=== PATIENT | male | born 1965 | race Caucasian/White ===

== ENCOUNTER 2018-09-05 15:32 | Emergency (ER) | payer MEDICARE, OTHER ==
[~2018-09-05] VITALS: Ht 177.8 cm; Wt 93.0 kg
--- OUTSIDE RECORDS SUMMARY | 2018-09-05 15:38 | XMS REPORT ---
Author Author JOSSUE TRUJILLO Organization [facility] Address [address] [place] [address] Care Team Providers Care Lead Business Systems Analyst Name Role Phone CASSANDRA JOSSUE Unavailable PROBLEMS Type Condition ICD9-CM Code [id number] Code Onset Dates Condition Status SNOMED Code Problem Chronic obstructive pulmonary disease, unspecified COPD type J44.9 Active 97649811 Problem Erectile dysfunction, unspecified erectile dysfunction type N52.9 Active 711638221 Problem Hypercholesteremia E78.00 Active 73615336 Problem Mixed hyperlipidemia E78.2 Active 691856885 Problem History of schizoaffective disorder Z86.59 Active 820700928 Problem Benign prostatic hyperplasia with lower urinary tract symptoms, unspecified morphology N40.1 Active 804261491 Problem Cigarette nicotine dependence without complication F17.210 Active 95758588 Problem History of gout Z87.39 Active 433618312 ALLERGIES No Known Allergies ENCOUNTERS Encounter Location Date Diagnosis [place] [address] [address] May, Chronic obstructive pulmonary disease, unspecified COPD type J44.9 [facility] [address] [place] [id number] [place] [address] May, Medicare annual wellness visit, initial Z00.00 ; Encounter for immunization Z23 ; Chronic obstructive pulmonary disease, unspecified COPD type J44.9 ; Mixed hyperlipidemia E78.2 ; Benign prostatic hyperplasia with lower urinary tract symptoms, unspecified morphology N40.1 ; Erectile dysfunction, unspecified erectile dysfunction type N52.9 ; Cigarette nicotine dependence without complication F17.210 and Hypercholesteremia E78.00 [facility] [address] [place] [id number] [place] [address] Dec, [facility] [address] [place] [id number] [place] [address] Aug, Hypercholesteremia E78.00 [place] [address] [place] [id number] [place] [address] Aug, Chronic obstructive pulmonary disease, unspecified COPD type J44.9 ; Mixed hyperlipidemia E78.2 ; Plantar fasciitis M72.2 and Cigarette nicotine dependence without complication F17.210 [place] [address] [place] [id number] [place] [address]65- [address] Aug, Chronic obstructive pulmonary disease, unspecified COPD type J44.9 ; Plantar fasciitis M72.2 ; Cigarette nicotine dependence without complication F17.210 and Mixed hyperlipidemia E78.[address] [address] May, Chronic obstructive pulmonary disease, unspecified COPD type J44.9 [place] [address] [address] Mar, [place] [address] [address] Mar, Chronic obstructive pulmonary disease, unspecified COPD type J44.9 ; Cigarette nicotine dependence without complication F17.210 and Encounter for immunization Z23 [place] [address] [place] [id number] [place] [address]- [address] 11 Mar, 2017 Chronic obstructive pulmonary disease, unspecified COPD type J44.9 ; Pseudogout of foot, right M11.271 ; Erectile dysfunction, unspecified erectile dysfunction type N52.9 and Benign prostatic hyperplasia with lower urinary tract symptoms, unspecified morphology N40.1 [place] [address] [place] [id number] [place] [address]- [address]153 Sep, [address] [address] Sep, Chronic obstructive pulmonary disease, unspecified COPD type J44.9 ; Benign prostatic hyperplasia with lower urinary tract symptoms, unspecified morphology N40.1 and Screening cholesterol level Z13.220 [place] [address] [address] 14 Sep, 2016 Chronic obstructive pulmonary disease, unspecified COPD type J44.9 ; Pseudogout of foot, right M11.271 ; Erectile dysfunction, unspecified erectile dysfunction type N52.9 ; Benign prostatic hyperplasia with lower urinary tract symptoms, unspecified morphology N40.1 ; Pulmonary emphysema , unspecified emphysema type J43.9 and Screening cholesterol level Z13.220 [facility] [address] [facility] [id number] [address] Sep, [facility] [address] [facility] [id number] [place] [address] Aug, Right foot pain M79.671 IMMUNIZATIONS No Known Immunizations SOCIAL HISTORY Never Assessed REASON FOR VISIT New provider visit - Ant BATES, PT reports he has a lump in his chest for the last 7 years. -Ant BATES PLAN OF CARE VITAL SIGNS Height 70 in 2018-06-12 Weight 205.6 lbs 2018-06-12 Temperature 98.9 degrees Fahrenheit 2018-06-12 Heart Rate 86 bpm 2018-06-12 Respiratory Rate 20 2018-06-12 Oximetry 96 % 2018-06-12 BMI 29.5 kg/m2 2018-06-12 Blood pressure systolic 132 mmHg 2018-06-12 Blood pressure diastolic 80 mmHg 2018-06-12 MEDICATIONS Medication Instructions Dosage Frequency Start Date End Date Duration Status Indomethacin 50 mg TAKE ONE (1) CAPSULE BY MOUTH TWICE DAILY WITH FOOD OR MILK 60 Active Tamsulosin HCl 0.4 MG 1 capsule 24h 30 Active Atorvastatin Calcium 20 mg Orally Once a day 1 tablet 24h Aug, 30 day(s) Active ProAir HFA 108 (90 Base) MCG/ACT INHALE 2 PUFFS BY MOUTH EVERY 4 HOURS NEEDED Active Allopurinol 100 mg 1 tablet 24h 30 Active PredniSONE 20 mg Orally Once a day 2 tablets 24h May, 5 days Active Symbicort 160-4.5 MCG/ACT Inhalation 2 times a day 2 puffs 12h Mar, 30 days Active Viagra 100 MG TAKE ONE-HALF TABLET BY MOUTH ONCE DAILY NEEDED 30 MINUTES BEFORE SEX (MUST HAVE APPOINTMENT FOR REFILL) 18 Active Flomax 0.4 MG TAKE ONE CAPSULE BY MOUTH ONCE DAILY 30 Active RESULTS No Results PROCEDURES Procedure Date Ordered Result Body Site [facility] VISIT ESTABLISHED PATIENT Jun 12, 2018 INSTRUCTIONS MEDICATIONS ADMINISTERED No Known Medications MEDICAL (GENERAL) HISTORY Type Description Date Medical History bloody stools Medical History shizoaffective Medical History PTSD Medical History OCD Medical History bipolar Medical History Jaw Fx Medical History clavicle Fx Medical History emphysema Surgical History colonoscopy (also 2007) 2000 Surgical History jaw reconstruction 1985
--- OUTSIDE RECORDS SUMMARY | 2018-09-05 15:38 | XMS REPORT ---
Author Author PIPER VAUGHN Organization [facility] Address [address] [place] [address] Care Team Providers Care Hotel Front Desk Clerk Name Role Phone PIPER VAUGHN Unavailable PROBLEMS Type Condition ICD9-CM Code NVL63-BY Code Onset Dates Condition Status SNOMED Code Problem Chronic obstructive pulmonary disease, unspecified COPD type J44.9 Active 31948730 Problem Erectile dysfunction, unspecified erectile dysfunction type N52.9 Active 224559955 Problem Hypercholesteremia E78.00 Active 01366286 Problem Mixed hyperlipidemia E78.2 Active 378701279 Problem History of schizoaffective disorder Z86.59 Active 051462600 Problem Benign prostatic hyperplasia with lower urinary tract symptoms, unspecified morphology N40.1 Active 430683522 Problem Cigarette nicotine dependence without complication F17.210 Active 62773309 Problem History of gout Z87.39 Active 027289118 ALLERGIES No Information ENCOUNTERS Encounter Location Date Diagnosis [place] [address] [address] Dec, [place] [address] [place] [id number] [place] [address] Aug, Hypercholesteremia E78.00 [place] [address] [address] Aug, Chronic obstructive pulmonary disease, unspecified COPD type J44.9 ; Mixed hyperlipidemia E78.2 ; Plantar fasciitis M72.2 and Cigarette nicotine dependence without complication F17.210 [place] [address] [place] [id number] [place] [address] Aug, Chronic obstructive pulmonary disease, unspecified COPD type J44.9 ; Plantar fasciitis M72.2 ; Cigarette nicotine dependence without complication F17.210 and Mixed hyperlipidemia E78.2 [place] [address] [place] [id number] [address] 16 May, 2017 Chronic obstructive pulmonary disease, unspecified COPD type J44.9 [place] [address] [place] [id number] [place] [address]- [address] 12 Mar, 2017 [place] [address] [address] 28 Mar, 2017 Chronic obstructive pulmonary disease, unspecified COPD type J44.9 ; Cigarette nicotine dependence without complication F17.210 and Encounter for immunization Z23 [place] [address] [place] [id number] [place] [address]- [address] 11 Mar, 2017 Chronic obstructive pulmonary disease, unspecified COPD type J44.9 ; Pseudogout of foot, right M11.271 ; Erectile dysfunction, unspecified erectile dysfunction type N52.9 and Benign prostatic hyperplasia with lower urinary tract symptoms, unspecified morphology N40.1 [place] [id number] [place] [address]- [address] 18 Sep, 2016 [place] [address] [place] [id number] [place] [address]- [address] 17 Sep, 2016 Chronic obstructive pulmonary disease, unspecified COPD type J44.9 ; Benign prostatic hyperplasia with lower urinary tract symptoms, unspecified morphology N40.1 and Screening cholesterol level Z13.220 [place] [address] [address] 14 Sep, 2016 Chronic obstructive pulmonary disease, unspecified COPD type J44.9 ; Pseudogout of foot, right M11.271 ; Erectile dysfunction, unspecified erectile dysfunction type N52.9 ; Benign prostatic hyperplasia with lower urinary tract symptoms, unspecified morphology N40.1 ; Pulmonary emphysema , unspecified emphysema type J43.9 and Screening cholesterol level Z13.220 [place] [address] [place] [address]- [address] 11 Sep, 2016 [facility] WALK IN [facility] [address] [address] Aug, Right foot pain M79.671 IMMUNIZATIONS No Known Immunizations SOCIAL HISTORY Never Assessed REASON FOR VISIT Lab (walk-in) PLAN OF CARE VITAL SIGNS MEDICATIONS Unknown Medications RESULTS No Results PROCEDURES Procedure Date Ordered Result Body Site COMPREHEN METABOLIC PANEL September 12, 2017 LIPID PANEL September 12, 2017 INSTRUCTIONS MEDICATIONS ADMINISTERED No Known Medications MEDICAL (GENERAL) HISTORY Type Description Date Medical History bloody stools Medical History shizoaffective Medical History PTSD Medical History OCD Medical History bipolar Medical History Jaw Fx Medical History clavicle Fx Medical History emphysema Surgical History colonoscopy (also 2007) 2000 Surgical History jaw reconstruction 1985
--- OUTSIDE RECORDS SUMMARY | 2018-09-05 15:38 | XMS REPORT ---
Author Author PIPER VAUGHN Organization [facility] Address [address] [place] [address] Care Team Providers Care Flame Annealing Machine Operator Name Role Phone PIPER VAUGHN Unavailable PROBLEMS Type Condition ICD9-CM Code [id number]-[id number] Code Onset Dates Condition Status SNOMED Code Problem Chronic obstructive pulmonary disease, unspecified COPD type J44.9 Active 25235401 Problem Erectile dysfunction, unspecified erectile dysfunction type N52.9 Active 689286472 Problem Hypercholesteremia E78.00 Active 82895410 Problem Mixed hyperlipidemia E78.2 Active 088252661 Problem History of schizoaffective disorder Z86.59 Active 148877427 Problem Benign prostatic hyperplasia with lower urinary tract symptoms, unspecified morphology N40.1 Active 043282925 Problem Cigarette nicotine dependence without complication F17.210 Active 03996455 Problem History of gout Z87.39 Active 696582057 ALLERGIES No Information ENCOUNTERS Encounter Location Date Diagnosis [place] [address] [address] Dec, [place] [address] [place] [id number] [place] [address]- [address] Aug, Hypercholesteremia E78.00 [place] [address] [place] [id number] [place] [address]- [address] Aug, Chronic obstructive pulmonary disease, unspecified COPD type J44.9 ; Mixed hyperlipidemia E78.2 ; Plantar fasciitis M72.2 and Cigarette nicotine dependence without complication F17.210 [place] [address] [place] [id number] [place] [address]- [address] Aug, Chronic obstructive pulmonary disease, unspecified COPD type J44.9 ; Plantar fasciitis M72.2 ; Cigarette nicotine dependence without complication F17.210 and Mixed hyperlipidemia E78.2 [place] [address] [place] [id number] [address] 16 May, 2017 Chronic obstructive pulmonary disease, unspecified COPD type J44.9 [place] [address] [place] [id number] [place] [address]- [address] 12 Mar, 2017 [place] [address] [address] 28 Mar, 2017 Chronic obstructive pulmonary disease, unspecified COPD type J44.9 ; Cigarette nicotine dependence without complication F17.210 and Encounter for immunization Z23 [place] [address] [place] [id number] [place] [address]65- 3[address] 11 Mar, 2017 Chronic obstructive pulmonary disease, unspecified COPD type J44.9 ; Pseudogout of foot, right M11.271 ; Erectile dysfunction, unspecified erectile dysfunction type N52.9 and Benign prostatic hyperplasia with lower urinary tract symptoms, unspecified morphology N40.1 [place] [id number] [place] [address]- [address] 18 Sep, 2016 [place] [address] [place] [id number] [place] [address] 89283- 24[address] 17 Sep, 2016 Chronic obstructive pulmonary disease, unspecified COPD type J44.9 ; Benign prostatic hyperplasia with lower urinary tract symptoms, unspecified morphology N40.1 and Screening cholesterol level Z13.220 [place] [address] [address] 14 Sep, 2016 Chronic obstructive pulmonary disease, unspecified COPD type J44.9 ; Pseudogout of foot, right M11.271 ; Erectile dysfunction, unspecified erectile dysfunction type N52.9 ; Benign prostatic hyperplasia with lower urinary tract symptoms, unspecified morphology N40.1 ; Pulmonary emphysema , unspecified emphysema type J43.9 and Screening cholesterol level Z13.220 [place] [address] [place] [address]32- 2135 11 Sep, 2016 [facility] WALK IN [facility] [address] [address] Aug, Right foot pain M79.671 IMMUNIZATIONS No Known Immunizations SOCIAL HISTORY Never Assessed REASON FOR VISIT med refill PLAN OF CARE VITAL SIGNS MEDICATIONS Medication Instructions Dosage Frequency Start Date End Date Duration Status ProAir HFA 108 (90 Base) MCG/ACT INHALE 2 PUFFS BY MOUTH EVERY 4 HOURS NEEDED Active RESULTS No Results PROCEDURES No Known procedures INSTRUCTIONS MEDICATIONS ADMINISTERED No Known Medications MEDICAL (GENERAL) HISTORY Type Description Date Medical History bloody stools Medical History shizoaffective Medical History PTSD Medical History OCD Medical History bipolar Medical History Jaw Fx Medical History clavicle Fx Medical History emphysema Surgical History colonoscopy (also 2007) 2000 Surgical History jaw reconstruction 1985
--- OUTSIDE RECORDS SUMMARY | 2018-09-05 15:38 | XMS REPORT ---
Author Author PIPER VAUGHN Organization [facility] Address [address] [place] [address] Care Team Providers Care Data Management Associate Name Role Phone PIPER VAUGHN Unavailable PROBLEMS Type Condition ICD9-CM Code WAQ48-RW Code Onset Dates Condition Status SNOMED Code Problem Chronic obstructive pulmonary disease, unspecified COPD type J44.9 Active 93685604 Problem Erectile dysfunction, unspecified erectile dysfunction type N52.9 Active 488571929 Problem Hypercholesteremia E78.00 Active 93234834 Problem Mixed hyperlipidemia E78.2 Active 828432090 Problem History of schizoaffective disorder Z86.59 Active 032197306 Problem Benign prostatic hyperplasia with lower urinary tract symptoms, unspecified morphology N40.1 Active 280028106 Problem Cigarette nicotine dependence without complication F17.210 Active 91009549 Problem History of gout Z87.39 Active 717525500 ALLERGIES No Information ENCOUNTERS Encounter Location Date Diagnosis [place] [address] [address] Dec, [place] [address] [place] [id number] [place] [address]- [address] Aug, Hypercholesteremia E78.00 [place] [address] [address] Aug, Chronic obstructive pulmonary disease, unspecified COPD type J44.9 ; Mixed hyperlipidemia E78.2 ; Plantar fasciitis M72.2 and Cigarette nicotine dependence without complication F17.210 [place] [address] [place] [id number] [place] [address]- [address] Aug, Chronic obstructive pulmonary disease, unspecified COPD type J44.9 ; Plantar fasciitis M72.2 ; Cigarette nicotine dependence without complication F17.210 and Mixed hyperlipidemia E78.2 [place] [address] [place] [id number] [address] 16 May, 2017 Chronic obstructive pulmonary disease, unspecified COPD type J44.9 [place] [address] [place] [id number] [place] [address]- [address] 12 Mar, 2017 [place] [address] [address] 28 Mar, 2017 Chronic obstructive pulmonary disease, unspecified COPD type J44.9 ; Cigarette nicotine dependence without complication F17.210 and Encounter for immunization Z23 [place] [address] [place] [id number] [place] [address] 6[address]- [address] 11 Mar, 2017 Chronic obstructive pulmonary disease, unspecified COPD type J44.9 ; Pseudogout of foot, right M11.271 ; Erectile dysfunction, unspecified erectile dysfunction type N52.9 and Benign prostatic hyperplasia with lower urinary tract symptoms, unspecified morphology N40.1 [place] [id number] [place] [address]- [address] 18 Sep, 2016 [place] [address] [place] [id number] [place] [address] 19714- 69[address] 17 Sep, 2016 Chronic obstructive pulmonary disease, unspecified COPD type J44.9 ; Benign prostatic hyperplasia with lower urinary tract symptoms, unspecified morphology N40.1 and Screening cholesterol level Z13.220 [place] [address] [address]- [address] 14 Sep, 2016 Chronic obstructive pulmonary disease, unspecified COPD type J44.9 ; Pseudogout of foot, right M11.271 ; Erectile dysfunction, unspecified erectile dysfunction type N52.9 ; Benign prostatic hyperplasia with lower urinary tract symptoms, unspecified morphology N40.1 ; Pulmonary emphysema , unspecified emphysema type J43.9 and Screening cholesterol level Z13.220 [place] [address] [place] [address] 52676- 7679 11 Sep, 2016 [facility] WALK IN [facility] [address] [address] Aug, Right foot pain M79.671 IMMUNIZATIONS No Known Immunizations SOCIAL HISTORY Never Assessed REASON FOR VISIT PLAN OF CARE VITAL SIGNS MEDICATIONS Medication Instructions Dosage Frequency Start Date End Date Duration Status Atorvastatin Calcium 20 mg Orally Once a day 1 tablet 24h Aug, 30 day(s) Active RESULTS No Results PROCEDURES No Known [...]
--- OUTSIDE RECORDS SUMMARY | 2018-09-05 15:38 | XMS REPORT ---
Author Author PIPER VAUGHN Organization [facility] Address [address] [place] [address] Care Team Providers Care Insurance Verify Rep Name Role Phone PIPER VAUGHN Unavailable PROBLEMS Type Condition ICD9-CM Code MQP64-EC Code Onset Dates Condition Status SNOMED Code Problem Chronic obstructive pulmonary disease, unspecified COPD type J44.9 Active 98820669 Problem Erectile dysfunction, unspecified erectile dysfunction type N52.9 Active 500886563 Problem Hypercholesteremia E78.00 Active 71871438 Problem Mixed hyperlipidemia E78.2 Active 885486698 Problem History of schizoaffective disorder Z86.59 Active 702811849 Problem Benign prostatic hyperplasia with lower urinary tract symptoms, unspecified morphology N40.1 Active 950178909 Problem Cigarette nicotine dependence without complication F17.210 Active 65844800 Problem History of gout Z87.39 Active 368584827 ALLERGIES No Known Allergies ENCOUNTERS Encounter Location Date Diagnosis [place] [address] [place] [address] May, Medicare annual wellness visit, initial Z00.00 ; Encounter for immunization Z23 ; Chronic obstructive pulmonary disease, unspecified COPD type J44.9 ; Mixed hyperlipidemia E78.2 ; Benign prostatic hyperplasia with lower urinary tract symptoms, unspecified morphology N40.1 ; Erectile dysfunction, unspecified erectile dysfunction type N52.9 ; Cigarette nicotine dependence without complication F17.210 and Hypercholesteremia E78.00 [facility] [id number] [address] Dec, [facility] [address] [place] [address]51[address] Aug, Hypercholesteremia E78.00 [facility] [address] [place] [address] Aug, Chronic obstructive pulmonary disease, unspecified COPD type J44.9 ; Mixed hyperlipidemia E78.2 ; Plantar fasciitis M72.2 and Cigarette nicotine dependence without complication F17.210 [place] [address] [place] [id number] [place] [address] 16[address]- [address] 13 Aug, 2017 Chronic obstructive pulmonary disease, unspecified COPD type J44.9 ; Plantar fasciitis M72.2 ; Cigarette nicotine dependence without complication F17.210 and Mixed hyperlipidemia E78.2 [place] [address] [address] 16 May, 2017 Chronic obstructive pulmonary disease, unspecified COPD type J44.9 [place] [address] [address]- [address] 12 Mar, 2017 [place] [address] [address] 28 Mar, 2017 Chronic obstructive pulmonary disease, unspecified COPD type J44.9 ; Cigarette nicotine dependence without complication F17.210 and Encounter for immunization Z23 [place] [address] [place] [id number] [place] [address]3979- 4[address] 11 Mar, 2017 Chronic obstructive pulmonary disease, unspecified COPD type J44.9 ; Pseudogout of foot, right M11.271 ; Erectile dysfunction, unspecified erectile dysfunction type N52.9 and Benign prostatic hyperplasia with lower urinary tract symptoms, unspecified morphology N40.1 [place] [id number] [place] [address] 09929- 7698 18 Sep, 2016 [place] [address] [place] [id number] [place] [address] 92600- 2776 17 Sep, 2016 Chronic obstructive pulmonary disease, unspecified COPD type J44.9 ; Benign prostatic hyperplasia with lower urinary tract symptoms, unspecified morphology N40.1 and Screening cholesterol level Z13.220 [place] [address] [place] [id number] [place] [address] 96864- 9065 14 Sep, 2016 Chronic obstructive pulmonary disease, unspecified COPD type J44.9 ; Pseudogout of foot, right M11.271 ; Erectile dysfunction, unspecified erectile dysfunction type N52.9 ; Benign prostatic hyperplasia with lower urinary tract symptoms, unspecified morphology N40.1 ; Pulmonary emphysema , unspecified emphysema type J43.9 and Screening cholesterol level Z13.220 [facility] [address] [facility] [id number] [place] [address] Sep, [facility] [address] [facility] [id number] [place] [address] Aug, Right foot pain M79.671 IMMUNIZATIONS Vaccine Route Administration Date Status FLULAVAL QUAD 0.5ML (6 MO & UP) 2017 IM Intramuscular May 01, 2018 Administered SOCIAL HISTORY Never Assessed REASON FOR VISIT Medicare AWV - Initial Visit Carolann BATES PLAN OF CARE Activity Details Follow Up 1 Year Reason:AWV VITAL SIGNS Height 70 in 2018-05-01 Weight 201 lbs 2018-05-01 Temperature 98.2 degrees Fahrenheit 2018-05-01 Heart Rate 101 bpm 2018-05-01 Respiratory Rate 20 2018-05-01 BMI 28.84 kg/m2 2018-05-01 Blood pressure systolic 116 mmHg 2018-05-01 Blood pressure diastolic 76 mmHg 2018-05-01 MEDICATIONS Medication Instructions Dosage Frequency Start Date End Date Duration Status Flomax 0.4 MG TAKE ONE CAPSULE BY MOUTH ONCE DAILY 30 Active Atorvastatin Calcium 20 mg Orally Once a day 1 tablet 24h Aug, 30 day(s) Active Symbicort 160-4.5 MCG/ACT Inhalation 2 times a day 2 puffs 12h 28 Mar, 2017 30 days Active Allopurinol 100 MG TAKE ONE (1) TABLET BY MOUTH ONCE DAILY 30 Active Viagra 100 MG TAKE ONE-HALF TABLET BY MOUTH ONCE DAILY NEEDED 30 MINUTES BEFORE SEX (MUST HAVE APPOINTMENT FOR REFILL) 18 Active Indomethacin 50 MG TAKE ONE (1) CAPSULE BY MOUTH TWICE DAILY WITH FOOD OR MILK 60 Active ProAir HFA 108 (90 Base) MCG/ACT INHALE 2 PUFFS BY MOUTH EVERY 4 HOURS NEEDED Active Atorvastatin Calcium 10 MG TAKE ONE (1) TABLET BY MOUTH ONCE DAILY 30 Active Tamsulosin HCl 0.4 MG TAKE ONE (1) CAPSULE BY MOUTH ONCE DAILY 30 Active RESULTS No Results PROCEDURES Procedure Date Ordered Result Body Site ADVNCD CARE PLAN 30 MIN May 01, 2018 FLULAVAL QUAD 0.5ML (6 MO AND UP) 2017May 01, 2018 [facility] VISIT IPPE/AWV May 01, 2018 SINGLE IMMUNIZATION ADMIN May 01, 2018 ANNUAL OLIVA VST; PERSNL PPS INIT May 01, 2018 INSTRUCTIONS MEDICATIONS ADMINISTERED No Known Medications MEDICAL (GENERAL) HISTORY Type Description Date Medical History bloody stools Medical History shizoaffective Medical History PTSD Medical History OCD Medical History bipolar Medical History Jaw Fx Medical History clavicle Fx Medical History emphysema Surgical History colonoscopy (also 2007) 2000 Surgical History jaw reconstruction 1985
--- OUTSIDE RECORDS SUMMARY | 2018-09-05 15:39 | XMS REPORT ---
Author Author PIPER VAUGHN Organization [facility] Address [address] [place] [address] Care Team Providers Care Elevator Operator Name Role Phone PIPER VAUGHN Unavailable PROBLEMS Type Condition ICD9-CM Code SMU03-MF Code Onset Dates Condition Status SNOMED Code Problem Chronic obstructive pulmonary disease, unspecified COPD type J44.9 Active 57455785 Problem Erectile dysfunction, unspecified erectile dysfunction type N52.9 Active 200388379 Problem Hypercholesteremia E78.00 Active 66363567 Problem Mixed hyperlipidemia E78.2 Active 869936492 Problem History of schizoaffective disorder Z86.59 Active 869456631 Problem Benign prostatic hyperplasia with lower urinary tract symptoms, unspecified morphology N40.1 Active 613632184 Problem Cigarette nicotine dependence without complication F17.210 Active 96125136 Problem History of gout Z87.39 Active 498145498 ALLERGIES No Known Allergies ENCOUNTERS Encounter Location Date Diagnosis [place] [address] [address] Dec, [place] [address] [address] Aug, Hypercholesteremia E78.00 [place] [address] [address] Aug, Chronic obstructive pulmonary disease, unspecified COPD type J44.9 ; Mixed hyperlipidemia E78.2 ; Plantar fasciitis M72.2 and Cigarette nicotine dependence without complication F17.210 [place] [address] [address] Aug, Chronic obstructive pulmonary disease, unspecified COPD type J44.9 ; Plantar fasciitis M72.2 ; Cigarette nicotine dependence without complication F17.210 and Mixed hyperlipidemia E78.2 [place] [address], [place] [address] 16 May, 2017 Chronic obstructive pulmonary disease, unspecified COPD type J44.9 [place] [address] [place] [id number] [place] [address]- [address] 12 Mar, 2017 [place] [address] [place] [address] 62931- 79[address] 28 Mar, 2017 Chronic obstructive pulmonary disease, unspecified COPD type J44.9 ; Cigarette nicotine dependence without complication F17.210 and Encounter for immunization Z23 [place] [address] [place] [id number] [place] [address] 11 Mar, 2017 Chronic obstructive pulmonary disease, unspecified COPD type J44.9 ; Pseudogout of foot, right M11.271 ; Erectile dysfunction, unspecified erectile dysfunction type N52.9 and Benign prostatic hyperplasia with lower urinary tract symptoms, unspecified morphology N40.1 [place] [address] [place] [id number] [place] [address] 48681- 79[address] 18 Sep, 2016 [place] [address] [place] [id number] [place] [address] 71061- 0098 17 Sep, 2016 Chronic obstructive pulmonary disease, unspecified COPD type J44.9 ; Benign prostatic hyperplasia with lower urinary tract symptoms, unspecified morphology N40.1 and Screening cholesterol level Z13.220 [place] [address] [place] [address] 75643- 6[address] 14 Sep, 2016 Chronic obstructive pulmonary disease, unspecified COPD type J44.9 ; Pseudogout of foot, right M11.271 ; Erectile dysfunction, unspecified erectile dysfunction type N52.9 ; Benign prostatic hyperplasia with lower urinary tract symptoms, unspecified morphology N40.1 ; Pulmonary emphysema , unspecified emphysema type J43.9 and Screening cholesterol level Z13.220 [place] [address], [place] [address] 11 Sep, 2016 [facility] [address], [place] [address] Aug, Right foot pain M79.671 IMMUNIZATIONS No Known Immunizations SOCIAL HISTORY Never Assessed REASON FOR VISIT Transition of Care, PT has bad lower back pain and sees a chiropractorMarylou BATES PLAN OF CARE Activity Details Follow Up Will call after lab Reason: VITAL SIGNS Height 70 in 2017-09-10 Weight 211.7 lbs 2017-09-10 Temperature 98.9 degrees Fahrenheit 2017-09-10 Heart Rate 84 bpm 2017-09-10 Respiratory Rate 20 2017-09-10 BMI 30.37 kg/m2 2017-09-10 Blood pressure systolic 108 mmHg 2017-09-10 Blood pressure diastolic 76 mmHg 2017-09-10 MEDICATIONS Medication Instructions Dosage Frequency Start Date End Date Duration Status Indomethacin 50 MG TAKE ONE CAPSULE BY MOUTH TWICE DAILY WITH FOOD OR MILK 60 Active Flomax 0.4 MG TAKE ONE CAPSULE BY MOUTH ONCE DAILY 30 Active ProAir HFA 108 (90 Base) MCG/ACT INHALE 2 PUFFS BY MOUTH EVERY 4 HOURS NEEDED 17 Active Allopurinol 100 MG TAKE ONE TABLET BY MOUTH ONCE DAILY 30 Active Symbicort 160-4.5 MCG/ACT Inhalation 2 times a day 2 puffs 12h 28 Mar, 2017 30 days Active Atorvastatin Calcium 10 MG TAKE ONE TABLET BY MOUTH ONCE DAILY 30 Active Viagra 100 MG TAKE ONE-HALF TABLET BY MOUTH ONCE DAILY NEEDED 30 MINUTES BEFORE SEX (MUST HAVE APPOINTMENT FOR REFILL) 18 Active RESULTS No Results PROCEDURES No Known [...]
--- OUTSIDE RECORDS SUMMARY | 2018-09-05 15:39 | XMS REPORT ---
Author Author PIPER VAUGHN Organization [facility] Address [address] [place] [address] Care Team Providers Care Resident Caregiver Name Role Phone PIPER VAUGHN Unavailable PROBLEMS Type Condition ICD9-CM Code IRV53-AU Code Onset Dates Condition Status SNOMED Code Problem Chronic obstructive pulmonary disease, unspecified COPD type J44.9 Active 92827591 Problem Erectile dysfunction, unspecified erectile dysfunction type N52.9 Active 638503853 Problem Hypercholesteremia E78.00 Active 44246230 Problem Mixed hyperlipidemia E78.2 Active 463545534 Problem History of schizoaffective disorder Z86.59 Active 898639332 Problem Benign prostatic hyperplasia with lower urinary tract symptoms, unspecified morphology N40.1 Active 357863941 Problem Cigarette nicotine dependence without complication F17.210 Active 83070279 Problem History of gout Z87.39 Active 038376371 ALLERGIES No Known Allergies ENCOUNTERS Encounter Location Date Diagnosis [facility] [address] [place] [id number] [place] [address]- [address] 19 Aug, 2017 Hypercholesteremia E78.00 [facility] [address] [place] [address] 13240- 2322 15 Aug, 2017 Chronic obstructive pulmonary disease, unspecified COPD type J44.9 ; Mixed hyperlipidemia E78.2 ; Plantar fasciitis M72.2 and Cigarette nicotine dependence without complication F17.210 [facility] [address] [place] [address] 71959- 73[address] 13 Aug, 2017 Chronic obstructive pulmonary disease, unspecified COPD type J44.9 ; Plantar fasciitis M72.2 ; Cigarette nicotine dependence without complication F17.210 and Mixed hyperlipidemia E78.2 [facility] [address] [place] [address] 61264- 2181 16 May, 2017 Chronic obstructive pulmonary disease, unspecified COPD type J44.9 [place] [address] [place] [address]- [address]68 Mar, [place] [address] [place] [id number] [place] [address] 22185- 58[address] 28 Mar, 2017 Chronic obstructive pulmonary disease, unspecified COPD type J44.9 ; Cigarette nicotine dependence without complication F17.210 and Encounter for immunization Z23 [place] [id number] [place] [address]65- [address] 11 Mar, 2017 Chronic obstructive pulmonary disease, unspecified COPD type J44.9 ; Pseudogout of foot, right M11.271 ; Erectile dysfunction, unspecified erectile dysfunction type N52.9 and Benign prostatic hyperplasia with lower urinary tract symptoms, unspecified morphology N40.1 [place] [id number] [place] [address]13- [address] 18 Sep, 2016 [place] [id number] [place] [address] 03216- 389[address] 17 Sep, 2016 Chronic obstructive pulmonary disease, unspecified COPD type J44.9 ; Benign prostatic hyperplasia with lower urinary tract symptoms, unspecified morphology N40.1 and Screening cholesterol level Z13.220 [place] [address] [place] [id number] [place] [address] 07190- 0140 14 Sep, 2016 Chronic obstructive pulmonary disease, unspecified COPD type J44.9 ; Pseudogout of foot, right M11.271 ; Erectile dysfunction, unspecified erectile dysfunction type N52.9 ; Benign prostatic hyperplasia with lower urinary tract symptoms, unspecified morphology N40.1 ; Pulmonary emphysema , unspecified emphysema type J43.9 and Screening cholesterol level Z13.[address] [address] 11 Sep, 2016 [facility] [address] [place] [address] Aug, Right foot pain M79.671 IMMUNIZATIONS Vaccine Route Administration Date Status FLU Vaccine (History) IM Intramuscular Mar 28, 2017 Administered PPSV23 (PNEUMOVAX) IM Intramuscular Mar 28, 2017 Administered SOCIAL HISTORY Never Assessed REASON FOR VISIT f/u breathing problems, PT is still wheezing and coughing- Vickey BATES, PT was seen in [facility] for the breathing problems about a month ago PLAN OF CARE Activity Details Follow Up 6 Months Reason: VITAL SIGNS Height 70 in 2017-03-28 Weight 211.5 lbs 2017-03-28 Temperature 98.5 degrees Fahrenheit 2017-03-28 Heart Rate 95 bpm 2017-03-28 Respiratory Rate 22 2017-03-28 Oximetry 95 % 2017-03-28 BMI 30.34 kg/m2 2017-03-28 Blood pressure systolic 110 mmHg 2017-03-28 Blood pressure diastolic 78 mmHg 2017-03-28 MEDICATIONS Medication Instructions Dosage Frequency Start Date End Date Duration Status Allopurinol 100 MG Orally Once a day 1 tablet 24h Sep, 30 day(s ) Active ProAir HFA 108 (90 Base) mcg/act Inhalation every 4 hrs 2 puffs as needed 4h Sep, 30 days Active Flomax 0.4 mg Orally Once a day 1 capsule 24h Sep, 30 day(s) Active Atorvastatin Calcium 10 mg Orally Once a day 1 tablet 24h 18 Sep, 2016 30 day(s) Active Symbicort 160-4.5 MCG/ACT Inhalation 2 times a day 2 puffs 12h Mar, Sep, 30 days Active Viagra 100 mg Orally 30 minutes before sex 1/2 tablet as needed Sep, Mar, 30 day(s) Active Indomethacin 50 MG Orally Twice a day 1 capsule with food or milk 12h Sep, 30 day(s) Active RESULTS No Results PROCEDURES Procedure Date Ordered Result Body Site MEASURE BLOOD OXYGEN LEVEL Mar 28, 2017 PPSV23 (PNEUMOVAX) Mar 28, 2017 FLU Vaccine (History) Mar 28, 2017 IMMUNIZATION ADMIN, EACH ADD (please include units) Mar 28, 2017 SINGLE IMMUNIZATION ADMIN Mar 28, 2017 INSTRUCTIONS MEDICATIONS ADMINISTERED No Known Medications MEDICAL (GENERAL) HISTORY Type Description Date Medical History bloody stools Medical History shizoaffective Medical History PTSD Medical History OCD Medical History bipolar Medical History Jaw Fx Medical History clavicle Fx Medical History emphysema Surgical History colonoscopy (also 2008) 2000 Surgical History jaw reconstruction 1985
--- OUTSIDE RECORDS SUMMARY | 2018-09-05 15:39 | XMS REPORT ---
Author Author CHUNG Chatterjee Organization [facility] Address [address] [place] [address] Care Team Providers Care Certified [employer] Administrator Name Role Phone Sen CHUNG Unavailable PROBLEMS Type Condition ICD9-CM Code [id number] Code Onset Dates Condition Status SNOMED Code Problem Chronic obstructive pulmonary disease, unspecified COPD type J44.9 Active 97342363 Problem Erectile dysfunction, unspecified erectile dysfunction type N52.9 Active 191908211 Problem Hypercholesteremia E78.00 Active 43531613 Problem Mixed hyperlipidemia E78.2 Active 060042646 Problem History of schizoaffective disorder Z86.59 Active 878358660 Problem Benign prostatic hyperplasia with lower urinary tract symptoms, unspecified morphology N40.1 Active 176285658 Problem Cigarette nicotine dependence without complication F17.210 Active 09847992 Problem History of gout Z87.39 Active 031200302 ALLERGIES No Information ENCOUNTERS Encounter Location Date Diagnosis [facility] [id number] [place] [address] 19 Aug, 2017 Hypercholesteremia E78.00 [facility] [address] [place] [address] 06402- 5093 15 Aug, 2017 Chronic obstructive pulmonary disease, unspecified COPD type J44.9 ; Mixed hyperlipidemia E78.2 ; Plantar fasciitis M72.2 and Cigarette nicotine dependence without complication F17.210 [facility] [id number] [place] [address] 05671- 7[address] 13 Aug, 2017 Chronic obstructive pulmonary disease, unspecified COPD type J44.9 ; Plantar fasciitis M72.2 ; Cigarette nicotine dependence without complication F17.210 and Mixed hyperlipidemia E78.2 [facility] [id number] [place] [address] 92396- [address] May, Chronic obstructive pulmonary disease, unspecified COPD type J44.9 [facility] [address], [place] [address] Mar, [place] [id number] [place] [address] 26951- [address] Mar, Chronic obstructive pulmonary disease, unspecified COPD type J44.9 ; Cigarette nicotine dependence without complication F17.210 and Encounter for immunization Z23 [place] [id number] [place] [address] 58[address]- 0[address] 11 Mar, 2017 Chronic obstructive pulmonary disease, unspecified COPD type J44.9 ; Pseudogout of foot, right M11.271 ; Erectile dysfunction, unspecified erectile dysfunction type N52.9 and Benign prostatic hyperplasia with lower urinary tract symptoms, unspecified morphology N40.1 [place] [id number] [place] [address] 38077- 4969 18 Sep, 2016 [place] [id number] [place] [address] 24749- 6880 17 Sep, 2016 Chronic obstructive pulmonary disease, unspecified COPD type J44.9 ; Benign prostatic hyperplasia with lower urinary tract symptoms, unspecified morphology N40.1 and Screening cholesterol level Z13.220 [place] [address] [id number] [place] [address] 36072- 4358 14 Sep, 2016 Chronic obstructive pulmonary disease, unspecified COPD type J44.9 ; Pseudogout of foot, right M11.271 ; Erectile dysfunction, unspecified erectile dysfunction type N52.9 ; Benign prostatic hyperplasia with lower urinary tract symptoms, unspecified morphology N40.1 ; Pulmonary emphysema , unspecified emphysema type J43.9 and Screening cholesterol level Z13.220 [place] [id number] [place] [address] 05355- [address] Sep, [facility] [address] [place] [address] 26088 -[address] Aug, Right foot pain M79.671 IMMUNIZATIONS No Known Immunizations SOCIAL HISTORY Never Assessed REASON FOR VISIT Refill request PLAN OF CARE VITAL SIGNS MEDICATIONS Unknown Medications RESULTS No Results PROCEDURES No Known procedures [...]
--- OUTSIDE RECORDS SUMMARY | 2018-09-05 15:39 | XMS REPORT ---
Author Author CHUNG Chatterjee Organization [facility] Address [address] [place] [address] Care Team Providers Care Soa Engineer Name Role Phone Sen CHUNG Unavailable PROBLEMS Type Condition ICD9-CM Code LJA76-XT Code Onset Dates Condition Status SNOMED Code Problem Chronic obstructive pulmonary disease, unspecified COPD type J44.9 Active 30841918 Problem Erectile dysfunction, unspecified erectile dysfunction type N52.9 Active 693500478 Problem Hypercholesteremia E78.00 Active 86477221 Problem Mixed hyperlipidemia E78.2 Active 791488335 Problem History of schizoaffective disorder Z86.59 Active 111693307 Problem Benign prostatic hyperplasia with lower urinary tract symptoms, unspecified morphology N40.1 Active 486270468 Problem Cigarette nicotine dependence without complication F17.210 Active 77971013 Problem History of gout Z87.39 Active 413401716 ALLERGIES No Information ENCOUNTERS Encounter Location Date Diagnosis [facility] [id number] [place] [phone] 19 Aug, 2017 Hypercholesteremia E78.00 [facility] [id number] [place] [phone] 15 Aug, 2017 Chronic obstructive pulmonary disease, unspecified COPD type J44.9 ; Mixed hyperlipidemia E78.2 ; Plantar fasciitis M72.2 and Cigarette nicotine dependence without complication F17.210 [facility] [id number] [place] [phone] 13 Aug, 2017 Chronic obstructive pulmonary disease, unspecified COPD type J44.9 ; Plantar fasciitis M72.2 ; Cigarette nicotine dependence without complication F17.210 and Mixed hyperlipidemia E78.2 [facility] [id number] [place] [phone] May, Chronic obstructive pulmonary disease, unspecified COPD type J44.9 [facility] [address] [phone] Mar, [place] [id number] [place] [phone] Mar, Chronic obstructive pulmonary disease, unspecified COPD type J44.9 ; Cigarette nicotine dependence without complication F17.210 and Encounter for immunization Z23 [id number] [place] [phone] 11 Mar, 2017 Chronic obstructive pulmonary disease, unspecified COPD type J44.9 ; Pseudogout of foot, right M11.271 ; Erectile dysfunction, unspecified erectile dysfunction type N52.9 and Benign prostatic hyperplasia with lower urinary tract symptoms, unspecified morphology N40.1 [id number] [place] [address] [phone] 18 Sep, [id number] [place] [phone] 17 Sep, 2016 Chronic obstructive pulmonary disease, unspecified COPD type J44.9 ; Benign prostatic hyperplasia with lower urinary tract symptoms, unspecified morphology N40.1 and Screening cholesterol level Z13.220 [id number] [place] [address] [phone] 14 Sep, 2016 Chronic obstructive pulmonary disease, unspecified COPD type J44.9 ; Pseudogout of foot, right M11.271 ; Erectile dysfunction, unspecified erectile dysfunction type N52.9 ; Benign prostatic hyperplasia with lower urinary tract symptoms, unspecified morphology N40.1 ; Pulmonary emphysema , unspecified emphysema type J43.9 and Screening cholesterol level Z13.220 [id number] [place] [address] [phone] 11 Sep, 2016 [facility] [id number] [place] [phone] Aug, Right foot pain M79.671 IMMUNIZATIONS No Known Immunizations SOCIAL HISTORY Never Assessed REASON FOR VISIT medication refills PLAN OF CARE VITAL SIGNS MEDICATIONS Medication Instructions Dosage Frequency Start Date End Date Duration Status ProAir HFA 108 (90 Base) mcg/act Inhalation every 4 hrs 2 puffs as needed 4h 14 Sep, 2016 30 days Active Flomax 0.4 mg Orally Once a day 1 capsule 24h Sep, 30 day(s) Active Atorvastatin Calcium 10 mg Orally Once a day 1 tablet 24h 18 Sep, 2016 30 day(s) Active Allopurinol 100 MG Orally Once a day 1 tablet 24h Sep, 30 day(s ) Active Indomethacin 50 MG Orally Twice a day 1 capsule with food or milk 12h Sep, 30 day(s) Active Viagra 100 mg Orally 30 minutes before sex 1/2 tablet as needed Sep, Mar, 30 day(s) Active RESULTS No Results PROCEDURES No Known procedures INSTRUCTIONS MEDICATIONS ADMINISTERED No Known Medications MEDICAL (GENERAL) HISTORY Type Description Date Medical History bloody stools Medical History shizoaffective Medical History PTSD Medical History OCD Medical History bipolar Medical History Jaw Fx Medical History clavicle Fx Medical History emphysema Surgical History colonoscopy (also 2007) 2000 Surgical History jaw reconstruction 1984
[2018-09-05 16:26] LABS: HEMATOCRIT 45 % (40-54); HEMOGLOBIN 15.4 G/DL (13.3-17.7); MEAN CORPUSCULAR HEMOGLOBIN 32 PG (25-34); MEAN CORPUSCULAR HGB CONC 34 G/DL (32-36); MEAN CORPUSCULAR VOLUME 94 FL (80-99); RED CELL DISTRIBUTION WIDTH 13.3 % (10.0-14.5); WHITE BLOOD COUNT 8.6 10^3/uL (4.3-11.0)
--- NOTE | 2018-09-05 16:26 | ED General ---
General Chief Complaint: Abdominal/GI Problems Stated Complaint: RIB PAIN History of Present Illness Date Seen by Provider: Sep 05, 2018 Time Seen by Provider: 15:50 Initial Comments Patient is a 52-year-old male who presents to the ER complaining of left upper abdominal and rib cage pain. He states the pain started earlier today but became more severe this afternoon. He did not have any trauma. He has had prior episodes of the pain but did not seek medical attention and the pain resolved on its own. Today however it lasted longer and was more intense. He states the pain is worse when he takes a deep breath. He denies chest pain or palpitations. No lightheadedness. No recent fever, chills, cough. Patient does have a known history significant for hyperlipidemia, tobacco use. No known coronary artery disease history. (VANDANA MINOR DO) Allergies and Home Medications Allergies Coded Allergies: No Known Drug Allergies (Unverified , 09/05/18) Patient Home Medication List Home Medication List Reviewed: Yes (VANDANA MINOR DO) Review of Systems Review of Systems Constitutional: no symptoms reported EENTM: no symptoms reported Respiratory: no symptoms reported Cardiovascular: no symptoms reported Gastrointestinal: see HPI Musculoskeletal: no symptoms reported Skin: no symptoms reported (VANDANA MINOR DO) Past Ljlwiqe-Naclwy-Novxwj Hx Patient Social History Recent Foreign Travel: No Contact w/Someone Who Travel: No (VANDANA MINOR DO) Physical Exam Vital Signs Vital Signs - First Documented 09/05/18 16:21 Temp 98.1 Pulse 97 Resp 18 B/P (MAP) 119/74 (89) Pulse Ox 96 O2 Delivery Room Air (MIKE WELSH MD) Vital Signs Capillary Refill : (VANDANA MINOR DO) Height, Weight, BMI Height: '" Weight: lbs. oz. kg; BMI Method: General Appearance: No Apparent Distress, WD/WN HEENT: PERRL/EOMI, TMs Normal, Normal ENT Inspection Neck: Full Range of Motion, Normal Inspection Respiratory: Chest Non Tender, Lungs Clear, Normal Breath Sounds, No Accessory Muscle Use Cardiovascular: Regular Rate, Rhythm, No Edema Gastrointestinal: Normal Bowel Sounds, Non Tender, Soft Back: Normal Inspection Extremity: Normal Capillary Refill, Normal Inspection Neurologic/Psychiatric: Alert, Oriented x3 (VANDANA MINOR DO) Progress/Results/Core Measures Suspected Sepsis SIRS Temperature: Pulse: Respiratory Rate: Laboratory Tests 09/05/18 16:10: White Blood Count 8.6 Blood Pressure / Mean: Laboratory Tests 09/05/18 16:10: Platelet Count 279 (VANDANA MINOR DO) Results/Orders Lab Results Laboratory Tests Test 09/05/18 16:10 09/05/18 16:45 Range/Units White Blood Count 8.6 4.3-11.0 10^3/uL Red Blood Count 4.82 4.35-5.85 10^6/uL Hemoglobin 15.4 13.3-17.7 G/DL Hematocrit 45 40-54 % Mean Corpuscular Volume 94 80-99 FL Mean Corpuscular Hemoglobin 32 25-34 PG Mean Corpuscular Hemoglobin Concent 34 32-36 G/DL Red Cell Distribution Width 13.3 10.0-14.5 % Platelet Count 279 130-400 10^3/uL Mean Platelet Volume 9.2 7.4-10.4 FL Neutrophils (%) (Auto) 57 42-75 % Lymphocytes (%) (Auto) 29 12-44 % Monocytes (%) (Auto) 12 0-12 % Eosinophils (%) (Auto) 1 0-10 % Basophils (%) (Auto) 1 0-10 % Neutrophils # (Auto) 4.9 1.8-7.8 X 10^3 Lymphocytes # (Auto) 2.5 1.0-4.0 X 10^3 Monocytes # (Auto) 1.0 0.0-1.0 X 10^3 Eosinophils # (Auto) 0.1 0.0-0.3 10^3/uL Basophils # (Auto) 0.1 0.0-0.1 10^3/uL Sodium Level 138 135-145 MMOL/L Potassium Level 3.9 3.6-5.0 MMOL/L Chloride Level 100 98-107 MMOL/L Carbon Dioxide Level 30 21-32 MMOL/L Anion Gap 8 5-14 MMOL/L Blood Urea Nitrogen 16 7-18 MG/DL Creatinine 0.90 0.60-1.30 MG/DL Estimat Glomerular Filtration Rate > 60 BUN/Creatinine Ratio 18 Glucose Level 111 H 70-105 MG/DL Calcium Level 8.9 8.5-10.1 MG/DL Total Bilirubin 0.4 0.1-1.0 MG/DL Direct Bilirubin 0.2 0.0-0.3 MG/DL Indirect Bilirubin 0.2 MG/DL Aspartate Amino Transf (AST/SGOT) 26 5-34 U/L Alanine Aminotransferase (ALT/SGPT) 29 0-55 U/L Alkaline Phosphatase 74 40-136 U/L Troponin T 7 <=15 NG/L Total Protein 7.4 6.4-8.2 GM/DL Albumin 4.4 3.2-4.5 GM/DL Urine Color DARK YELLOW Urine Clarity CLOUDY H Urine pH 6.0 5-9 Urine Specific [place] 1.010 L 1.016-1.022 Urine Protein NEGATIVE NEGATIVE Urine Glucose (UA) NEGATIVE NEGATIVE Urine Ketones NEGATIVE NEGATIVE Urine Nitrite NEGATIVE NEGATIVE Urine Bilirubin NEGATIVE NEGATIVE Urine Urobilinogen NORMAL NORMAL MG/DL Urine Leukocyte Esterase NEGATIVE NEGATIVE Urine RBC (Auto) NEGATIVE NEGATIVE Urine RBC RARE /HPF Urine WBC RARE /HPF Urine Squamous Epithelial Cells RARE /HPF Urine Crystals NONE /LPF Urine Bacteria NEGATIVE /HPF Urine Casts PRESENT /LPF Urine Hyaline Casts RARE /LPF Urine Mucus MODERATE H /LPF Urine Culture Indicated NO (MIKE WELSH MD) Vital Signs/I&O 09/05/18 16:21 Temp 98.1 Pulse 97 Resp 18 B/P (MAP) 119/74 (89) Pulse Ox 96 O2 Delivery Room Air (MIKE WELSH MD) Vital Signs/I&O Capillary Refill : (VANDANA MINOR DO) Progress Note : Progress Note Patient is evaluated and examined immediately on arrival to his room. He has no acute distress. I could not reproduce his pain symptoms with palpation over the left rib cage or the chest but he was mildly tender over the left upper quadrant with no guarding or rebound signs. The pain is worse when he takes a deep breath. He has no respiratory complaints otherwise. Chest x-ray is ordered along with CT of abdomen and pelvis. Labs and urine. Patient is offered pain medications but he declines the need at this time. 17:50: ED Summary: Patient presented to the ER with point tenderness and pain along the left lower rib cage as well as the left upper quadrant. Chest x-ray was completed and revealing for COPD changes but no acute findings. Labs were also ordered and currently pending. CT scan of the abdomen and pelvis was also ordered and currently pending. Will transfer care to Dr. Welsh. Please follow up on CT scan and labs. Urinalysis was completed and negative. (VANDANA MINOR DO) Progress Note : Time: 18:57 Progress Note Symptoms largely resolved. Test results discussed with patient. Stable for discharge. Advised follow-up with primary care physician. Return here if worse or continuous pain. (MIKE WELSH MD) ECG Initial ECG Impression Date: Sep 05, 2018 Initial ECG Impression Time: 16:05 Initial ECG Rate: 99 Initial ECG Rhythm: Normal Sinus Initial ECG Intervals: Normal Initial ECG Impression: Normal (VANDANA MINOR DO) Diagnostic Imaging Diagonstic Imaging: Xray Plain Films/CT/US/NM/MRI: chest Comments Mild COPD changes. No acute findings (VANDANA MINOR DO) Departure Impression Primary Impression: Abdominal wall pain Disposition: 01 HOME, SELF-CARE Condition: Stable Departure-Patient Inst. Decision time for Depature: 18:59 (MIKE WELSH MD) Referrals: NO,LOCAL PHYSICIAN (PCP) Primary Care Physician Patient Instructions: Acute Abdomen (Belly Pain), Adult (DC) Add. Discharge Instructions: See her doctor next week for follow-up. Return if pain recurs or worsens or doesn't go away. All discharge instructions reviewed with patient and/or family. Voiced understanding. VANDANA MINOR DO Sep 05, 2018 16:26 MIKE WELSH MD Sep 05, 2018 19:00
[2018-09-05 16:31] LABS: BASOPHILS % (AUTO) 1 % (0-10); EOSINOPHILS % (AUTO) 1 % (0-10); LYMPHOCYTES % (AUTO) 29 % (12-44); MEAN PLATELET VOLUME 9.2 FL (7.4-10.4); MONOCYTES % (AUTO) 12 % (0-12); NEUTROPHILS # (AUTO) 4.9 X 10^3 (1.8-7.8); NEUTROPHILS % (AUTO) 57 % (42-75); PLATELET COUNT 279 10^3/uL (130-400)
[2018-09-05 16:32] LABS: BASOPHILS # (AUTO) 0.1 10^3/uL (0.0-0.1); EOSINOPHILS # (AUTO) 0.1 10^3/uL (0.0-0.3); LYMPHOCYTES # (AUTO) 2.5 X 10^3 (1.0-4.0)
--- NOTE | 2018-09-05 17:10 | Diagnostic Imaging Report ---
INDICATION: Chest pain and rib pain. EXAMINATION: PA and lateral views of the chest were obtained at 4:42 p.m. FINDINGS: Heart and mediastinal silhouette are normal in appearance. There is hyperinflation compatible with COPD. There is no focal infiltrate, pneumothorax or pleural fluid. IMPRESSION: Mild COPD changes with no acute process in the chest. Dictated by: Dictated on workstation # [id number]
[2018-09-05 17:12] LABS: CLARITY,URINE CLOUDY; COLOR,URINE DARK YELLOW
[2018-09-05 17:13] LABS: BILIRUBIN,URINE NEGATIVE (NEGATIVE); GLUCOSE, URINE (UA) NEGATIVE (NEGATIVE); KETONES,URINE NEGATIVE (NEGATIVE); NITRITE,URINE NEGATIVE (NEGATIVE); PROTEIN,URINE NEGATIVE (NEGATIVE)
[2018-09-05 17:14] LABS: LEUKOCYTE ESTERASE ,URINE NEGATIVE (NEGATIVE); UROBILINOGEN,URINE NORMAL (NORMAL)
[2018-09-05 17:25] LABS: RBC,URINE RARE /HPF
[2018-09-05 17:26] LABS: BACTERIA,URINE NEGATIVE /HPF; HYALINE CASTS, URINE RARE /LPF; SQUAMOUS EPITHELIAL CELL,UR RARE /HPF; WBC,URINE RARE /HPF
--- NOTE | 2018-09-05 17:45 | Diagnostic Imaging Report ---
PROCEDURE: CT abdomen without contrast. TECHNIQUE: Multiple contiguous axial images were obtained through the abdomen without the use of intravenous contrast. INDICATION: Left-sided anterior rib pain. COMPARISON: None available. FINDINGS: Lung bases are clear. No pericardial or pleural effusion. No free intraperitoneal air or fluid in the upper abdomen. Assessment of the abdominal viscera is mildly limited without IV contrast. Allowing for this, the liver, spleen, gallbladder, pancreas and adrenals are normal. No renal or proximal ureteral stones. Visualized bowel loops are normal in caliber. Normal appendix. No pericolonic inflammatory changes. No abdominal lymphadenopathy. Normal caliber abdominal aorta. No acute or healing fracture involving the visualized aspects of the bilateral lower ribs. IMPRESSION: 1. No acute or healing fracture involving the visualized aspects of the bilateral lower ribs. 2. No acute process in the abdomen by noncontrast CT. Dictated by: Dictated on workstation # [id number]
[2018-09-05 18:45] LABS: BUN/CREATININE RATIO 18; CARBON DIOXIDE 30 MMOL/L (21-32); CHLORIDE 100 MMOL/L (98-107); GFR ESTIMATED > 60; GLUCOSE 111 MG/DL (70-105); POTASSIUM 3.9 MMOL/L (3.6-5.0); SODIUM 138 MMOL/L (135-145)
[2018-09-05 18:46] LABS: ALANINE AMINOTRANSFERASE 29 U/L (0-55); ALKALINE PHOSPHATASE 74 U/L (40-136); BILIRUBIN,DIRECT 0.2 MG/DL (0.0-0.3); BILIRUBIN,INDIRECT 0.2 MG/DL; BILIRUBIN,TOTAL 0.4 MG/DL (0.1-1.0); CALCIUM 8.9 MG/DL (8.5-10.1)
[2018-09-05 18:47] LABS: ALBUMIN 4.4 GM/DL (3.2-4.5); TOTAL PROTEIN 7.4 GM/DL (6.4-8.2)
[2018-09-05 19:02] VITALS: BP 123/75
== END 2018-09-05 19:19 | disposition home or self-care (01) ==
LOC: ER FS 15:34
DX: R10.12 Left upper quadrant pain (principal); R07.81 Pleurodynia; E78.5 Hyperlipidemia, unspecified; F17.200 Nicotine dependence, unspecified, uncomplicated
CPT/HCPCS: 36415; 71046; 74150; 80048; 80076; 81000; 84484; 85025

== ENCOUNTER 2019-07-02 08:03 | Inpatient (IN) | payer MEDICARE ==
[~2019-07-02] VITALS: Ht 177.8 cm; Wt 90.5 kg
[2019-07-02] MEDS ORDERED: fentaNYL INJECTION 100 MCG/2 ML AMP IVP ONE (08:30)
--- NOTE | 2019-07-02 08:41 | ED Abdominal Pain ---
General Chief Complaint: Abdominal/GI Problems Stated Complaint: ABD PAIN Nursing Triage Note: Patient reports sudden onset of generalized abdominal cramping after having a loose stool at 0745 this morning. He denies any nausea or vomiting, states he has been having regular bowel movements. He also reports some heaviness in his chest since yesterday, states it is somewhat better this morning. He states he has a chronic cough that is slightly worse than usual. He states he ate out last night, had a few sips of an energy drink this morning. Sepsis Screen: No Definite Risk History of Present Illness Date Seen by Provider: Jul 02, 2019 Time Seen by Provider: 08:36 Initial Comments 53 yo male presents as described above describes diffuse intermittent crampy abdominal pain starting ~ 1 hour ago but also says he had crushing or pressure like pain over his chest yesterday, resolved now little loose stool no V no fever no cough, no known exposure to illness appears in some distress with abd cramping Allergies and Home Medications Allergies Coded Allergies: No Known Drug Allergies (Unverified , 09/05/18) Patient Home Medication List Home Medication List Reviewed: Yes Review of Systems Review of Systems Constitutional: No fever EENTM: No Symptoms Reported Respiratory: Cough Cardiovascular: Chest Pain; Denies Irregular Heart Rate, Denies Palpitations, Denies Syncope Gastrointestinal: Abdominal Pain, Diarrhea (mild); Denies Vomiting Genitourinary: No Symptoms Reported Musculoskeletal: no symptoms reported Skin: no symptoms reported Past Npkcnmc-Atlsyw-Zwgacz Hx Patient Social History Alcohol Use: Denies Use Recreational Drug Use: No Smoking Status: Current Everyday Smoker Type Used: Cigarettes 2nd Hand Smoke Exposure: No Recent Foreign Travel: No Contact w/Someone Who Travel: No Recent Infectious Disease Expo: No Recent Hopitalizations: No Physical Abuse: No Sexual Abuse: No Mistreated: No Fear: No Seasonal Allergies Seasonal Allergies: No Past Medical History Surgeries: Yes (Jaw surgery) Respiratory: Yes COPD Cardiac: Yes High Cholesterol Neurological: No Genitourinary: Yes (on flomax) Benign Prostatic Hyperpl Musculoskeletal: Yes (pseudo gout) Gout Endocrine: No HEENT: No Cancer: No Psychosocial: No Integumentary: No Blood Disorders: No Physical Exam Vital Signs Vital Signs - First Documented 07/02/19 08:05 Temp 37.0 Pulse 125 Resp 22 B/P (MAP) 127/79 (95) Pulse Ox 97 O2 Delivery Room Air Capillary Refill : Less Than 3 Seconds Height/Weight/BMI Height: 5'10.00" Weight: 205lbs. oz. 92.192517sp; 28.00 BMI Method:Stated General Appearance: mild distress HEENT: PERRL/EOMI, pharynx normal Neck: supple Respiratory: wheezing (mild diffuse exp wheezing) Cardiovascular: normal peripheral pulses, regular rate, rhythm, no edema Gastrointestinal: other (mild diffuse tenderness peristalitic rushes audible) Focused Exam Lactate Level 07/02/19 09:05: Lactic Acid Level 1.10 Lactic Acid Level Laboratory Tests Test 07/02/19 09:05 Lactic Acid Level 1.10 MMOL/L (0.50-2.00) Progress/Results/Core Measures Results/Orders Lab Results Laboratory Tests Test 07/02/19 08:25 07/02/19 09:05 07/02/19 10:45 Range/Units White Blood Count 18.1 H 4.3-11.0 10^3/uL Red Blood Count 4.71 4.35-5.85 10^6/uL Hemoglobin 14.5 13.3-17.7 G/DL Hematocrit 43 40-54 % Mean Corpuscular Volume 92 80-99 FL Mean Corpuscular Hemoglobin 31 25-34 PG Mean Corpuscular Hemoglobin Concent 34 32-36 G/DL Red Cell Distribution Width 14.6 H 10.0-14.5 % Platelet Count 348 130-400 10^3/uL Mean Platelet Volume 9.4 7.4-10.4 FL Neutrophils (%) (Auto) 66 42-75 % Lymphocytes (%) (Auto) 23 12-44 % Monocytes (%) (Auto) 10 0-12 % Eosinophils (%) (Auto) 1 0-10 % Basophils (%) (Auto) 0 0-10 % Neutrophils # (Auto) 11.8 H 1.8-7.8 X 10^3 Lymphocytes # (Auto) 4.2 H 1.0-4.0 X 10^3 Monocytes # (Auto) 1.8 H 0.0-1.0 X 10^3 Eosinophils # (Auto) 0.1 0.0-0.3 10^3/uL Basophils # (Auto) 0.1 0.0-0.1 10^3/uL Neutrophils % (Manual) 66 % Lymphocytes % (Manual) 24 % Monocytes % (Manual) 10 % Eosinophils % (Manual) 0 % Basophils % (Manual) 0 % Band Neutrophils 0 % Blood Morphology Comment NORMAL D-Dimer 0.37 0.00-0.49 UG/ML Sodium Level 137 135-145 MMOL/L Potassium Level 4.3 3.6-5.0 MMOL/L Chloride Level 99 98-107 MMOL/L Carbon Dioxide Level 21 21-32 MMOL/L Anion Gap 17 H 5-14 MMOL/L Blood Urea Nitrogen 16 7-18 MG/DL Creatinine 0.91 0.60-1.30 MG/DL Estimat Glomerular Filtration Rate > 60 BUN/Creatinine Ratio 18 Glucose Level 138 H 70-105 MG/DL Calcium Level 9.0 8.5-10.1 MG/DL Corrected Calcium 8.8 8.5-10.1 MG/DL Total Bilirubin 0.5 0.1-1.0 MG/DL Aspartate Amino Transf (AST/SGOT) 19 5-34 U/L Alanine Aminotransferase (ALT/SGPT) 18 0-55 U/L Alkaline Phosphatase 88 40-136 U/L Troponin I < 0.30 <0.30 NG/ML Total Protein 7.3 6.4-8.2 GM/DL Albumin 4.2 3.2-4.5 GM/DL Lipase 26 8-78 U/L Lactic Acid Level 1.10 0.50-2.00 MMOL/L Urine Color YELLOW Urine Clarity SL CLOUDY Urine pH 7.5 5-9 Urine Specific [place] <1.005 1.016-1.022 Urine Protein NEGATIVE NEGATIVE Urine Glucose (UA) NEGATIVE NEGATIVE Urine Ketones NEGATIVE NEGATIVE Urine Nitrite NEGATIVE NEGATIVE Urine Bilirubin NEGATIVE NEGATIVE Urine Urobilinogen 0.2 < = 1.0 MG/DL Urine Leukocyte Esterase NEGATIVE NEGATIVE Urine RBC (Auto) NEGATIVE NEGATIVE Urine RBC NONE /HPF Urine WBC NONE /HPF Urine Squamous Epithelial Cells 0-2 /HPF Urine Crystals NONE /LPF Urine Bacteria NONE /HPF Urine Casts NONE /LPF Urine Mucus NEGATIVE /LPF Urine Culture Indicated NO My Orders Orders - MAGALI ALEJANDRE MD Iv Heplock-Insert (Order) (07/02/19 08:29) Fentanyl Injection (Sublimaze Injection (07/02/19 08:30) Ekg Tracing (07/02/19 08:29) Cbc With Automated Diff (07/02/19 08:29) Comprehensive Metabolic Panel (07/02/19 08:29) Troponin I Fs (07/02/19 08:29) Lactic Acid Analyzer (07/02/19 08:45) Lipase (07/02/19 08:45) Urinalysis (07/02/19 08:45) Chest Pa/Lat (2 View) (07/02/19 08:45) Fibrin Degradation Products (07/02/19 08:47) Manual Differential (07/02/19 08:25) Ct Abd W Wo/Pelvis W (07/02/19 09:42) Iohexol Injection (Omnipaque 350 Mg/Ml 1 (07/02/19 10:15) Received Contrast (Hold Metformin- Contr (07/02/19 10:15) Sodium Chloride Flush (Catheter Flush Sy (07/02/19 10:15) Ns (Ivpb) (Sodium Chloride 0.9% Ivpb Bag (07/02/19 10:15) Troponin I Fs (07/02/19 11:30) Hs C Reactive Protein (07/02/19 11:30) Erythrocyte Sedimentation Rate (07/02/19 11:30) Protime With Inr (07/02/19 11:30) Partial Thromboplastin Time (07/02/19 11:30) Probnp Fs (07/02/19 11:30) Medications Given in ED Current Medications Medications Dose Ordered Sig/Cami Route Start Time Stop Time Status Last Admin Dose Admin Iohexol 100 ml ONCE ONCE IV 07/02/19 10:15 07/02/19 10:16 DC 07/02/19 10:27 100 ML Sodium Chloride 10 ml NEEDED PRN IV 07/02/19 10:15 07/02/19 10:27 10 ML Sodium Chloride 100 ml ONCE ONCE IV 07/02/19 10:15 07/02/19 10:16 DC 07/02/19 10:27 100 ML Vital Signs/I&O 07/02/19 08:05 Temp 37.0 Pulse 125 Resp 22 B/P (MAP) 127/79 (95) Pulse Ox 97 O2 Delivery Room Air Blood Pressure Mean: 95 Progress Progress Note : Progress Note CXR findings consistent with COPD nothing acute EKG sinus tach 106 no STEMI labs WBC 18,[address] abd reveals pericardial fluid nothing pathologic in abd discussed with hospitalist and cardio Dr. Villar adding sed rate CRP BNP repeat trop and pt to have echo on arrival at [facility] cardiac stepdown unit Comment EKG sinus tach @ [address] changes Departure Communication (Admissions) Time/Spoke to Admitting Phy: 11:40 see progress note Time/Spoke to Consulting Phy: 11:40 Impression Primary Impression: Leukocytosis Qualified Codes: D72.829 - Elevated white blood cell count, unspecified Additional Impression: Pericardial effusion Disposition: ADMITTED INPATIENT Condition: Improved Admissions Decision to Admit Reason: Admit from ER (General) Decision to Admit/Date: Jul 02, 2019 Time/Decision to Admit Time: 11:42 Departure-Patient Inst. Referrals: ARACELI JOHNSON MD (PCP/Family) Primary Care Physician MAGALI ALEJANDRE MD Jul 02, 2019 08:41
[2019-07-02 08:57] LABS: HEMOGLOBIN 14.5 G/DL (13.3-17.7); MEAN CORPUSCULAR HEMOGLOBIN 31 PG (25-34); WHITE BLOOD COUNT 18.1 10^3/uL (4.3-11.0)
[2019-07-02 08:58] LABS: BASOPHILS # (AUTO) 0.1 10^3/uL (0.0-0.1); BASOPHILS % (AUTO) 0 % (0-10); EOSINOPHILS # (AUTO) 0.1 10^3/uL (0.0-0.3); EOSINOPHILS % (AUTO) 1 % (0-10); HEMATOCRIT 43 % (40-54); LYMPHOCYTES # (AUTO) 4.2 X 10^3 (1.0-4.0); LYMPHOCYTES % (AUTO) 23 % (12-44); MEAN CORPUSCULAR HGB CONC 34 G/DL (32-36); MEAN CORPUSCULAR VOLUME 92 FL (80-99); MEAN PLATELET VOLUME 9.4 FL (7.4-10.4); MONOCYTES # (AUTO) 1.8 X 10^3 (0.0-1.0); MONOCYTES % (AUTO) 10 % (0-12); NEUTROPHILS # (AUTO) 11.8 X 10^3 (1.8-7.8); NEUTROPHILS % (AUTO) 66 % (42-75); PLATELET COUNT 348 10^3/uL (130-400); RED CELL DISTRIBUTION WIDTH 14.6 % (10.0-14.5)
[2019-07-02 09:16] LABS: POTASSIUM 4.3 MMOL/L (3.6-5.0); SODIUM 137 MMOL/L (135-145)
[2019-07-02 09:17] LABS: ALANINE AMINOTRANSFERASE 18 U/L (0-55); ALBUMIN 4.2 GM/DL (3.2-4.5); ALKALINE PHOSPHATASE 88 U/L (40-136); BILIRUBIN,TOTAL 0.5 MG/DL (0.1-1.0); BUN/CREATININE RATIO 18; CARBON DIOXIDE 21 MMOL/L (21-32); CHLORIDE 99 MMOL/L (98-107); CREATININE SERUM 0.91 MG/DL (0.60-1.30); GFR ESTIMATED > 60; GLUCOSE 138 MG/DL (70-105); LIPASE 26 U/L (8-78); TOTAL PROTEIN 7.3 GM/DL (6.4-8.2)
--- NOTE | 2019-07-02 09:18 | Diagnostic Imaging Report ---
INDICATION: Abdominal pain and cough and congestion. PA and lateral chest obtained at 0834 a.m. and compared to 09/05/2018. Heart and mediastinal silhouette are normal in appearance. The lungs are clear. There is no pneumothorax or pleural fluid. There is hyperinflation compatible with COPD. IMPRESSION: COPD changes with no acute process in the chest. Dictated by: Dictated on workstation # [id number]
[2019-07-02] MEDS ORDERED: NS 100 ML (IVPB) BAG IV ONE (10:15)
[2019-07-02] MEDS ORDERED: HOLD METFORMIN - RECEIVED CONTRAST 20 ML VIAL IV SCH (10:15)
[2019-07-02] MEDS ORDERED: CATHETER FLUSH 10 ML SYR IV PRN ×2 (10:15→14:15)
[2019-07-02] MEDS ORDERED: IOHEXOL 350 MG/ML 100 ML (OMNIPAQUE 350) VIAL IV ONE (10:15)
--- NOTE | 2019-07-02 10:55 | Diagnostic Imaging Report ---
PROCEDURE: CT of the abdomen with and without contrast and CT of the pelvis with contrast. TECHNIQUE: Precontrast acquisitions were acquired through the abdomen. Multiple contiguous axial images were obtained through the abdomen and pelvis after administration of intravenous contrast. Auto Exposure Controls were utilized during the CT exam to meet ALARA standards for radiation dose reduction. INDICATION: Left upper quadrant abdominal pain as well as elevated white blood cell count. Correlation is made with prior CT from 09/05/2018. Imaging through the lung bases does show some pericardial fluid, not present on prior CT. The lung bases are clear. The liver and gallbladder are unremarkable. No biliary ductal dilatation is seen. The pancreas and spleen are unremarkable. No adrenal mass is detected. The kidneys are without evidence of calculi or hydronephrosis. The aorta is non-aneurysmal. The small and large bowel loops appear to be normal caliber. There is diverticulosis of the sigmoid but no evidence of acute diverticulitis. The appendix is visualized in the right lower quadrant and unremarkable. No free fluid or fluid collection is identified. The bladder is unremarkable. Prostate is normal in size. No abdominal or pelvic lymphadenopathy is seen. IMPRESSION: 1. Small pericardial effusion, new since CT from August 2018. 2. No acute feature in the abdomen or pelvis is identified. Dictated by: Dictated on workstation # [id number]
[2019-07-02 11:04] LABS: COLOR,URINE YELLOW
[2019-07-02 11:05] LABS: BILIRUBIN,URINE NEGATIVE (NEGATIVE); CLARITY,URINE SL CLOUDY; GLUCOSE, URINE (UA) NEGATIVE (NEGATIVE); KETONES,URINE NEGATIVE (NEGATIVE); LEUKOCYTE ESTERASE ,URINE NEGATIVE (NEGATIVE); NITRITE,URINE NEGATIVE (NEGATIVE); PH,URINE 7.5 (5-9); PROTEIN,URINE NEGATIVE (NEGATIVE); SQUAMOUS EPITHELIAL CELL,UR 0-2 /HPF
[2019-07-02 11:18] LABS: BAND NEUTROPHILS 0 %; BASOPHILS % (MANUAL) 0 %; EOSINOPHILS % (MANUAL) 0 %; LYMPHOCYTES % (MANUAL) 24 %; MONOCYTES % (MANUAL) 10 %; NEUTROPHILS % (MANUAL) 66 %; RBC MORPH NORMAL
[2019-07-02] MEDS ORDERED: RT-ALBUTEROL/IPRATROPIUM 3 ML (DUONEB) VIAL INH ONE (12:00)
[2019-07-02 13:45] VITALS: BP 121/75
[2019-07-02] MEDS ORDERED: CATHETER FLUSH 10 ML SYR IV SCH (14:15)
[2019-07-02] MEDS ORDERED: D-ME236L5 PO (14:58)
[2019-07-02] MEDS ORDERED: MULT1TAB69 PO (14:58)
[2019-07-02] MEDS ORDERED: ALLO100T PO (14:58)
[2019-07-02] MEDS ORDERED: TAMS0.4C98 PO (14:58)
[2019-07-02] MEDS ORDERED: BUDE10.2 IH (14:58)
[2019-07-02] MEDS ORDERED: RT-ALBUINH IH (14:58)
[2019-07-02] MEDS ORDERED: ATOR20TA49 PO (14:58)
[2019-07-02] MEDS ORDERED: SAW/1TAB2 PO (14:58)
[2019-07-02] MEDS ORDERED: DEXT30SU5 PO (14:58)
[2019-07-02] MEDS ORDERED: MAGN400T39 PO (14:58)
[2019-07-02] MEDS ORDERED: SILD100T PO (14:58)
[2019-07-02] MEDS ORDERED: NAPR220T66 PO (14:58)
--- NOTE | 2019-07-02 15:03 | History & Physical-Hospitalist ---
[facility] 07/02/19 1503: History of Present Illness HPI/Chief Complaint cc: upper abdominal cramping and chest pain Patient reported to emergency department with abdominal cramping after a loose stool this morning. Patient reports that for the last three days he has been coughing and has productive sputum and has felt like "he was getting a cold". He said he had a heavy feeling in his chest and crushing pressure that although has improved, he is still feeling it. Pain in abdomen feels crampy and chest pain feels like a dull constant pressure that worsens with inspiration. Nothing makes it worse and waiting and walking off the pain feels better. Pain at this time is 2/10, but he describes pain as 10/10 at its worse. Pain is non-radiating and constant. During my assessment, the patient repositioned himself and experienced intense pain that he rated 6/10 on the lower left part of his chest. Palpation of his chest during the pain revealed right, rigid and solid musculature. Patient denies fever, chills, n/v, weight loss, chest trauma, radiation exposure, dysuria or hematuria. Admits to SOB attributed to his COPD and fatigue. Source: patient Exam Limitations: no limitations Date Seen 07/02/19 Time Seen by a Provider: 14:42 Attending Physician Colette Whelan Pankaj K MD Referring Physician Date of Admission Jul 02, 2019 at 12:00 Home Medications & Allergies Home Medications Reviewed patient Home Medication Reconciliation performed by pharmacy medication reconciliations industrial maintenance technician and/or nursing. Patients Allergies have been reviewed. Allergies Allergies Coded Allergies No Known Drug Allergies (Unverified09/05/18) No allergies reported. Past Arvswij-Tzjope-Joukkd Hx Past Med/Social Hx: Reviewed Nursing Past Med/Soc Hx Patient Social History Marrital Status: Number of living children: 3 Employed/Student: employed Alcohol Use: Denies Use Recreational Drug Use: No Smoking Status: Current Everyday Smoker Cigaretts per day: 20 Type Used: Cigarettes 2nd Hand Smoke Exposure: No Physical Abuse Screen: No Sexual Abuse: No Recent Foreign Travel: No Contact w/other who traveled: No Recent Hopitalizations: No Recent Infectious Disease Expo: No Social History Patient smokes 1 pack per day for over 30 years. Denies alcohol and recreational use. Drinks over 6 cups of coffee every day. Is and employed. Exposure to fuel and fumes at work but no other environmental exposures were identified. with children. Immunizations Up To Date Tetanus Booster (TDap): Unknown Pediatric: No Date of Pneumonia Vaccine: May 02, 2020 Seasonal Allergies Seasonal Allergies: No Past Medical History Wrist surgery, jaw wired shut. Respiratory: COPD Currently Using CPAP: No Currently Using BIPAP: No Cardiac: High Cholesterol Reproductive: No Genitourinary: Prostate Problems Musculoskeletal: Gout Loss of Vision: Denies Hearing Impairment: Denies History of Blood Disorders: No Family History Arthritis 19 MOTHER Cardiovascular disease 19 MOTHER Psychosocial problem 19 MOTHER Respiratory disorder 19 FATHER 19 MOTHER Heart Disease Review of Systems Constitutional: no symptoms reported EENTM: see HPI Respiratory: cough, phlegm, short of breath Cardiovascular: chest pain Gastrointestinal: abdominal pain (LUQ) Genitourinary: hesitancy Musculoskeletal: gout (no flare ups) Skin: no symptoms reported Psychiatric/Neurological: No Symptoms Reported Physical Exam Physical Exam Vital Signs Vital Signs - First Documented 07/02/19 08:05 Temp 37.0 Pulse 125 Resp 22 B/P (MAP) 127/79 (95) Pulse Ox 97 O2 Delivery Room Air Capillary Refill : Less Than 3 SecondsLess Than 3 Seconds Height, Weight, BMI Height: 5'10.00" Weight: 205lbs. oz. 92.555827ch; 28.75 BMI Method:Stated General Appearance: No Apparent Distress, WD/WN (patient is sitting comfortably, talkative, friendly, appears well) HEENT: PERRL/EOMI Neck: Normal Inspection, Non Tender, Supple Respiratory: No Respiratory Distress, Wheezing Cardiovascular: No Edema, Normal Peripheral Pulses, Tachycardia (assessed on raidal pulse), Other (heart sounds were difficult to hear. Could not characterize) Gastrointestinal: No Pulsatile Mass, Non Tender, Soft Rectal: Deferred Back: Normal Inspection, No CVA Tenderness Extremity: Normal Inspection, Normal Range of Motion, Non Tender Neurologic/Psychiatric: Alert, Oriented x3, No Motor/Sensory Deficits, Normal Mood/Affect Skin: Normal Color, Warm/Dry Lymphatic: No Adenopathy Results Results/Procedures Labs Laboratory Tests 07/02/19 08:25 Patient resulted labs reviewed. Assessment/Plan Admission Diagnosis pericardial effusion leukocytosis Admission Status: Inpatient Order (span 2 midnights) Assessment and Plan Pericardial effusion - chest CT to r/o chest malignancy - Echo to quantify effusion and assess heart function - Troponin levels to r/o [place] - possible infectious etiology Chest pain - EKG obtained: there was no STEMI. Sinus tach was present. Leukocytosis COPD 3 day Hx of Cough and productive sputum Smoker, 30+ pack history -smoking cessation Hx of Gout - under control Abdominal pain - CT found no abdominal abnormalities, no acute abdomen. Chest pain Clinical Quality Measures DVT/VTE Risk/Contraindication: Risk Factor Score Per Nursin RFS Level Per Nursing on Admit: 3=High COLETTE WHELAN DO 07/02/192058: History of Present Illness HPI/Chief Complaint HPI: This is a 52yoWM disabled individual of Dr. Woodard who has a history of COPD who presents with abdominal pain after some loose stools, became worse so went to the ER, workup included white count of 18,000, CT of the abdomen actually showed pericardial effusion so cardiology was consulted. We will admit him, pericardial effusion workup will ensue and Pt will be monitored closely on cardiac stepdown unit. Past Lasohgf-Ynktcu-Rsbdik Hx Past Med/Social Hx: Reviewed Nursing Past Med/Soc Hx, Reviewed and Corrections made Patient Social History Marrital Status: Employed/Student: employed ([employer] disabled from [facility] [employer] after 14 yrs) Alcohol Use: Denies Use Smoking Status: Current Everyday Smoker Past Medical History Respiratory: COPD Family History Arthritis 19 MOTHER Cardiovascular disease 19 MOTHER Psychosocial problem 19 MOTHER Respiratory disorder 19 FATHER 19 MOTHER Review of Systems Constitutional: see HPI Respiratory: cough, dyspnea on exertion Cardiovascular: chest pain Physical Exam Physical Exam General Appearance: No Apparent Distress, Chronically ill Respiratory: No Accessory Muscle Use, No Respiratory Distress, Decreased Breath Sounds Cardiovascular: Regular Rate, Rhythm Neurologic/Psychiatric: Alert, Oriented x3, No Motor/Sensory Deficits, Normal Mood/Affect Assessment/Plan Admission Diagnosis Assessment: Pericardial effusion Leukocytosis Wheezing Smoker Cough Plan: Cardiology evaluation [facility] Home meds Admission Status: Inpatient Order (span 2 midnights) Reason for Inpatient Admission: pericardial effusion with elevated wbc Diagnosis/Problems Diagnosis/Problems (1) COPD (chronic obstructive pulmonary disease) (2) Wheezing (3) Smoker (4) Pericardial effusion Status: Acute (5) Leukocytosis Status: Acute Qualifiers: Leukocytosis type: unspecified Qualified Codes: D72.829 - Elevated white blood cell count, unspecified Supervisory-Addendum Brief Verification & Attestation Participated in pt care: history, MDM, physical Personally performed: exam, history, MDM, supervision of care Care discussed with: Medical Student Procedures: n/a Results interpretation: Verified all documentation Verification and Attestation of Medical Student E/M Service A medical student performed and documented this service in my presence. I reviewed and verified all information documented by the medical student and made modifications to such information, when appropriate. I personally performed the physical exam and medical decision making. Colette Whelan, Jul 02, 2019,20:58 [facility] Jul 02, 2019 15:03 COLETTE WHELAN DO Jul 02, 2019 20:59
--- NOTE | 2019-07-02 15:11 | NUR ---
PATIENT HAD A MEDICATION LIST ON HIS PHONE FROM DR. MART BULL. I CALLED [facility] IN [place] TO VERIFY LAST FILL DATES. [facility] [place] FILLED: 05-19-19 LIPITOR 20MG DAILY #30 05-19-19 ALLOPURINOL 100MG DAILY #30 05-19-19 FLOMAX 0.4MG DAILY #30 05-18-19 SYMBICORT 160 2 PUFFS BID 05-18-19 PROAIR 2 PUFFS Q4H PRN #1 HIS LIST ALSO STATES VIAGRA 100MG DAILY PRN, [facility] DID NOT HAVE THIS ON FILE FOR HIM. I LEFT IT ON MED REC PRN. OTC MEDS INCLUDE: MAGNESIUM DAILY MTV DAILY ALEVE 2 PRN PROSTATE HEALTH DAILY DELSYM PRN NYQUIL PRN HS
--- NOTE | 2019-07-02 15:20 | Consultation-Cardiology ---
HPI-Cardiology Cardiology Consultation: Date of Consultation 07/02/19 Date of Admission Attending Physician Colette Whelan DO Admitting Physician Carlin Woodard MD Consulting Physician Venita CASTAÑEDA MD HPI: Time Seen by a Provider: 15:20 Chief Complaint: Chest pain, abdominal pain. This is a 53-year-old gentleman who has history of active smoking. He presented with intermittent cramping abdominal pain. He was having chest discomfort with inspiration for the last few days. He is also having cough with productive sputum in the last few days. He denies any premature family history of CAD. In [place] ER CT abdomen was done which showed possibility of pericardial effusion. He was also found to have leukocytosis. Therefore was transferred to [facility] for further management. The patient denies any syncope, near-syncope, palpitations, lower extremity swelling. Review of Systems-Cardiology Review of Systems Constitutional: As described under HPI; No As described under HPI, No no symptoms reported, No chills, No fever, No lightheadedness Eyes: No As described under HPI, No no symptoms reported, No blindness, No blurred vision, No contact lenses, No drainage, No decreased acuity, No foreign body sensation, No pain, No vision change Ears/Nose/Throat: No As described under HPI, No no symptoms reported, No chronic hearing loss, No ear discharge, No ear pain, No nasal drainage, No ulcerations Respiratory: No no symptoms reported; As described under HPI; No As described under HPI, No cough, No orthopnea, No shortness of breath, No SOB with excertion Cardiovascular: No no symptoms reported; As described under HPI; No As described under HPI; chest pain; No edema, No irregular heart rate, No lighthead edness, No palpitations Gastrointestinal: No no symptoms reported, No As described under HPI, No abdomen distended; abdominal pain; No blood streaked bowels, No constipation, No diarrhea, No nausea, No vomiting, No stool coloration changes Genitourinary: No As described under HPI, No burning, No dysuria, No discharge, No frequency, No flank pain, No hematuria, No urgency Skin: No rash, No skin related problems, No ulcerations Psychiatric/Neurological: No anxiety, No depression, No seizure, No focal weakness, No syncope Hematologic: No bleeding abnormalities SWS-Wiuqfr-Bbubxi Hx Patient Social History Alcohol Use: Past History Recreational Drug Use: No Smoking Status: Current Everyday Smoker Type Used: Cigarettes 2nd Hand Smoke Exposure: No Recent Foreign Travel: No Recent Infectious Disease Expo: No Hospitalization with Isolation: Denies Physical Abuse Screen: No Sexual Abuse: No Immunizations Up To Date Date of Pneumonia Vaccine: May 02, 2020 Past Medical History PMH As described under Assessment. Family Medical History Family History: Arthritis 19 MOTHER Cardiovascular disease 19 MOTHER Psychosocial problem 19 MOTHER Respiratory disorder 19 FATHER 19 MOTHER Allergies and Home Medications Allergies Coded Allergies: No Known Drug Allergies (Unverified , 09/05/18) Home Medications Albuterol Sulfate 1 Puff Puff, 2 PUFF IH Q4H PRN for SHORTNESS OF BREATH, (Reported) 1 PUFF = 90 MCG Allopurinol 100 Mg Tablet, 100 MG PO DAILY, (Reported) LAST FILLED #30 05-19-19 Atorvastatin Calcium 20 Mg Tablet, 20 MG PO DAILY, (Reported) LAST FILLED #30 05-19-19 Budesonide/Formoterol Fumarate 10.2 Gm Hfa.aer.ad, 2 PUFF IH BID, (Reported) LAST FILLED #1 05-18-19 D-Methorphan/Acetamin/Doxylamn 236 Ml Liquid, 30 ML PO Q6H PRN for COUGH, (Reported) Dextromethorphan Polistirex 30 Mg/5 Ml Siria.er.12h, 10 ML PO Q12H PRN for COUGH, (Reported) Magnesium Oxide 400 Mg Tablet, 400 MG PO DAILY, (Reported) Multivitamin 1 Each Tablet, 1 TAB PO DAILY, (Reported) Naproxen Sodium 220 Mg Tablet, 440 MG PO Q8H PRN for PAIN-MILD (1-4), (Reported) Saw/Vit E/Sod Cinthia/Lyc/Beta/Pyg 1 Each Tablet, 1 TAB PO DAILY, (Reported) Sildenafil Citrate 100 Mg Tablet, 100 MG PO DAILY PRN for ED, (Reported) Tamsulosin HCl 0.4 Mg Cap, 0.4 MG PO DAILY, (Reported) LAST FILLED #30 05-19-19 Patient Home Medication List Home Medication List Reviewed: Yes Physical Exam-Cardiology Physical Exam Vital Signs/I&O 07/02/19 07/02/19 07/02/19 07/02/19 08:05 12:20 13:45 15:58 Temp 37.0 37.1 37.5 Pulse 125 109 105 108 Resp 22 21 20 B/P (MAP) 127/79 (95) 124/76 121/75 Pulse Ox 97 94 92 O2 Delivery Room Air Room Air Room Air Capillary Refill : Less Than 3 SecondsLess Than 3 Seconds Constitutional: appears stated age, AAO x 3; No apparent distress; well- developed, well-nourished HEENT: PERRL; No discharge; hearing is well preserved, oral hygience is good; No ulceration, No xanthelasmas are seen Neck: No carotid bruit; carotid pulses are 2 + bilaterally Respiratory: No accessory muscle use, No respiratory distress, No chest tender, No chest expansion is symmetric; chest is bilaterally symmetric; No lungs clear to percussion; lungs clear to auscultation; No crackles, No rhonchi, No rales, No stridor, No wheezing, No pleural rub, No other Cardiovascular: regular rate-rhythm; No irregularly irregular, No extra beats, No parasternal heave is noted, No JVD, No edema, No bradycardia, No tachycardia, No point of maximal impulse, No cardiac thrills are palpable; S1 and S2; No gallop/S3, No gallop/S4, No diastolic murmur, No systolic murmur, No friction rub, No click, No other Gastrointestinal: soft, round, audible bowel sounds; No spleenomegaly Rectal: deferred Extremities: normal range of motion, non-tender, normal inspection; No cl ubbing, No cyanosis; no lower extremity edema bilateral; No significant edema Neurologic/Psychiatric: no motor/sensory deficits, alert, normal mood/affect, oriented x 3, power is 5/5 both on sides Skin: normal color, warm/dry; No rash, No ulcerations Data Review Labs Laboratory Tests 07/02/19 08:25: White Blood Count 18.1H, Red Blood Count 4.71, Hemoglobin 14.5, Hematocrit 43, Mean Corpuscular Volume 92, Mean Corpuscular Hemoglobin 31, Mean Corpuscular Hemoglobin Concent 34, Red Cell Distribution Width 14.6H, Platelet Count 348, Mean Platelet Volume 9.4, Neutrophils (%) (Auto) 66, Lymphocytes (%) (Auto) 23, Monocytes (%) (Auto) 10, Eosinophils (%) (Auto) 1, Basophils (%) (Auto) 0, Neutrophils # (Auto) 11.8H, Lymphocytes # (Auto) 4.2H, Monocytes # (Auto) 1.8H, Eosinophils # (Auto) 0.1, Basophils # (Auto) 0.1, Neutrophils % (Manual) 66, Lymphocytes % (Manual) 24, Monocytes % (Manual) 10, Eosinophils % (Manual) 0, Basophils % (Manual) 0, Band Neutrophils 0, Blood Morphology Comment NORMAL, Erythrocyte Sedimentation Rate 28, Prothrombin Time 13.0, INR Comment 1.0, Activated Partial Thromboplast Time 34, D-Dimer 0.37, Sodium Level 137, Potassium Level 4.3, Chloride Level 99, Carbon Dioxide Level 21, Anion Gap 17H, Blood Urea Nitrogen 16, Creatinine 0.91, Estimat Glomerular Filtration Rate > 60, BUN/Creatinine Ratio 18, Glucose Level 138H, Calcium Level 9.0, Corrected Calcium 8.8, Total Bilirubin 0.5, Aspartate Amino Transf (AST/SGOT) 19, Alanine Aminotransferase (ALT/SGPT) 18, Alkaline Phosphatase 88, Troponin I < 0.30, C- Reactive Protein 9.58H, Pro-B-Type Natriuretic Peptide 123.3H, Total Protein 7.3, Albumin 4.2, Lipase 26 07/02/19 09:05: Lactic Acid Level 1.10 07/02/19 10:45: Urine Color YELLOW, Urine Clarity SL CLOUDY, Urine pH 7.5, Urine Specific [place] <1.005, Urine Protein NEGATIVE, Urine Glucose (UA) NEGATIVE, Urine Ketones NEGATIVE, Urine Nitrite NEGATIVE, Urine Bilirubin NEGATIVE, Urine Urobilinogen 0.2, Urine Leukocyte Esterase NEGATIVE, Urine RBC (Auto) NEGATIVE, Urine RBC NONE, Urine WBC NONE, Urine Squamous Epithelial Cells 0-2, Urine Crystals NONE, Urine Bacteria NONE, Urine Casts NONE, Urine Mucus NEGATIVE, Urine Culture Indicated NO ECG Impression ECG Initial ECG Rhythm: Normal Sinus Initial ECG Impression: Normal A/P-Cardiology Assessment/Admission Diagnosis Chest pain, Leukocytosis, Bronchitis pericardial effusion, Acute pericarditis, Active smoking Plan Chest pain, serial troponin negative. EKG does not have any acute ST-T wave abnormalities. Nuclear stress test tomorrow. Leukocytosis, defer to the primary team. Bronchitis pericardial effusion, echocardiogram done 07/02/2019 showed normal LV function. Trivial pericardial effusion with no tamponade physiology. Acute pericarditis, chest pain likely pericarditis. Increased on inspiration. I will give a dose of ibuprofen 400 mg 1 and see the response. Acute smoking, smoking cessation was strongly recommended. Thank you for your consultation. Please call me if you have any questions. Eros Castañeda MD, FACP, FACC, FSCAI, FHRS, CCDS Interventional Cardiology Cardiac Electrophysiology Vascular Medicine and Endovascular Interventions Clinical Quality Measures DVT/VTE Risk/Contraindication: Risk Factor Score Per Nursin RFS Level Per Nursing on Admit: 3=High Venita CASTAÑEDA MD Jul 02, 2019 15:20
[2019-07-02] MEDS ORDERED: IBUPROFEN TABLET 200 MG TAB PO ONE (15:45)
[2019-07-02 16:00] VITALS: BP 126/73
[2019-07-02] MEDS ORDERED: REGADENOSON 0.4 MG/5 ML SYR (LEXISCAN) IV ONE (16:45)
[2019-07-02 20:29] VITALS: BP 107/79
[2019-07-02] MEDS: RT-ALBUTEROL SULF 2.5 MG/3 ML PRE-MIX VIAL INH SCH (20:39)
[2019-07-02] MEDS ORDERED: NON-FORMULARY MEDICATION 1 EA EA (Naproxen Sodium (Aleve) 440 MG) PO PRN (21:00)
[2019-07-02] MEDS ORDERED: DEXTROMETHORPHAN POLISTIREX PO PRN (21:00)
[2019-07-02] MEDS ORDERED: NON-FORMULARY MEDICATION 1 EA EA (Budesonide/Formoterol Fumarate (Symbicort 160-4.5 Mcg In IH SCH (21:00)
[2019-07-02] MEDS ORDERED: ACETAMINOPHEN 500 MG TAB (TYLENOL) PO PRN (21:15)
[2019-07-02] MEDS ORDERED: ONDANSETRON 4 MG/2 ML (SDV) Z0FRAN IVP PRN (21:15)
[2019-07-02] MEDS ORDERED: HYDROcodone/APAP 5 MG/325 MG (LORTAB) TAB PO PRN (21:15)
[2019-07-02] MEDS ORDERED: MELATONIN 3 MG TABLET PO PRN (21:15)
[2019-07-02] MEDS ORDERED: ENOXAPARIN 40 MG/0.4 ML (LOVENOX) SYR SC SCH (21:15)
[2019-07-02] MEDS ORDERED: CALCIUM CARBONATE 500 MG (TUMS) TAB.CHEW PO PRN (21:15)
[2019-07-02] MEDS ORDERED: ALPRAZolam 0.25 MG (XANAX) TAB PO PRN (21:15)
[2019-07-02] MEDS ORDERED: LOPERAMIDE 2 MG (IMODIUM) TABLET PO PRN (21:15)
[2019-07-02] MEDS ORDERED: DOCUSATE SODIUM 100 MG (COLACE) CAP PO PRN (21:15)
[2019-07-02] MEDS ORDERED: diphenhydrAMINE 25 MG TAB (BENADRYL) PO PRN (21:15)
[2019-07-02] MEDS: CATHETER FLUSH 10 ML SYR IV SCH (21:59)
[2019-07-03 00:11] VITALS: BP 118/73
[2019-07-03] MEDS: RT-ALBUTEROL SULF 2.5 MG/3 ML PRE-MIX VIAL INH SCH (02:15)
[2019-07-03 04:30] VITALS: BP 122/78
[2019-07-03 04:55] LABS: BASOPHILS # (AUTO) 0.1 10^3/uL (0.0-0.1); BASOPHILS % (AUTO) 0 % (0-10); EOSINOPHILS # (AUTO) 0.3 10^3/uL (0.0-0.3); EOSINOPHILS % (AUTO) 2 % (0-10); HEMATOCRIT 42 % (40-54); HEMOGLOBIN 14.1 G/DL (13.3-17.7); LYMPHOCYTES # (AUTO) 3.7 X 10^3 (1.0-4.0); LYMPHOCYTES % (AUTO) 23 % (12-44); MEAN CORPUSCULAR HEMOGLOBIN 31 PG (25-34); MEAN CORPUSCULAR HGB CONC 33 G/DL (32-36); MEAN CORPUSCULAR VOLUME 92 FL (80-99); MEAN PLATELET VOLUME 9.4 FL (7.4-10.4); MONOCYTES # (AUTO) 1.6 X 10^3 (0.0-1.0); MONOCYTES % (AUTO) 10 % (0-12); NEUTROPHILS # (AUTO) 10.5 X 10^3 (1.8-7.8); NEUTROPHILS % (AUTO) 65 % (42-75); PLATELET COUNT 291 10^3/uL (130-400); RED CELL DISTRIBUTION WIDTH 14.9 % (10.0-14.5); WHITE BLOOD COUNT 16.1 10^3/uL (4.3-11.0)
[2019-07-03 05:15] LABS: ALANINE AMINOTRANSFERASE 20 U/L (0-55); ALBUMIN 3.9 GM/DL (3.2-4.5); ALKALINE PHOSPHATASE 81 U/L (40-136); BILIRUBIN,TOTAL 0.5 MG/DL (0.1-1.0); BUN/CREATININE RATIO 22; CALCIUM 8.7 MG/DL (8.5-10.1); CARBON DIOXIDE 21 MMOL/L (21-32); CHLORIDE 106 MMOL/L (98-107); CREATININE SERUM 0.85 MG/DL (0.60-1.30); GFR ESTIMATED > 60; GLUCOSE 119 MG/DL (70-105); POTASSIUM 4.2 MMOL/L (3.6-5.0); SODIUM 138 MMOL/L (135-145); TOTAL PROTEIN 6.8 GM/DL (6.4-8.2)
[2019-07-03] MEDS: CATHETER FLUSH 10 ML SYR IV SCH (06:04)
[2019-07-03] MEDS ORDERED: NAPROXEN 250 MG (NAPROSYN) TABLET PO PRN (07:30)
[2019-07-03 07:38] VITALS: BP 124/67
[2019-07-03] MEDS ORDERED: MAGNESIUM OXIDE (MAG-OX)400 MG TAB PO SCH (08:00)
[2019-07-03] MEDS ORDERED: RT-ADVAIR HFA 115/21 MCG PER PUFF IH SCH (08:00)
[2019-07-03] MEDS ORDERED: MULTIVIT W/MINERALS TAB (THERAGRAN M) PO SCH (09:00)
[2019-07-03] MEDS ORDERED: TAMSULOSIN 0.4 MG (FLOMAX) CAP PO SCH (09:00)
[2019-07-03] MEDS ORDERED: SENNA W/DOCUSATE (SENOKOT S) TABLET PO SCH (09:00)
[2019-07-03] MEDS ORDERED: NON-FORMULARY MEDICATION 1 EA EA (Magnesium Oxide (Magnesium) 400 MG) PO SCH (09:00)
[2019-07-03] MEDS ORDERED: ALLOPURINOL 100 MG (ZYLOPRIM) TAB PO SCH (09:00)
[2019-07-03] MEDS ORDERED: REGADENOSON 0.4 MG/5 ML SYR (LEXISCAN) IV ONE (09:05)
--- NOTE | 2019-07-03 11:36 | NUR ---
patient returned to floor from stress test
--- NOTE | 2019-07-03 12:02 | Discharge Summary ---
Discharge Summary Hospital Course Was the Problem List Reviewed?: Yes Problems/Dx: (1) COPD (chronic obstructive pulmonary disease) (2) Wheezing (3) Smoker (4) Pericardial effusion Status: Acute (5) Leukocytosis Status: Acute Qualifiers: Qualified Codes: D72.829 - Elevated white blood cell count, unspecified Hospital Course Date of Admission: Jul 02, 2019 at 12:00 Admission Diagnosis : Family Physician/Provider: Carlin Woodard MD Date of Discharge: 07/03/19 Discharge Diagnosis: Chest pain, elevated wbc of uncertain significance, COPD, small pericardial effusion Hospital Course: Patient had a short observation course after admitted for non-specific chest pain and elevated wbc and CT scan revealed pericardial effusion that was later assessed to be minute amount on ECHO but he underwent Lexiscan with no significant reversible ischemia so he was DC in improved condition. Labs and Pending Lab Test: Laboratory Tests 07/03/19 04:47: White Blood Count 16.1H, Red Blood Count 4.61, Hemoglobin 14.1, Hematocrit 42, Mean Corpuscular Volume 92, Mean Corpuscular Hemoglobin 31, Mean Corpuscular Hemoglobin Concent 33, Red Cell Distribution Width 14.9H, Platelet Count 291, Mean Platelet Volume 9.4, Neutrophils (%) (Auto) 65, Lymphocytes (%) (Auto) 23, Monocytes (%) (Auto) 10, Eosinophils (%) (Auto) 2, Basophils (%) (Auto) 0, Neutrophils # (Auto) 10.5H, Lymphocytes # (Auto) 3.7, Monocytes # (Auto) 1.6H, Eosinophils # (Auto) 0.3, Basophils # (Auto) 0.1, Sodium Level 138, Potassium Level 4.2, Chloride Level 106, Carbon Dioxide Level 21, Anion Gap 11, Blood Urea Nitrogen 19H, Creatinine 0.85, Estimat Glomerular Filtration Rate > 60, BUN/Creatinine Ratio 22, Glucose Level 119H, Calcium Level 8.7, Corrected Calcium 8.8, Total Bilirubin 0.5, Aspartate Amino Transf (AST/SGOT) 17, Alanine Aminotransferase (ALT/SGPT) 20, Alkaline Phosphatase 81, Total Protein 6.8, Albumin 3.9 Home Meds Active Reported Symbicort 160-4.5 Mcg Inhaler (Budesonide/Formoterol Fumarate) 10.2 Gm Hfa.aer.ad 2 Puff IH BID LAST FILLED #1 11-18-19 Flomax (Tamsulosin HCl) 0.4 Mg Cap 0.4 Mg PO DAILY LAST FILLED #30 05-19-19 Allopurinol 100 Mg Tablet 100 Mg PO DAILY LAST FILLED #30 05-19-19 Proair Hfa (Albuterol Sulfate) 1 Puff Puff 2 Puff IH Q4H PRN 1 PUFF = 90 MCG Viagra (Sildenafil Citrate) 100 Mg Tablet 100 Mg PO DAILY PRN Lipitor (Atorvastatin Calcium) 20 Mg Tablet 20 Mg PO DAILY LAST FILLED #30 05-19-19 Vicks Nyquil Cold & Flu Liquid (D-Methorphan/Acetamin/Doxylamn) 236 Ml Liquid 30 Ml PO Q6H PRN Delsym (Dextromethorphan Polistirex) 30 Mg/5 Ml Siria.er.12h 10 Ml PO Q12H PRN Prostate Health Caplet (Saw/Vit E/Sod Cinthia/Lyc/Beta/Pyg) 1 Each Tablet 1 Tab PO DAILY Aleve (Naproxen Sodium) 220 Mg Tablet 440 Mg PO Q8H PRN Multivitamins (Multivitamin) 1 Each Tablet 1 Tab PO DAILY Magnesium (Magnesium Oxide) 400 Mg Tablet 400 Mg PO DAILY Assessment/Pt Instructions [facility] 1 week to evaluate elevated wbc Discharge Planning: <30 minutes discharge planning Discharge Instructions Discharge Diet: No Restrictions Discharge Physical Examination Vital Signs Vital Signs Date Time Temp Pulse Resp B/P (MAP) Pulse Ox O2 Delivery O2 Flow Rate FiO2 07/03/19 08:00 Room Air 07/03/19 07:38 37.5 111 20 124/67 (86) 92 General Appearance: No Apparent Distress, WD/WN Respiratory: Lungs Clear Cardiovascular: Regular Rate, Rhythm Neurologic/Psychiatric: Alert, Oriented x3, No Motor/Sensory Deficits, Normal Mood/Affect Allergies: Coded Allergies: No Known Drug Allergies (Unverified , 09/05/18) Discharge Summary Date of Admission Jul 02, 2019 at 12:00 Date of Discharge Discharge Date: Jul 03, 2019 Admission Diagnosis Assessment: Pericardial effusion Leukocytosis Wheezing Smoker Cough Plan: Cardiology evaluation [facility] Discharge Diagnosis (1) COPD (chronic obstructive pulmonary disease) (2) Wheezing (3) Smoker (4) Pericardial effusion Status: Acute (5) Leukocytosis Status: Acute Qualifiers: Qualified Codes: D72.829 - Elevated white blood cell count, unspecified Clinical Quality Measures DVT/VTE Risk/Contraindication: Risk Factor Score Per Nursin RFS Level Per Nursing on Admit: 3=High TAVON NICHOLSON DO Jul 03, 2019 12:02
[2019-07-03 12:14] VITALS: BP 123/84
--- NOTE | 2019-07-03 12:55 | Cardiology Progress Note ---
Cardiology SOAP Progress Note Subjective: No cardiac complaints. Objective: I&O/Vital Signs Weight (Pounds): 205 Weight (Calculated Kilograms): 92.350298 Constitutional: appears stated age, AAO x 3; No apparent distress; well- developed, well-nourished Respiratory: No accessory muscle use, No respiratory distress, No chest tender, No chest expansion is symmetric; chest is bilaterally symmetric; No lungs clear to percussion; lungs clear to auscultation; No crackles, No rhonchi, No rales, No stridor, No wheezing, No pleural rub, No other Cardiovascular: regular rate-rhythm; No irregularly irregular, No extra beats, No parasternal heave is noted, No JVD, No edema, No bradycardia, No tachycardia, No point of maximal impulse, No cardiac thrills are palpable; S1 and S2; No gallop/S3, No gallop/S4, No diastolic murmur, No systolic murmur, No friction rub, No click, No other Gastrointestional: soft, round, audible bowel sounds; No spleenomegaly Extremities: normal range of motion, non-tender, normal inspection; No clubbing, No cyanosis; no lower extremity edema bilateral; No significant edema Neurologic/Psychiatric: no motor/sensory deficits, alert, normal mood/affect, oriented x 3, power is 5/5 both on sides Skin: normal color, warm/dry; No rash, No ulcerations Results/Procedures: Labs A/P: Assessment/Dx: Chest pain, Leukocytosis, Bronchitis pericardial effusion, Acute pericarditis, Active smoking Plan: Chest pain, serial troponin negative. EKG does not have any acute ST-T wave abnormalities. Nuclear stress test done 07/03/2019 showed no ischemia or infarct. Leukocytosis, defer to the primary team. Bronchitis pericardial effusion, echocardiogram done 07/02/2019 showed normal LV function. Trivial pericardial effusion with no tamponade physiology. Acute pericarditis, chest pain likely pericarditis. Increased on inspiration. I will give a dose of ibuprofen 400 mg 1 and see the response. Acute smoking, smoking cessation was strongly recommended. Can follow-up as an outpatient for further testing if required. Thank you for your consultation. Please call me if you have any questions. Eros Castañeda MD, FACP, FACC, FSCAI, FHRS, CCDS Interventional Cardiology Cardiac Electrophysiology Vascular Medicine and Endovascular Interventions Focused Exam Lactate Level 07/02/19 09:05: Lactic Acid Level 1.10 Venita CASTAÑEDA MD Jul 03, 2019 12:55
[2019-07-03 13:54] VITALS: BP 123/84
--- NOTE | 2019-07-06 17:18 | Cardiology Stress Test Report ---
Stress Test Report Type of NM Stress Test: Test Type: LEXISCAN 0.4MG/5ML Date of Procedure/Referring: Date of Procedure: Jul 03, 2019 PCP Colette Whelan DO Admitting Physician Carlin Woodard MD Indications: Chest pain Baseline Heart Rate: 117 Baseline Blood Pressure: Blood Pressure Systolic: 123 Blood Pressure Diastolic: 84 Baseline EKG: Baseline EKG: sinus rhythm Summary & Conclusion: Summary: The patient was brought to the stress lab after informed consent was taken. Stress test was performed according to the Lexiscan protocol. 0.4 mg of IV Lexiscan was given. Low-grade exercise was performed. Baseline EKG showed sinus rhythm at 117 bpm. Blood pressure 133/85 mmHg. Maximum heart rate of 130 bpm and blood pressure 144/83 mmHg. Patient did not have any chest pain, arrhythmias or ST segment changes during the stress test. 10.48 mCi of Myoview were given for rest imaging and 28.9 mCi of Myoview given for stress imaging. Transient ischemic dilatation score 1.12, EF 53 percent. Normal wall motion. Normal myocardial perfusion imaging during rest and stress. Conclusion: Pharmacological stress test was negative for ischemia. Normal LV function with no wall motion abnormalities. Normal myocardial perfusion imaging during rest and stress. Venita RIDDLE MD Jul 06, 2019 17:17
== END 2019-07-03 13:54 | disposition home or self-care (01) | DRG 316 ==
LOC: EDUNIT# 08:03 → ER FS 08:04 → 4TH 12:00
PROVIDERS: ADMIT Internal Medicine; ATTEND Internal Medicine
DX: I31.3 Pericardial effusion (noninflammatory) (principal); J44.9 Chronic obstructive pulmonary disease, unspecified; F17.210 Nicotine dependence, cigarettes, uncomplicated; M10.9 Gout, unspecified; J40 Bronchitis, not specified as acute or chronic
CPT/HCPCS: 36415; 71046; 74178; 78452; 80053; 81000; 83605; 83690; 83880; 84484; 85007; 85025; 85027; 85379; 85610; 85652; 85730; 86141; 93017; 93306; 94640; 96374

== ENCOUNTER → 2019-12-17 | Outpatient (CLI) | payer MEDICARE ==
[~2019-12-17] MED LIST: ALLO100T PO; ATOR20TA49 PO; BUDE10.2 IH; CATHETER FLUSH 10 ML SYR IV PRN; D-ME236L5 PO; DEXT30SU5 PO; HOLD METFORMIN - RECEIVED CONTRAST 20 ML VIAL IV SCH; IOHEXOL 350 MG/ML 100 ML (OMNIPAQUE 350) VIAL IV ONE; MAGN400T39 PO; MULT1TAB69 PO; NAPR220T66 PO; NS 100 ML (IVPB) BAG IV ONE; RT-ALBUINH IH; SAW/1TAB2 PO; SILD100T PO; TMSL.4C PO
[2019-12-17 15:43] LABS: BUN/CREATININE RATIO 17; CREATININE SERUM 1.07 MG/DL (0.60-1.30); GFR ESTIMATED > 60
[2019-12-17 15:43] LABS: ABG BASE EXCESS -0.6 MMOL/L (-2.5-2.5); ABG OXYGEN SATURATION 99 % (94-100); ABG PCO2 34 MMHG (35-45); ABG PH 7.45 (7.37-7.43); ABG PO2 119 MMHG (79-93)
[2019-12-17 15:45] LABS: ALLENS TEST Y
[2019-12-17 15:47] LABS: INSPIRED O2 NOT INDICATED; PATIENT TEMP 36.8; VENTILATOR NO
--- NOTE | 2019-12-17 16:10 | NUR ---
Pt came for PFT and other ordered tests; when preparing to take him back for test, pt stated during screening questions that he has been experiencing more SOA than usual. He also has a wet cough, pt states he is fatigued, but that fatigue has been a half-way symptom, and that he does have occasional abdominal pain. Pt very nervous acting. I let pt know that PFT test should be re-schedule for a better time that he is feeling better (current symptoms: SOA, fatigue, and wet cough). Rescheduling test for better time could yield more accurate results; and due to COVID protocols (Worsening of SOA and wet cough) need to be rescheduled for pt safety. Pt did agree to schedule test for 3 weeks out to see if SOA improves by then. He is rescheduled for January 13, 2020 at 1300. Pt was nervous to have his ABG test run today; he stated he had been looking up procedure online to see what it involved. I explained to pt what ABG procedure consisted of and what it was for. I was able to draw ABG and send to lab for results; pt also did go ahead and perform 6 min walk test, test sent to ordering physician. Pt still acted very nervous during the time I helped him with tests; he was concerned that we thought he had COVID; I explained that "no, we do not believe he has COVID, but due to recent new symptom (that is unusual for him - SOA), that test should be rescheduled for a time he is feeling better." Pt was escorted to waiting room for CT test.
--- NOTE | 2019-12-17 17:15 | Diagnostic Imaging Report ---
PROCEDURE: CT chest with contrast only. TECHNIQUE: Multiple contiguous axial images were obtained through the chest after administration of intravenous contrast. Auto Exposure Controls were utilized during the CT exam to meet ALARA standards for radiation dose reduction. INDICATION: COPD. Cough. Shortness of air. COMPARISON: CT abdomen and pelvis dated 07/02/2019. FINDINGS: Cardiomediastinal structures show normal heart size. There is no large pericardial effusion. No pathologically enlarged or morphologically abnormal adenopathy is identified within the mediastinum, candido, or axilla. Evaluation of the lung valdez demonstrates no focal consolidation, large effusion, or pneumothorax. There is nedx-nw-[id number] central lobular air trapping within the upper lung valdez consistent with background obstructive pulmonary disease. No suspicious pulmonary nodules or masses are identified. Osseous structures show age-related degenerative changes. No lytic or blastic bony lesions are seen. Included portions of the upper abdomen are unremarkable as well. IMPRESSION: 1. Unremarkable CT of the chest. No acute cardiopulmonary process. Dictated by: Dictated on workstation # [id number]
== END ==
LOC: RT 15:02
PROVIDERS: ATTEND Internal Medicine Critical Care Medicine
DX: Z01.812 Encounter for preprocedural laboratory examination (principal); J44.9 Chronic obstructive pulmonary disease, unspecified
CPT/HCPCS: 36415; 71260; 82565; 82805; 84520

== ENCOUNTER → 2020-01-13 | Outpatient (CLI) | payer MEDICARE ==
[~2020-01-13] MED LIST changes: -CATHETER FLUSH 10 ML SYR IV PRN; -HOLD METFORMIN - RECEIVED CONTRAST 20 ML VIAL IV SCH; -IOHEXOL 350 MG/ML 100 ML (OMNIPAQUE 350) VIAL IV ONE; +MULT-567 PO; -MULT1TAB69 PO; -NS 100 ML (IVPB) BAG IV ONE; +RT-ALBUTEROL SULF 2.5 MG/3 ML PRE-MIX VIAL INH ONE
== END ==
LOC: RT 13:29
PROVIDERS: ATTEND Internal Medicine Critical Care Medicine
DX: Z01.812 Encounter for preprocedural laboratory examination (principal); J44.9 Chronic obstructive pulmonary disease, unspecified
CPT/HCPCS: 94060; 94726; 94729

== ENCOUNTER 2020-02-28 20:21 | Emergency (ER) | payer MEDICARE ==
[~2020-02-28] VITALS: Ht 177.8 cm; Wt 90.7 kg
[~2020-02-28 20:21] MED LIST changes: -RT-ALBUTEROL SULF 2.5 MG/3 ML PRE-MIX VIAL INH ONE
[2020-02-28 20:44] LABS: BASOPHILS # (AUTO) 0.1 10^3/uL (0.0-0.1); BASOPHILS % (AUTO) 1 % (0-10); EOSINOPHILS # (AUTO) 0.1 10^3/uL (0.0-0.3); EOSINOPHILS % (AUTO) 0 % (0-10); HEMATOCRIT 41 % (40-54); HEMOGLOBIN 13.8 G/DL (13.3-17.7); LYMPHOCYTES # (AUTO) 3.2 X 10^3 (1.0-4.0); LYMPHOCYTES % (AUTO) 17 % (12-44); MEAN CORPUSCULAR HEMOGLOBIN 30 PG (25-34); MEAN CORPUSCULAR HGB CONC 34 G/DL (32-36); MEAN CORPUSCULAR VOLUME 89 FL (80-99); MEAN PLATELET VOLUME 9.1 FL (7.4-10.4); MONOCYTES # (AUTO) 1.6 X 10^3 (0.0-1.0); MONOCYTES % (AUTO) 9 % (0-12); NEUTROPHILS # (AUTO) 13.8 X 10^3 (1.8-7.8); NEUTROPHILS % (AUTO) 73 % (42-75); PLATELET COUNT 396 10^3/uL (130-400); RED CELL DISTRIBUTION WIDTH 15.2 % (10.0-14.5)
[2020-02-28] MEDS ORDERED: ASPIRIN 81 MG CHEW (CHILDREN'S ASA) PO ONE (20:45)
[2020-02-28] MEDS ORDERED: NS IV 1000 ML 1,000 ML IV SCH ×2 (20:45→21:45)
[2020-02-28 20:54] LABS: BUN/CREATININE RATIO 14; CARBON DIOXIDE 22 MMOL/L (21-32); CHLORIDE 101 MMOL/L (98-107); CREATININE SERUM 0.88 MG/DL (0.60-1.30); GFR ESTIMATED > 60; GLUCOSE 147 MG/DL (70-105); POTASSIUM 4.3 MMOL/L (3.6-5.0); SODIUM 137 MMOL/L (135-145)
[2020-02-28 20:55] LABS: ALANINE AMINOTRANSFERASE 16 U/L (0-55); ALKALINE PHOSPHATASE 96 U/L (40-136); BILIRUBIN,TOTAL 0.3 MG/DL (0.1-1.0); CALCIUM 8.9 MG/DL (8.5-10.1); MAGNESIUM 1.8 MG/DL (1.6-2.4)
--- NOTE | 2020-02-28 20:55 | ED Dyspnea ---
General Chief Complaint: Respiratory Problems Stated Complaint: SHORT OF BREATHE Source of Information: Patient Exam Limitations: No Limitations History of Present Illness Date Seen by Provider: Feb 28, 2020 Time Seen by Provider: 20:25 Initial Comments The patient is a pleasant 54-year-old male presents for evaluation of shortness of breath, cough, subjective fever and chest pain since yesterday. He reports a history of COPD and is a current smoker and states that he constantly wheezes at baseline. He has been using his inhaler at home with little relief. His temperature upon arrival to 100.3F. He denies any recent travel or sick contacts. He is noted to be quite tachycardic upon arrival with a heart rate in the 140s. He is alert and oriented 4, anxious, and is showing some mild respiratory distress with increased work of breathing. He denies hemoptysis, syncope, palpitations, abdominal or back pain, urinary complaints, headache, neck pain or stiffness him a sore throat, loss of taste or smell, nausea or vomiting, or diarrhea. Timing/Duration: Other (1-2 days) Severity: Moderate Modifying Factors: Improves With Albuterol Inhaler (little relief) Associated Symptoms: Chest Pain, Cough, Wheezing Allergies and Home Medications Allergies Coded Allergies: No Known Drug Allergies (Unverified , 09/05/18) Home Medications Albuterol Sulfate 1 Puff Puff, 2 PUFF IH Q4H PRN for SHORTNESS OF BREATH, (Reported) 1 PUFF = 90 MCG Allopurinol 100 Mg Tablet, 100 MG PO DAILY, (Reported) LAST FILLED #30 05-19-19 Atorvastatin Calcium 20 Mg Tablet, 20 MG PO DAILY, (Reported) LAST FILLED #30 05-19-19 Budesonide/Formoterol Fumarate 10.2 Gm Hfa.aer.ad, 2 PUFF IH BID, (Reported) LAST FILLED #1 05-18-19 D-Methorphan/Acetamin/Doxylamn 236 Ml Liquid, 30 ML PO Q6H PRN for COUGH, (Reported) Dextromethorphan Polistirex 30 Mg/5 Ml Siria.er.12h, 10 ML PO Q12H PRN for COUGH, (Reported) Magnesium Oxide 400 Mg Tablet, 400 MG PO DAILY, (Reported) Multivitamin 1 Each Tablet, 1 TAB PO DAILY, (Reported) Naproxen Sodium 220 Mg Tablet, 440 MG PO Q8H PRN for PAIN-MILD (1-4), (Reported) Saw/Vit E/Sod Cinthia/Lyc/Beta/Pyg 1 Each Tablet, 1 TAB PO DAILY, (Reported) Sildenafil Citrate 100 Mg Tablet, 100 MG PO DAILY PRN for ED, (Reported) Tamsulosin HCl 0.4 Mg Cap, 0.4 MG PO DAILY, (Reported) LAST FILLED #30 05-19-19 Patient Home Medication List Home Medication List Reviewed: Yes Review of Systems Review of Systems Constitutional: no symptoms reported, fever EENTM: no symptoms reported Respiratory: cough, short of breath, wheezing Cardiovascular: chest pain Gastrointestinal: no symptoms reported Genitourinary: no symptoms reported Musculoskeletal: no symptoms reported Skin: no symptoms reported Psychiatric/Neurological: No Symptoms Reported Endocrine: No Symptoms Reported Hematologic/Lymphatic: No Symptoms Reported All Other Systems Reviewed Negative Unless Noted: Yes Past Yfykuqb-Stmnjh-Kzfcaw Hx Past Med/Social Hx: Reviewed Nursing Past Med/Soc Hx Patient Social History Type Used: Cigarettes 2nd Hand Smoke Exposure: No Recent Foreign Travel: No Contact w/Someone Who Travel: No Recent Hopitalizations: No Immunizations Up To Date Tetanus Booster (TDap): Unknown PED Vaccines UTD: No Date of Pneumonia Vaccine: May 02, 2020 Seasonal Allergies Seasonal Allergies: No Past Medical History Surgeries: No Respiratory: Yes COPD Currently Using CPAP: No Currently Using BIPAP: No Cardiac: Yes High Cholesterol Neurological: No Reproductive Disorders: No Genitourinary: Yes Prostate Problems Gastrointestinal: No Musculoskeletal: No Gout Endocrine: No HEENT: No Loss of Vision: Denies Hearing Impairment: Denies Cancer: No Psychosocial: No Integumentary: No Blood Disorders: No Family Medical History Arthritis 19 MOTHER Cardiovascular disease 19 MOTHER Psychosocial problem 19 MOTHER Respiratory disorder 19 FATHER 19 MOTHER Heart Disease Physical Exam Vital Signs Vital Signs - First Documented 02/28/20 20:21 Temp 38.0 Pulse 138 Resp 26 B/P (MAP) 148/71 (96) Pulse Ox 95 O2 Delivery Room Air Capillary Refill : Height, Weight, BMI Height: 5'10.00" Weight: 205lbs. oz. [id number]; 28.75 BMI Method:Stated General Appearance: No Apparent Distress, WD/WN, Anxious HEENT: PERRL/EOMI, Normal ENT Inspection Neck: Full Range of Motion, Normal Inspection Respiratory: Respiratory Distress (mild resp distress, increased work of breathing, diffuse wheezing), Wheezing Cardiovascular: No Edema, No Murmur, Tachycardia Gastrointestinal: Normal Bowel Sounds, Non Tender, Soft Extremity: Normal Capillary Refill, Normal Inspection, Non Tender Neurologic/Psychiatric: Alert, Oriented x3, No Motor/Sensory Deficits, Normal Mood/Affect Skin: Normal Color, Warm/Dry Lymphatic: No Adenopathy Focused Exam Lactate Level 02/28/20 20:30: Lactic Acid Level 1.13 Lactic Acid Level Laboratory Tests Test 02/28/20 20:30 Lactic Acid Level 1.13 MMOL/L (0.50-2.00) Progress/Results/Core Measures Results/Orders Lab Results Laboratory Tests Test 02/28/20 20:30 02/28/20 20:35 02/28/20 22:34 Range/Units White Blood Count 19.0 H 4.3-11.0 10^3/uL Red Blood Count 4.57 4.35-5.85 10^6/uL Hemoglobin 13.8 13.3-17.7 G/DL Hematocrit 41 40-54 % Mean Corpuscular Volume 89 80-99 FL Mean Corpuscular Hemoglobin 30 25-34 PG Mean Corpuscular Hemoglobin Concent 34 32-36 G/DL Red Cell Distribution Width 15.2 H 10.0-14.5 % Platelet Count 396 130-400 10^3/uL Mean Platelet Volume 9.1 7.4-10.4 FL Neutrophils (%) (Auto) 73 42-75 % Lymphocytes (%) (Auto) 17 12-44 % Monocytes (%) (Auto) 9 0-12 % Eosinophils (%) (Auto) 0 0-10 % Basophils (%) (Auto) 1 0-10 % Neutrophils # (Auto) 13.8 H 1.8-7.8 X 10^3 Lymphocytes # (Auto) 3.2 1.0-4.0 X 10^3 Monocytes # (Auto) 1.6 H 0.0-1.0 X 10^3 Eosinophils # (Auto) 0.1 0.0-0.3 10^3/uL Basophils # (Auto) 0.1 0.0-0.1 10^3/uL Neutrophils % (Manual) 74 % Lymphocytes % (Manual) 21 % Monocytes % (Manual) 5 % Prothrombin Time 13.0 12.2-14.7 SEC INR Comment 1.0 0.8-1.4 Activated Partial Thromboplast Time 31 24-35 SEC Sodium Level 137 135-145 MMOL/L Potassium Level 4.3 3.6-5.0 MMOL/L Chloride Level 101 98-107 MMOL/L Carbon Dioxide Level 22 21-32 MMOL/L Anion Gap 14 5-14 MMOL/L Blood Urea Nitrogen 12 7-18 MG/DL Creatinine 0.88 0.60-1.30 MG/DL Estimat Glomerular Filtration Rate > 60 BUN/Creatinine Ratio 14 Glucose Level 147 H 70-105 MG/DL Lactic Acid Level 1.13 0.50-2.00 MMOL/L Calcium Level 8.9 8.5-10.1 MG/DL Corrected Calcium 8.9 8.5-10.1 MG/DL Magnesium Level 1.8 1.6-2.4 MG/DL Total Bilirubin 0.3 0.1-1.0 MG/DL Aspartate Amino Transf (AST/SGOT) 15 5-34 U/L Alanine Aminotransferase (ALT/SGPT) 16 0-55 U/L Alkaline Phosphatase 96 40-136 U/L Troponin I < 0.30 <0.30 NG/ML Pro-B-Type Natriuretic Peptide 183.5 H <75.0 PG/ML Total Protein 7.0 6.4-8.2 GM/DL Albumin 4.0 3.2-4.5 GM/DL Blood Gas Puncture Site RIGHT WRIST Blood Gas Patient Temperature 38.0 Arterial Blood pH 7.41 7.37-7.43 Arterial Blood Partial Pressure CO2 39 35-45 MMHG Arterial Blood Partial Pressure O2 77 L 79-93 MMHG Arterial Blood HCO3 25 23-27 MMOL/L Arterial Blood Total CO2 25.9 21.0-31.0 MMOL/L Arterial Blood Oxygen Saturation 95 94-100 % Arterial Blood Base Excess 0.1 -2.5-2.5 MMOL/L Nathaniel Test NEGATIVE Blood Gas Ventilator Setting NO Blood Gas Inspired Oxygen ROOM AIR My Orders Orders - TUCKER JAUREGUI DO Cbc With Automated Diff (02/28/20 20:31) Magnesium (02/28/20 20:31) Chest 1 View Ap/Pa Only (02/28/20 20:31) Ekg Tracing (02/28/20 20:31) Comprehensive Metabolic Panel (02/28/20 20:31) Protime With Inr (02/28/20 20:31) Partial Thromboplastin Time (02/28/20 20:31) O2 (02/28/20 20:31) Monitor-Rhythm Ecg Trace Only (02/28/20 20:31) Ed Iv/Invasive Line Start (02/28/20 20:31) Troponin I Fs (02/28/20 20:31) Probnp Fs (02/28/20 20:31) Coronavirus Sars-Cov-2 So 2018 (02/28/20 20:31) Ns Iv 1000 Ml (Sodium Chloride 0.9%) (02/28/20 20:45) Aspirin Chewable Tablet (Baby Aspirin Ch (02/28/20 20:45) Creatine Kinase (02/28/20 20:30) Creatine Kinase Mb (02/28/20 20:30) Manual Differential (02/28/20 20:30) Acetaminophen Tablet (Tylenol Tablet) (02/28/20 21:00) Blood Culture (02/28/20 20:49) Lactic Acid Analyzer (02/28/20 20:49) Methylprednisolone Sod Succ (Solu-Medrol (02/28/20 21:45) Ct Angio Chest W (02/28/20 21:32) Ns Iv 1000 Ml (Sodium Chloride 0.9%) (02/28/20 21:45) Iohexol Injection (Omnipaque 350 Mg/Ml 1 (02/28/20 21:45) Received Contrast (Hold Metformin- Contr (02/28/20 21:45) Sodium Chloride Flush (Catheter Flush Sy (02/28/20 21:45) Ns (Ivpb) (Sodium Chloride 0.9% Ivpb Bag (02/28/20 21:45) Arterial Blood Gas (02/28/20 22:18) Medications Given in ED Current Medications Medications Dose Ordered Sig/Cami Route Start Time Stop Time Status Last Admin Dose Admin Acetaminophen 1,000 mg ONCE ONCE PO 02/28/20 21:00 02/28/20 21:01 DC 02/28/20 21:02 1,000 MG Aspirin 324 mg ONCE ONCE PO 02/28/20 20:45 02/28/20 20:46 DC 02/28/20 20:38 324 MG Iohexol 125 ml ONCE ONCE IV 02/28/20 21:45 02/28/20 21:46 DC 02/28/20 21:52 125 ML Methylprednisolone Sodium Succinate 125 mg ONCE ONCE IVP 02/28/20 21:45 02/28/20 21:46 DC 02/28/20 22:07 125 MG Sodium Chloride 10 ml NEEDED PRN IV 02/28/20 21:45 02/28/20 21:53 10 ML Sodium Chloride 100 ml ONCE ONCE IV 02/28/20 21:45 02/28/20 21:46 DC 02/28/20 21:52 100 ML Vital Signs/I&O 02/28/20 02/28/20 20:21 21:02 Temp 38.0 38.0 Pulse 138 Resp 26 B/P (MAP) 148/71 (96) Pulse Ox 95 O2 Delivery Room Air Progress Progress Note : Progress Note @2245 - Received call from radiologist stating that the patient is a 2 cm pericardial effusion. Patient was updated and explained to him that he'll need to be transferred to a higher level care. He prefers [facility] in [place]. [facility] transfer line was contacted at this time and they state they will call back shortly. @2300 - Dr. Walker accepts the admission and will speak with cardiology and/or CT surgery and call back with a hospital and bed assignment. I asked Dr. Walker to see if the [facility] [facility] consultant would prefer ground vs air for transport. @0 - Pt accepted for an ER-to-ER transfer to [facility] at this time and they state ground transfer is appropriate. EMS called for emergent ground transfer. Comment EKG@2022 - Sinus tachycardia, rate 135, normal axis, no acute ischemic findings noted, no STEMI, reviewed and interpreted by myself Departure Impression Primary Impression: Pericardial effusion Additional Impressions: Chest pain Shortness of breath Disposition: XFER SHT-TRM HOSP Condition: Critical Transfer Transfer Reason: Exceeds level of care Time Spoke to Accepting Phy: 22:[address] Walker accepts the transfer to [facility] ER-to-ER Transfer Time: 23:00 Transfer Facility: [facility] Method of Transfer: EMS Departure-Patient Inst. Referrals: ARACELI JOHNSON MD (PCP/Family) Primary Care Physician TUCKER JAUREGUI DO Feb 28, 2020 20:55
[2020-02-28] MEDS ORDERED: ACETAMINOPHEN 500 MG TAB (TYLENOL) PO ONE (21:00)
[2020-02-28] MEDS ORDERED: NS 100 ML (IVPB) BAG IV ONE (21:45)
[2020-02-28] MEDS ORDERED: IOHEXOL 350 MG/ML 150 ML (OMNIPAQUE 350) VIAL IV ONE (21:45)
[2020-02-28] MEDS ORDERED: CATHETER FLUSH 10 ML SYR IV PRN (21:45)
[2020-02-28] MEDS ORDERED: methylPREDNISolone 125 MG (Solu-MEDROL) VIAL IVP ONE (21:45)
[2020-02-28] MEDS ORDERED: HOLD METFORMIN - RECEIVED CONTRAST 20 ML VIAL IV SCH (21:45)
[2020-02-28 22:34] LABS: LYMPHOCYTES % (MANUAL) 21 %; MONOCYTES % (MANUAL) 5 %; NEUTROPHILS % (MANUAL) 74 %
[2020-02-28 23:00] LABS: ABG BASE EXCESS 0.1 MMOL/L (-2.5-2.5); ABG OXYGEN SATURATION 95 % (94-100); ABG PCO2 39 MMHG (35-45); ABG PH 7.41 (7.37-7.43); ABG PO2 77 MMHG (79-93); ABG TCO2 25.9 MMOL/L (21.0-31.0); ALLENS TEST NEGATIVE; INSPIRED O2 ROOM AIR; VENTILATOR NO
[2020-02-28 23:42] VITALS: BP 110/60
--- NOTE | 2020-02-29 05:55 | Diagnostic Imaging Report ---
Indication: Chest pain, cough and fever Portable chest 9:18 PM Heart size and pulmonary vascularity are normal. Lungs are clear. There are no effusions or pneumothoraces. IMPRESSION: Negative chest Dictated by: Dictated on workstation # [id number]
--- NOTE | 2020-02-29 07:50 | Diagnostic Imaging Report ---
PROCEDURE: CT angiography of the chest with contrast. TECHNIQUE: Multiple contiguous axial images were obtained through the chest after uneventful bolus administration of intravenous contrast. 3D reconstructed CTA MIP acquisitions were also performed. Auto Exposure Controls were utilized during the CT exam to meet ALARA standards for radiation dose reduction. INDICATION: Short of breath since last night. Chest pain. EXAMINATION: CTA of the chest from 02/28/2020 COMPARISON: CT chest 12/17/2019 FINDINGS: There are chronic changes throughout the lungs with linear atelectasis and/or scar at the right lung base. No acute process in either lung. No pneumothorax. There is a pericardial effusion measuring at least 2 cm in thickness. No central or proximal segmental pulmonary emboli. The thoracic aorta is unremarkable for acute abnormality. No hilar or mediastinal adenopathy appreciated. The visualized upper abdominal structures demonstrate no acute abnormality. There is no acute osseous abnormality. IMPRESSION: 1. No evidence for pulmonary embolus. 2. Pericardial effusion of uncertain etiology. Other incidental findings as above. Pertinent findings agree with the preliminary report. Dictated by: Dictated on workstation # [id number]
[2020-02-29 08:13] LABS: CREATINE KINASE MB 1.5 NG/ML (<6.6)
== END 2020-02-28 23:49 | disposition short-term general hospital (02) ==
LOC: EDUNIT# 20:21 → ER FS 20:23
DX: I31.3 Pericardial effusion (noninflammatory) (principal); R05 Cough; R50.9 Fever, unspecified; E78.00 Pure hypercholesterolemia, unspecified; J44.9 Chronic obstructive pulmonary disease, unspecified; F17.210 Nicotine dependence, cigarettes, uncomplicated; Z79.51 Long term (current) use of inhaled steroids; Z20.828 Contact with and (suspected) exposure to other viral communicable diseases
CPT/HCPCS: 36415; 71045; 71275; 80053; 82550; 82553; 82805; 83605; 83735; 83880; 84484; 85007; 85027; 85610; 85730; 87040; 93005; 93041; 99284; U0002; 87635

== ENCOUNTER 2020-03-06 21:12 | Emergency (ER) | payer MEDICARE ==
[~2020-03-06] VITALS: Ht 177 cm; Wt 81.0 kg
--- NOTE | 2020-03-06 22:09 | Diagnostic Imaging Report ---
CHEST 1 VIEW, AP/PA ONLY Indication: Chest pain. Comparison: None available. Findings: No focal airspace disease in the visualized lungs. Please note that the posterior lower lobes are poorly evaluated by portable radiography. No pleural effusion or pneumothorax. Normal cardiomediastinal silhouette. Impression: 1. No acute cardiopulmonary process by portable radiography. Dictated by: Dictated on workstation # [id number]
[2020-03-06] MEDS ORDERED: RT-ALBUTEROL/IPRATROPIUM 3 ML (DUONEB) VIAL INH ONE (22:15)
--- NOTE | 2020-03-06 22:39 | ED Cough/URI ---
General Chief Complaint: Respiratory Problems Stated Complaint: SHORTNESS OF BREATH Source: patient Exam Limitations: no limitations History of Present Illness Date Seen by Provider: Mar 06, 2020 Time Seen by Provider: 22:37 Initial Comments To ER with cough shortness of breath and fever. He has COPD. Temperature up to 101. He was seen at [facility] for chest pain last week, CT angios chest showed pericardial effusion so he was transferred to [facility] where he states that he was told he did not have a pericardial effusion but they thought he had pericarditis so he was discharged on aspirin and colchicine. He has persistent wheezing and shortness of breath. Timing/Duration: constant Severity/Quality: moderate Associated Symptoms: cough, shortness of breath Allergies and Home Medications Allergies Coded Allergies: No Known Drug Allergies (Unverified , 09/05/18) Home Medications Albuterol Sulfate 1 Puff Puff, 2 PUFF IH Q4H PRN for SHORTNESS OF BREATH, (Reported) 1 PUFF = 90 MCG Allopurinol 100 Mg Tablet, 100 MG PO DAILY, (Reported) LAST FILLED #30 05-19-19 Atorvastatin Calcium 20 Mg Tablet, 20 MG PO DAILY, (Reported) LAST FILLED #30 05-19-19 Budesonide/Formoterol Fumarate 10.2 Gm Hfa.aer.ad, 2 PUFF IH BID, (Reported) LAST FILLED #1 05-18-19 D-Methorphan/Acetamin/Doxylamn 236 Ml Liquid, 30 ML PO Q6H PRN for COUGH, (Reported) Dextromethorphan Polistirex 30 Mg/5 Ml Siria.er.12h, 10 ML PO Q12H PRN for COUGH, (Reported) Magnesium Oxide 400 Mg Tablet, 400 MG PO DAILY, (Reported) Multivitamin 1 Each Tablet, 1 TAB PO DAILY, (Reported) Naproxen Sodium 220 Mg Tablet, 440 MG PO Q8H PRN for PAIN-MILD (1-4), (Reported) Saw/Vit E/Sod Cinthia/Lyc/Beta/Pyg 1 Each Tablet, 1 TAB PO DAILY, (Reported) Sildenafil Citrate 100 Mg Tablet, 100 MG PO DAILY PRN for ED, (Reported) Tamsulosin HCl 0.4 Mg Cap, 0.4 MG PO DAILY, (Reported) LAST FILLED #30 05-19-19 Patient Home Medication List Home Medication List Reviewed: Yes Review of Systems Review of Systems Constitutional: see HPI, fever EENTM: see HPI Respiratory: see HPI, cough, short of breath Cardiovascular: no symptoms reported Genitourinary: no symptoms reported Musculoskeletal: no symptoms reported Skin: no symptoms reported Psychiatric/Neurological: No Symptoms Reported Hematologic/Lymphatic: No Symptoms Reported Immunological/Allergic: no symptoms reported Past Kkexuux-Tiqvjl-Wnmgcq Hx Patient Social History Type Used: Cigarettes 2nd Hand Smoke Exposure: No Recent Foreign Travel: No Contact w/Someone Who Travel: No Recent Hopitalizations: No Immunizations Up To Date Tetanus Booster (TDap): Unknown PED Vaccines UTD: No Date of Pneumonia Vaccine: May 02, 2020 Seasonal Allergies Seasonal Allergies: No Past Medical History Surgeries: Yes (Jaw Sx from fracture) Respiratory: Yes COPD Currently Using CPAP: No Currently Using BIPAP: No Cardiac: Yes High Cholesterol Neurological: No Reproductive Disorders: No Genitourinary: Yes Prostate Problems Gastrointestinal: No Musculoskeletal: No Gout Endocrine: No HEENT: No Loss of Vision: Denies Hearing Impairment: Denies Cancer: No Psychosocial: No Integumentary: No Blood Disorders: No Family Medical History Arthritis 19 MOTHER Cardiovascular disease 19 MOTHER Psychosocial problem 19 MOTHER Respiratory disorder 19 FATHER 19 MOTHER Heart Disease Physical Exam Capillary Refill : Height: 5'10.00" Weight: 205lbs. oz. 92.242945zy; 28.00 BMI Method:Stated General Appearance: WD/WN, no apparent distress, other (oxygen saturation 97% room air) Eyes: Bilateral Eye Normal Inspection, Bilateral Eye PERRL, Bilateral Eye EOMI HEENT: PERRL/EOMI, normal ENT inspection Respiratory: no respiratory distress, wheezing Cardiovascular: other (rate of 120, sinus. Similar to last week at [place]) Gastrointestinal: normal bowel sounds, non tender Neurologic/Psychiatric: alert, normal mood/affect, oriented x 3 Skin: normal color, warm/dry Progress/Results/Core Measures Suspected Sepsis SIRS Temperature: Pulse: Respiratory Rate: Laboratory Tests 03/06/20 02:25: White Blood Count 13.2H Blood Pressure / Mean: Laboratory Tests 03/06/20 02:25: Creatinine 0.93, Platelet Count 231, Total Bilirubin 0.3 Results/Orders Lab Results Laboratory Tests Test 03/06/20 02:25 03/06/20 23:05 Range/Units White Blood Count 13.2 H 4.3-11.0 10^3/uL Red Blood Count 3.83 L 4.35-5.85 10^6/uL Hemoglobin 11.5 L 13.3-17.7 G/DL Hematocrit 34 L 40-54 % Mean Corpuscular Volume 90 80-99 FL Mean Corpuscular Hemoglobin 30 25-34 PG Mean Corpuscular Hemoglobin Concent 33 32-36 G/DL Red Cell Distribution Width 15.1 H 10.0-14.5 % Platelet Count 231 130-400 10^3/uL Mean Platelet Volume 9.8 7.4-10.4 FL Neutrophils (%) (Auto) 62 42-75 % Lymphocytes (%) (Auto) 22 12-44 % Monocytes (%) (Auto) 14 H 0-12 % Eosinophils (%) (Auto) 1 0-10 % Basophils (%) (Auto) 0 0-10 % Neutrophils # (Auto) 8.2 H 1.8-7.8 X 10^3 Lymphocytes # (Auto) 3.0 1.0-4.0 X 10^3 Monocytes # (Auto) 1.9 H 0.0-1.0 X 10^3 Eosinophils # (Auto) 0.1 0.0-0.3 10^3/uL Basophils # (Auto) 0.0 0.0-0.1 10^3/uL Sodium Level 137 135-145 MMOL/L Potassium Level 4.2 3.6-5.0 MMOL/L Chloride Level 105 98-107 MMOL/L Carbon Dioxide Level 20 L 21-32 MMOL/L Anion Gap 12 5-14 MMOL/L Blood Urea Nitrogen 18 7-18 MG/DL Creatinine 0.93 0.60-1.30 MG/DL Estimat Glomerular Filtration Rate > 60 BUN/Creatinine Ratio 19 Glucose Level 124 H 70-105 MG/DL Calcium Level 8.1 L 8.5-10.1 MG/DL Corrected Calcium 8.5 8.5-10.1 MG/DL Total Bilirubin 0.3 0.1-1.0 MG/DL Aspartate Amino Transf (AST/SGOT) 22 5-34 U/L Alanine Aminotransferase (ALT/SGPT) 25 0-55 U/L Alkaline Phosphatase 111 40-136 U/L Troponin I < 0.028 <0.028 NG/ML B-Type Natriuretic Peptide 50.5 <100.0 PG/ML Total Protein 6.6 6.4-8.2 GM/DL Albumin 3.5 3.2-4.5 GM/DL My Orders Orders - JAVAN ROLAND APRN Ekg Tracing (03/06/20 21:26) Cbc With Automated Diff (03/06/20 21:26) Comprehensive Metabolic Panel (03/06/20 21:26) BNP (03/06/20 21:26) Troponin I (03/06/20 21:26) Ed Iv/Invasive Line Start (03/06/20 21:26) Chest 1 View, Ap/Pa Only (03/06/20 21:33) Albuterol/Ipra Inhalation Soln (Duoneb I (03/06/20 22:15) Svn Small Volume Nebulizer (03/06/20 22:10) Coronavirus Sars-Cov-2 So 2018 (03/06/20 22:50) Medications Given in ED Current Medications Medications Dose Ordered Sig/Cami Route Start Time Stop Time Status Last Admin Dose Admin Albuterol/ Ipratropium 3 ml ONCE ONCE INH 03/06/20 22:15 03/06/20 22:16 DC 03/06/20 23:12 3 ML Vital Signs/I&O Capillary Refill : Departure Impression Primary Impression: COPD (chronic obstructive pulmonary disease) Additional Impression: Wheezing Disposition: 01 HOME, SELF-CARE Condition: Stable Departure-Patient Inst. Decision time for Depature: 23:10 Referrals: ARACELI JOHNSON MD (PCP/Family) Primary Care Physician Patient Instructions: Cough, Adult (DC) Add. Discharge Instructions: 1. We have retested you for coronavirus. Vital take about 24-48 hours to come back. In the meantime will treat this as a COPD flareup with a course of steroids and antibiotics. Return to ER for any worsening or any other concerns. Call your doctor tomorrow for follow-up. All discharge instructions reviewed with patient and/or family. Voiced understanding. Scripts Doxycycline Hyclate (Doxycycline Hyclate) 100 Mg Tablet 100 MG PO BID, #8 TAB 0 Refills Prov: JAVAN ROLAND APRN 03/06/20 Prednisone (Prednisone) 20 Mg Tab 40 MG PO DAILY, #6 TAB 0 Refills Prov: JAVAN ROLAND APRN 03/06/20 Copy Copies To 1: GUARACELI STEIN MD, PETER J APRN Mar 06, 2020 22:39
[2020-03-06 22:44] LABS: BASOPHILS % (AUTO) 0 % (0-10); EOSINOPHILS # (AUTO) 0.1 10^3/uL (0.0-0.3); EOSINOPHILS % (AUTO) 1 % (0-10); HEMATOCRIT 34 % (40-54); HEMOGLOBIN 11.5 G/DL (13.3-17.7); LYMPHOCYTES % (AUTO) 22 % (12-44); MEAN CORPUSCULAR HEMOGLOBIN 30 PG (25-34); MEAN CORPUSCULAR HGB CONC 33 G/DL (32-36); MEAN CORPUSCULAR VOLUME 90 FL (80-99); MEAN PLATELET VOLUME 9.8 FL (7.4-10.4); MONOCYTES # (AUTO) 1.9 X 10^3 (0.0-1.0); MONOCYTES % (AUTO) 14 % (0-12); NEUTROPHILS # (AUTO) 8.2 X 10^3 (1.8-7.8); NEUTROPHILS % (AUTO) 62 % (42-75); PLATELET COUNT 231 10^3/uL (130-400); WHITE BLOOD COUNT 13.2 10^3/uL (4.3-11.0)
[2020-03-06 22:57] LABS: ALBUMIN 3.5 GM/DL (3.2-4.5); CHLORIDE 105 MMOL/L (98-107); POTASSIUM 4.2 MMOL/L (3.6-5.0); SODIUM 137 MMOL/L (135-145)
[2020-03-06 22:58] LABS: CALCIUM 8.1 MG/DL (8.5-10.1)
[2020-03-06 22:59] LABS: GLUCOSE 124 MG/DL (70-105)
[2020-03-06 23:00] LABS: TOTAL PROTEIN 6.6 GM/DL (6.4-8.2)
[2020-03-06 23:01] LABS: BILIRUBIN,TOTAL 0.3 MG/DL (0.1-1.0); CARBON DIOXIDE 20 MMOL/L (21-32)
[2020-03-06 23:03] LABS: ALKALINE PHOSPHATASE 111 U/L (40-136); CREATININE SERUM 0.93 MG/DL (0.60-1.30); GFR ESTIMATED > 60
[2020-03-06 23:04] LABS: BUN/CREATININE RATIO 19
[2020-03-06 23:06] LABS: ALANINE AMINOTRANSFERASE 25 U/L (0-55)
[2020-03-06] MEDS ORDERED: PRD20T PO (23:18)
[2020-03-06] MEDS ORDERED: DOXY100T2 PO (23:18)
[2020-03-06] MEDS ORDERED: predniSONE 20 MG TAB PO ONE (23:30)
[2020-03-06] MEDS ORDERED: cefTRIAXone FOR IV USE 1,000 MG in WATER (STERILE) FOR INJECTION 10 ML IV ONE (23:30)
[2020-03-06 23:39] VITALS: BP 117/88
== END 2020-03-06 23:46 | disposition home or self-care (01) ==
LOC: EDUNIT# 21:12 → ER 21:14
DX: J44.9 Chronic obstructive pulmonary disease, unspecified (principal); R06.2 Wheezing; E78.00 Pure hypercholesterolemia, unspecified; Z82.49 Family history of ischemic heart disease and other diseases of the circulatory system; Z20.828 Contact with and (suspected) exposure to other viral communicable diseases
CPT/HCPCS: 71045; 80053; 83880; 84484; 85025; 94640; 99284; U0002; 36415; 87635

== ENCOUNTER 2020-03-11 17:50 | Emergency (ER) | payer MEDICARE ==
[~2020-03-11] VITALS: Ht 177.8 cm; Wt 93.9 kg
[~2020-03-11 17:50] MED LIST changes: +DOXY100T2 PO; +PRD20T PO
[2020-03-11] MEDS ORDERED: morphine INJ 10 MG/ML 1ML (SYR OR VIAL) IVP STA (18:02)
--- NOTE | 2020-03-11 18:13 | ED Chest Pain ---
General Stated Complaint: CHEST PAIN/SOA,FEVER Source: patient, EMS, RN notes reviewed, EMS notes reviewed, old records Exam Limitations: no limitations History of Present Illness Date Seen by Provider: Mar 11, 2020 Time Seen by Provider: 17:50 Initial Comments This patient is a 54-year-old male that presents to the emergency department for chest pain has increased throughout the day. Patient states he's had chest pain off and on for the past couple weeks. Patient was recently diagnosed with a pericardial effusion. Patient is scheduled to be seen by CV surgery at [facility] in [place]. Patient states he woke up this morning having increased than normal chest pain the pain increases with breathing deeply and decreases when blowing air out. Seems to be more than normal. Is concerned. Patient's EKG is unremarkable of this sinus tachycardia heart rate 1:30 on EKG performed by EMS. Patient is requesting to be transferred to [facility] upon completion of a medical screening exam. Patient states he was advised to come to the hospital if chest pain increased or worsened and that he would prefer to be seen at [facility]. But is agreeable to a medical screening exam in the emergency department. Patient states that he has recently had 3 negative mcnulty virus testing. We will do medical evaluation treatment is needed Timing/Duration: changing over time Severity/Quality: moderate Location: central Activities at Onset: none Prior CP/Workup: other (recent CT scan stated pericardial effusion.) Modifying Factors: improves with breathing ASA po EVENT AV OPERATOR: Yes NTG SL EVENT AV OPERATOR: No Allergies and Home Medications Allergies Coded Allergies: No Known Drug Allergies (Unverified , 09/05/18) Home Medications Albuterol Sulfate 1 Puff Puff, 2 PUFF IH Q4H PRN for SHORTNESS OF BREATH, (Reported) 1 PUFF = 90 MCG Allopurinol 100 Mg Tablet, 100 MG PO DAILY, (Reported) LAST FILLED #30 05-19-19 Atorvastatin Calcium 20 Mg Tablet, 20 MG PO DAILY, (Reported) LAST FILLED #30 05-19-19 Budesonide/Formoterol Fumarate 10.2 Gm Hfa.aer.ad, 2 PUFF IH BID, (Reported) LAST FILLED #1 05-18-19 D-Methorphan/Acetamin/Doxylamn 236 Ml Liquid, 30 ML PO Q6H PRN for COUGH, (Reported) Dextromethorphan Polistirex 30 Mg/5 Ml Siria.er.12h, 10 ML PO Q12H PRN for COUGH, (Reported) Doxycycline Hyclate 100 Mg Tablet, 100 MG PO BID Prescribed by: JAVAN ROLAND on 03/06/202317 Magnesium Oxide 400 Mg Tablet, 400 MG PO DAILY, (Reported) Multivitamin 1 Each Tablet, 1 TAB PO DAILY, (Reported) Naproxen Sodium 220 Mg Tablet, 440 MG PO Q8H PRN for PAIN-MILD (1-4), (Reported) Prednisone 20 Mg Tab, 40 MG PO DAILY Prescribed by: JAVAN ROLAND on 03/06/202317 Saw/Vit E/Sod Cinthia/Lyc/Beta/Pyg 1 Each Tablet, 1 TAB PO DAILY, (Reported) Sildenafil Citrate 100 Mg Tablet, 100 MG PO DAILY PRN for ED, (Reported) Tamsulosin HCl 0.4 Mg Cap, 0.4 MG PO DAILY, (Reported) LAST FILLED #30 05-19-19 Patient Home Medication List Home Medication List Reviewed: Yes Review of Systems Review of Systems Constitutional: No no symptoms reported; see HPI; No chills, No diaphoresis, No dizziness, No fever, No malaise, No weakness, No weight gain, No weight loss, No other EENTM: No No Symptoms Reported, No See HPI, No Blurred Vision, No Double Vision, No Eye Pain, No Eye Tearing, No Ear Drainage, No Ear Pain, No Mouth Pain, No Mouth Swelling, No Nose Congestion, No Nose Pain, No Throat Pain, No Throat Swelling, No Other Respiratory: Denies No Symptoms Reported; See HPI; Denies Cough, Denies Orthopnea, Denies Shortness of Air, Denies SOA With Exertion, Denies SOA at Rest, Denies Stridor, Denies Wheezing, Denies Other Cardiovascular: Denies No Symptoms Reported; See HPI, Chest Pain; Denies Edema, Denies Irregular Heart Rate, Denies Lightheadedness, Denies Palpitations, Denies Syncope, Denies Other Gastrointestinal: Denies No Symptoms Reported, Denies See HPI, Denies Abdomen Distended, Denies Abdominal Pain, Denies Blood Streaked Stools, Denies Constipated, Denies Diarrhea, Denies Difficulty Swallowing, Denies Nausea, Denies Poor Appetite, Denies Poor Fluid Intake, Denies Rectal Bleeding, Denies Vomiting, Denies Other Genitourinary: Denies No Symptoms Reported, Denies See HPI, Denies Burning, Denies Discharge, Denies Drainage, Denies Frequency, Denies Flank Pain, Denies Hematuria, Denies Incontinence, Denies Pain, Denies Urgency, Denies Other Musculoskeletal: No no symptoms reported, No see HPI, No back pain, No gout, No joint pain, No joint swelling, No muscle pain, No muscle stiffness, No muscle cramps, No muscle twitching, No muscle weakness, No neck pain, No other Skin: No no symptoms reported, No see HPI, No change in color, No change in hair/nails, No dryness, No hx of skin cancer, No lesions, No lumps, No pruritus, No rash, No other All Other Systems Reviewed Negative Unless Noted: Yes Past Kzuqzkn-Tseqrw-Dhbabi Hx Patient Social History Type Used: Cigarettes 2nd Hand Smoke Exposure: No Recent Foreign Travel: No Contact w/Someone Who Travel: No Recent Hopitalizations: No Immunizations Up To Date Tetanus Booster (TDap): Unknown PED Vaccines UTD: No Date of Pneumonia Vaccine: May 02, 2020 Seasonal Allergies Seasonal Allergies: No Past Medical History Surgeries: Yes (Jaw Sx from fracture) Respiratory: Yes COPD Currently Using CPAP: No Currently Using BIPAP: No Cardiac: Yes High Cholesterol Neurological: No Reproductive Disorders: No Genitourinary: Yes Prostate Problems Gastrointestinal: No Musculoskeletal: No Gout Endocrine: No HEENT: No Loss of Vision: Denies Hearing Impairment: Denies Cancer: No Psychosocial: No Integumentary: No Blood Disorders: No Family Medical History Arthritis 19 MOTHER Cardiovascular disease 19 MOTHER Psychosocial problem 19 MOTHER Respiratory disorder 19 FATHER 19 MOTHER Heart Disease Physical Exam Vital Signs Vital Signs - First Documented 03/11/20 17:55 Temp 37.6 Pulse 130 Resp 22 B/P (MAP) 113/69 (84) Pulse Ox 95 O2 Delivery Nasal Cannula O2 Flow Rate 2.00 Capillary Refill : Height, Weight, BMI Height: 5'10.00" Weight: 205lbs. oz. 92.819647tv; 25.00 BMI Method:Stated General Appearance: No Apparent Distress, WD/WN Neck: Full Range of Motion, Normal Inspection, Non Tender Respiratory: Chest Non Tender, Lungs Clear, Normal Breath Sounds, No Accessory Muscle Use, No Respiratory Distress Cardiovascular: No Edema, No Gallop, No JVD, No Murmur, Normal Peripheral Pulses, Tachycardia Gastrointestinal: Normal Bowel Sounds, No Organomegaly, No Pulsatile Mass, Non Tender Skin: Normal Color, Warm/Dry Progress/Results/Core Measures Results/Orders Lab Results Laboratory Tests Test 03/11/20 18:10 Range/Units White Blood Count 19.9 H 4.3-11.0 10^3/uL Red Blood Count 4.14 L 4.35-5.85 10^6/uL Hemoglobin 12.1 L 13.3-17.7 G/DL Hematocrit 37 L 40-54 % Mean Corpuscular Volume 89 80-99 FL Mean Corpuscular Hemoglobin 29 25-34 PG Mean Corpuscular Hemoglobin Concent 33 32-36 G/DL Red Cell Distribution Width 14.9 H 10.0-14.5 % Platelet Count 622 H 130-400 10^3/uL Mean Platelet Volume 8.8 7.4-10.4 FL Neutrophils (%) (Auto) 73 42-75 % Lymphocytes (%) (Auto) 16 12-44 % Monocytes (%) (Auto) 9 0-12 % Eosinophils (%) (Auto) 1 0-10 % Basophils (%) (Auto) 0 0-10 % Neutrophils # (Auto) 14.5 H 1.8-7.8 X 10^3 Lymphocytes # (Auto) 3.2 1.0-4.0 X 10^3 Monocytes # (Auto) 1.8 H 0.0-1.0 X 10^3 Eosinophils # (Auto) 0.2 0.0-0.3 10^3/uL Basophils # (Auto) 0.1 0.0-0.1 10^3/uL Neutrophils % (Manual) 75 % Lymphocytes % (Manual) 13 % Monocytes % (Manual) 9 % Eosinophils % (Manual) 0 % Basophils % (Manual) 0 % Metamyelocytes % 0 % Myelocytes % 1 % Band Neutrophils 2 % Prothrombin Time 13.8 12.2-14.7 SEC INR Comment 1.0 0.8-1.4 Sodium Level 134 L 135-145 MMOL/L Potassium Level 4.1 3.6-5.0 MMOL/L Chloride Level 99 98-107 MMOL/L Carbon Dioxide Level 24 21-32 MMOL/L Anion Gap 11 5-14 MMOL/L Blood Urea Nitrogen 13 7-18 MG/DL Creatinine 0.70 0.60-1.30 MG/DL Estimat Glomerular Filtration Rate > 60 BUN/Creatinine Ratio 19 Glucose Level 130 H 70-105 MG/DL Calcium Level 8.6 8.5-10.1 MG/DL Corrected Calcium 9.2 8.5-10.1 MG/DL Total Bilirubin 0.3 0.1-1.0 MG/DL Aspartate Amino Transf (AST/SGOT) 17 5-34 U/L Alanine Aminotransferase (ALT/SGPT) 24 0-55 U/L Alkaline Phosphatase 173 H 40-136 U/L Troponin I < 0.30 <0.30 NG/ML Pro-B-Type Natriuretic Peptide 208.6 H <75.0 PG/ML Total Protein 6.7 6.4-8.2 GM/DL Albumin 3.2 3.2-4.5 GM/DL My Orders Orders - VANDANA VARELA MD Ed Iv/Invasive Line Start (03/11/20 18:02) Comprehensive Metabolic Panel (03/11/20 18:02) Cbc With Automated Diff (03/11/20 18:02) Ekg Tracing (03/11/20 18:02) Troponin I Fs (03/11/20 18:02) Probnp Fs (03/11/20 18:02) Protime With Inr (03/11/20 18:02) Chest 1 View Ap/Pa Only (03/11/20 18:02) Morphine Injection (Morphine Injection (03/11/20 18:02) Ondansetron Injection (Zofran Injectio (03/11/20 18:15) Manual Differential (03/11/20 18:10) Blood Culture (03/11/20 19:15) Vancomycin Injection (Vancomycin Injecti (03/11/20 19:15) Blood Culture (03/11/20 19:33) Medications Given in ED Current Medications Medications Dose Ordered Sig/Cami Route Start Time Stop Time Status Last Admin Dose Admin Ondansetron HCl 4 mg ONCE ONCE IVP 03/11/20 18:15 03/11/20 18:16 DC 03/11/20 18:26 4 MG Vancomycin HCl 1000 mg/Sodium Chloride 250 ml @ 250 mls/hr ONCE ONCE IV 03/11/20 19:15 03/11/20 20:14 DC 03/11/20 19:38 250 MLS/HR Vital Signs/I&O 03/11/20 17:55 Temp 37.6 Pulse 130 Resp 22 B/P (MAP) 113/69 (84) Pulse Ox 95 O2 Delivery Nasal Cannula O2 Flow Rate 2.00 Progress Progress Note : Time: 18:[address] Chest 02/28/2020 There is a pericardial effusion measuring at least 2 cm in thickness. CXR 02/28/2020 Neg Chest Xray CXR today visit IMPRESSION: There is a questionable small left pleural effusion. Lateral view would be helpful for further evaluation. Patient has elevated white count of 19,000. Patient has had 3 negative mcnulty test. We will draw all blood cultures and give patient 1 g of vancomycin. Discussed at length with [facility] transfer center. Patient be transferred to [facility] per his request accepted by Dr. Mayers. Initial ECG Impression Date: Mar 11, 2020 Initial ECG Impression Time: 17:57 Initial ECG Rate: 128 Initial ECG Rhythm: S.Tach Initial ECG Impression: Normal Departure Impression Primary Impression: Chest pain Additional Impressions: Pericardial effusion Pleural effusion Leukocytosis Disposition: XF T-[facility] Condition: Stable Transfer Transfer Reason: Exceeds level of care Time Spoke to Accepting Phy: 19:[address] Mayers Transfer Time: 19:33 Transfer Facility: [facility] Method of Transfer: EMS Departure-Patient Inst. Decision time for Depature: 20:22 Referrals: ARACELI JOHNSON MD (PCP/Family) Primary Care Physician VANDANA VARELA MD Mar 11, 2020 18:13
[2020-03-11] MEDS ORDERED: ONDANSETRON 4 MG/2 ML (SDV) Z0FRAN IVP ONE (18:15)
--- NOTE | 2020-03-11 18:19 | Diagnostic Imaging Report ---
INDICATION: Chest pain and fever. COMPARISON STUDY: Chest from March 06. FINDINGS: Frontal view of the chest demonstrates the lungs to be clear. The heart, mediastinum, and pulmonary vascularity are normal. There is mild blunting of the left costophrenic angle. IMPRESSION: There is a questionable small left pleural effusion. Lateral view would be helpful for further evaluation. Dictated by: Dictated on workstation # [id number]
[2020-03-11 18:21] LABS: BASOPHILS % (AUTO) 0 % (0-10); EOSINOPHILS % (AUTO) 1 % (0-10); HEMATOCRIT 37 % (40-54); HEMOGLOBIN 12.1 G/DL (13.3-17.7); LYMPHOCYTES % (AUTO) 16 % (12-44); MEAN CORPUSCULAR HEMOGLOBIN 29 PG (25-34); MEAN CORPUSCULAR HGB CONC 33 G/DL (32-36); MEAN CORPUSCULAR VOLUME 89 FL (80-99); MEAN PLATELET VOLUME 8.8 FL (7.4-10.4); MONOCYTES % (AUTO) 9 % (0-12); NEUTROPHILS # (AUTO) 14.5 X 10^3 (1.8-7.8); NEUTROPHILS % (AUTO) 73 % (42-75); PLATELET COUNT 622 10^3/uL (130-400); WHITE BLOOD COUNT 19.9 10^3/uL (4.3-11.0)
[2020-03-11 18:22] LABS: BASOPHILS # (AUTO) 0.1 10^3/uL (0.0-0.1); EOSINOPHILS # (AUTO) 0.2 10^3/uL (0.0-0.3); LYMPHOCYTES # (AUTO) 3.2 X 10^3 (1.0-4.0); MONOCYTES # (AUTO) 1.8 X 10^3 (0.0-1.0)
[2020-03-11 18:37] LABS: PROTHROMBIN TIME PATIENT 13.8 SEC (12.2-14.7)
[2020-03-11 18:38] LABS: BAND NEUTROPHILS 2 %; BASOPHILS % (MANUAL) 0 %; EOSINOPHILS % (MANUAL) 0 %; LYMPHOCYTES % (MANUAL) 13 %; METAMYELOCYTES % 0 %; MONOCYTES % (MANUAL) 9 %; MYELOCYTES % 1 %; NEUTROPHILS % (MANUAL) 75 %
[2020-03-11 18:55] LABS: ALANINE AMINOTRANSFERASE 24 U/L (0-55); ALKALINE PHOSPHATASE 173 U/L (40-136); BILIRUBIN,TOTAL 0.3 MG/DL (0.1-1.0); BUN/CREATININE RATIO 19; CALCIUM 8.6 MG/DL (8.5-10.1); CARBON DIOXIDE 24 MMOL/L (21-32); CHLORIDE 99 MMOL/L (98-107); GFR ESTIMATED > 60; GLUCOSE 130 MG/DL (70-105); POTASSIUM 4.1 MMOL/L (3.6-5.0); SODIUM 134 MMOL/L (135-145)
[2020-03-11 18:56] LABS: ALBUMIN 3.2 GM/DL (3.2-4.5); TOTAL PROTEIN 6.7 GM/DL (6.4-8.2)
[2020-03-11] MEDS ORDERED: VANCOMYCIN INJECTION 1,000 MG in NS (IVPB) 250 ML IV ONE (19:15)
[2020-03-11 21:51] VITALS: BP 132/79
== END 2020-03-11 21:51 | disposition short-term general hospital (02) ==
LOC: EDUNIT# 17:50 → ER FS 17:51
DX: R07.9 Chest pain, unspecified (principal); I31.3 Pericardial effusion (noninflammatory); J90 Pleural effusion, not elsewhere classified; D72.829 Elevated white blood cell count, unspecified; E78.00 Pure hypercholesterolemia, unspecified; M10.9 Gout, unspecified; J44.9 Chronic obstructive pulmonary disease, unspecified; Z82.49 Family history of ischemic heart disease and other diseases of the circulatory system; Z79.52 Long term (current) use of systemic steroids
CPT/HCPCS: 36415; 71045; 80053; 83880; 84484; 85007; 85027; 85610; 87040

== ENCOUNTER 2021-10-26 11:51 | Inpatient (IN) | payer MEDICARE ==
[~2021-10-26] VITALS: Ht 177.8 cm; Wt 94.2 kg
[2021-10-26] MEDS ORDERED: morphine INJ 10 MG/ML 1ML (SYR OR VIAL) IVP STA ×2 (12:43→15:17)
[2021-10-26] MEDS ORDERED: NS IV 1000 ML 1,000 ML IV SCH (12:45)
[2021-10-26] MEDS ORDERED: ONDANSETRON 4 MG/2 ML (SDV) Z0FRAN IVP ONE (12:45)
--- NOTE | 2021-10-26 12:50 | ED GU-Male ---
General Chief Complaint: Rect Problems Stated Complaint: RECTAL ABCESS Nursing Triage Note: Patient reports he has a diagnosed pericardial effusion, [facility]. States he has had ongoing chest pain since discharge, states his pain worsened tonight and he developed a low grade fever of 100.5 with shortness of breath. He states he has had 3 negative COVID tests since this past Saturday. Source: patient, family Exam Limitations: no limitations History of Present Illness Date Seen by Provider: Oct 26, 2021 Time Seen by Provider: 12:36 Initial Comments Patient is a 55-year-old male who presents to the emergency department with a chief complaint rectal and buttock pain for 1 week. Patient states symptoms started last Saturday, he states he felt like he got "kicked in the rectum". 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 He started feeling generalized malaise and weakness over the weekend with a steady decline in appetite. Started running a low-grade fever. Went to [facility] alk-in clinic and was started on some antibiotics, Bactrim. He had a CT of the pelvis with IV contrast yesterday which showed "marked inflammation involving the pelvic floor and extensive area of indurated tissue along the posterior pelvic floor at the distalmost anal canal and anal sphincter region. It appears to represent an area of phlegmon formation with multiple loculations. A more well-defined abscess cavity appears to be slowly developing although the peripheral margins are not yet well-defined. No evidence of intra-abdominal or retroperitoneal extension." This as from the [facility] clinic, radiology interpretation. Patient continues to feel poorly. Significant pain in the perineum. Hydrocodone that he was given is not helping his pain. He has a history of COPD, smoking. Not a diabetic. He is not currently really having any bowel movements because his appetite is still poor. He states he is urinating fairly normally. He has been taking Bactrim since Saturday. All other review of systems reviewed and negative except as stated. Timing/Duration: week, getting worse Severity/Quality: moderate Location: other (rectal) Activities at Onset: other (normal work) Modifying Factors: Worsens With Movement Associated Symptoms: fever/chills, nausea/vomiting, other (decreased appetite) Allergies and Home Medications Allergies Coded Allergies: No Known Drug Allergies (Unverified , 10/26/21) Patient Home Medication List Home Medication List Reviewed: Yes Albuterol Sulfate (Proair Hfa) 1 Puff Puff, 2 PUFF IH Q4H PRN for SHORTNESS OF BREATH, (Reported) Entered as Reported by: MISHEL PATRICIA on 07/02/191457 Allopurinol (Allopurinol) 100 Mg Tablet, 100 MG PO DAILY, (Reported) Entered as Reported by: MISHEL PATRICIA on 07/02/191457 Atorvastatin Calcium (Lipitor) 20 Mg Tablet, 20 MG PO DAILY, (Reported) Entered as Reported by: MISHEL PATRICIA on 07/02/191457 Budesonide/Formoterol Fumarate (Symbicort 160-4.5 Mcg Inhaler) 10.2 Gm Hfa.aer.ad, 2 PUFF IH BID, (Reported) Entered as Reported by: MISHEL PATRICIA on 07/02/191457 D-Methorphan/Acetamin/Doxylamn (Vicks Nyquil Cold & Flu Liquid) 236 Ml Liquid, 30 ML PO Q6H PRN for COUGH, (Reported) Entered as Reported by: MISHEL PATRICIA on 07/02/191457 Dextromethorphan Polistirex (Delsym) 30 Mg/5 Ml Siria.er.12h, 10 ML PO Q12H PRN for COUGH, (Reported) Entered as Reported by: MISHEL PATRICIA on 07/02/191457 Doxycycline Hyclate (Doxycycline Hyclate) 100 Mg Tablet, 100 MG PO BID Prescribed by: JAVAN ROLAND on 03/06/202317 Magnesium Oxide (Magnesium) 400 Mg Tablet, 400 MG PO DAILY, (Reported) Entered as Reported by: MISHEL PATRICIA on 07/02/191457 Multivitamin (Multivitamins) 1 Each Tablet, 1 TAB PO DAILY, (Reported) Entered as Reported by: MISHEL PATRICIA on 07/02/191457 Naproxen Sodium (Aleve) 220 Mg Tablet, 440 MG PO Q8H PRN for PAIN-MILD (1-4), (Reported) Entered as Reported by: MISHEL PATRICIA on 07/02/191457 Prednisone (Prednisone) 20 Mg Tab, 40 MG PO DAILY Prescribed by: JAVAN ROLAND on 9/6/20 2318 Saw/Vit E/Sod Cinthia/Lyc/Beta/Pyg (Prostate Health Caplet) 1 Each Tablet, 1 TAB PO DAILY, (Reported) Entered as Reported by: MISHEL PATRICIA on 07/02/19 145 Sildenafil Citrate (Viagra) 100 Mg Tablet, 100 MG PO DAILY PRN for ED, (Reported) Entered as Reported by: MISHEL PATRICIA on 07/02/19 145 Tamsulosin HCl (Flomax) 0.4 Mg Cap, 0.4 MG PO DAILY, (Reported) Entered as Reported by: MISEHL PATRICIA on 07/02/191457 Review of Systems Review of Systems Constitutional: see HPI EENTM: no symptoms reported Respiratory: no symptoms reported Cardiovascular: no symptoms reported Gastrointestinal: abdominal pain Genitourinary: other (decreased appetite) Musculoskeletal: no symptoms reported Skin: no symptoms reported Psychiatric/Neurological: Anxiety All Other Systemes Reviewed Negative Unless Noted: Yes Past Qidxqlw-Yvrqxv-Szymiq Hx Patient Social History Tobacco Use?: Yes Tobacco type used: Cigarettes Smoking Status: Current Everyday Smoker Substance use?: Yes Substance type: Marijuana Substance frequency: Rarely Alcohol Use?: Yes Alcohol Frequency: Rarely Pt feels they are or have been: No Immunizations Up To Date Tetanus Booster (TDap): Unknown PED Vaccines UTD: No Seasonal Allergies Seasonal Allergies: No Past Medical History Surgeries: Yes (Jaw Sx from fracture) Respiratory: Yes COPD Currently Using CPAP: No Currently Using BIPAP: No Cardiac: Yes High Cholesterol Neurological: No Reproductive Disorders: No Genitourinary: Yes Prostate Problems Gastrointestinal: No Musculoskeletal: No Gout Endocrine: No HEENT: No Loss of Vision: Denies Hearing Impairment: Denies Cancer: No Psychosocial: No Integumentary: No Blood Disorders: No Family Medical History Arthritis 19 MOTHER Cardiovascular disease 19 MOTHER Psychosocial problem 19 MOTHER Respiratory disorder 19 FATHER 19 MOTHER Heart Disease Physical Exam Vital Signs Vital Signs - First Documented 10/26/21 12:17 Temp 36.7 Pulse 125 Resp 18 B/P (MAP) 104/61 (75) Pulse Ox 97 O2 Delivery Room Air Capillary Refill : Less Than 3 Seconds Height, Weight, BMI Height: 5'10.00" Weight: 205lbs. oz. 92.212794wg; 29.00 BMI Method:Stated General Appearance: WD/WN, mild distress (anxious) HEENT: PERRL/EOMI, other (dry oral mucosa) Neck: normal inspection Cardiovascular: regular rate, rhythm (tachy 112) Respiratory: no respiratory distress, no accessory muscle use, wheezing (Scattered scant expiratory wheezes) Gastrointestinal: normal bowel sounds, non tender, soft Extremities: normal range of motion, no pedal edema Neurologic/Psychiatric: alert, oriented x 3, other (anxious) Skin: normal color, warm/dry Focused Exam Lactate Level 10/26/21 12:50: Lactic Acid Level 1.32 Lactic Acid Level Laboratory Tests Test 10/26/21 12:50 Lactic Acid Level 1.32 MMOL/L (0.50-2.00) Progress/Results/Core Measures Suspected Sepsis SIRS Temperature: Pulse: 118 Respiratory Rate: 30 Laboratory Tests 10/26/21 12:39: White Blood Count 29.9H Blood Pressure 132 /79 Mean: 84 10/26/21 12:50: Lactic Acid Level 1.32 Laboratory Tests 10/26/21 12:39: Creatinine 0.99, INR Comment 1.1, Platelet Count 407H, Total Bilirubin 0.6 Results/Orders Lab Results Laboratory Tests Test 10/26/21 12:39 10/26/21 12:50 Range/Units White Blood Count 29.9 H 4.3-11.0 10^3/uL Red Blood Count 4.53 4.30-5.52 10^6/uL Hemoglobin 11.8 L 13.3-17.7 g/dL Hematocrit 37 L 40-54 % Mean Corpuscular Volume 81 80-99 fL Mean Corpuscular Hemoglobin 26 25-34 pg Mean Corpuscular Hemoglobin Concent 32 32-36 g/dL Red Cell Distribution Width 16.8 H 10.0-14.5 % Platelet Count 407 H 130-400 10^3/uL Mean Platelet Volume 9.2 9.0-12.2 fL Immature Granulocyte % (Auto) 1 % Neutrophils (%) (Auto) 81 H 42-75 % Lymphocytes (%) (Auto) 8 L 12-44 % Monocytes (%) (Auto) 9 0-12 % Eosinophils (%) (Auto) 0 0-10 % Basophils (%) (Auto) 0 0-10 % Neutrophils # (Auto) 24.2 H 1.8-7.8 10^3/uL Lymphocytes # (Auto) 2.4 1.0-4.0 10^3/uL Monocytes # (Auto) 2.8 H 0.0-1.0 10^3/uL Eosinophils # (Auto) 0.0 0.0-0.3 10^3/uL Basophils # (Auto) 0.1 0.0-0.1 10^3/uL Immature Granulocyte # (Auto) 0.4 H 0.0-0.1 10^3/uL Neutrophils % (Manual) 82 % Lymphocytes % (Manual) 9 % Monocytes % (Manual) 5 % Band Neutrophils 4 % Microcytosis SLIGHT Swan Cells MODERATE Elliptocytes SLIGHT Prothrombin Time 14.6 12.2-14.7 SEC INR Comment 1.1 0.8-1.4 Activated Partial Thromboplast Time 33 24-35 SEC Sodium Level 131 L 135-145 MMOL/L Potassium Level 3.9 3.6-5.0 MMOL/L Chloride Level 95 L 98-107 MMOL/L Carbon Dioxide Level 21 21-32 MMOL/L Anion Gap 15 H 5-14 MMOL/L Blood Urea Nitrogen 20 H 7-18 MG/DL Creatinine 0.99 0.60-1.30 MG/DL Estimat Glomerular Filtration Rate 91 BUN/Creatinine Ratio 20 Glucose Level 123 H 70-105 MG/DL Calcium Level 8.7 8.5-10.1 MG/DL Corrected Calcium 8.9 8.5-10.1 MG/DL Total Bilirubin 0.6 0.1-1.0 MG/DL Aspartate Amino Transf (AST/SGOT) 18 5-34 U/L Alanine Aminotransferase (ALT/SGPT) 15 0-55 U/L Alkaline Phosphatase 104 40-136 U/L Total Protein 6.8 6.4-8.2 GM/DL Albumin 3.7 3.2-4.5 GM/DL Lactic Acid Level 1.32 0.50-2.00 MMOL/L My Orders Orders - NEGAR SAWYER MD Cbc With Automated Diff (10/26/21 12:43) Comprehensive Metabolic Panel (10/26/21 12:43) Blood Culture (10/26/21 12:43) Sputum Culture (10/26/21 12:43) Urinalysis (10/26/21 12:43) Urine Culture (10/26/21 12:43) Protime With Inr (10/26/21 12:43) Partial Thromboplastin Time (10/26/21 12:43) Chest 1 View, Ap/Pa Only (10/26/21 12:43) Ed Iv/Invasive Line Start (10/26/21 12:43) Ed Iv/Invasive Line Start (10/26/21 12:43) Vital Signs Adult Sepsis Patie Q15M (10/26/21 12:43) O2 (10/26/21 12:43) Remove Rings In Anticipation O (10/26/21 12:43) Lactic Acid Analyzer (10/26/21 12:43) Ns Iv 1000 Ml (Sodium Chloride 0.9%) (10/26/21 12:45) Morphine Injection (Morphine Injection (10/26/21 12:43) Ondansetron Injection (Zofran Injectio (10/26/21 12:45) Manual Differential (10/26/21 12:39) Ct Abdomen/Pelvis W (10/26/21 13:24) Piperacillin Sodium/Tazobactam (Zosyn Vi (10/26/21 13:30) Metronidazole 500mg/100ml Ivpb (Flagyl 5 (10/26/21 13:30) Iohexol Injection (Omnipaque 350 Mg/Ml 1 (10/26/21 13:30) Received Contrast (Hold Metformin- Contr (10/26/21 13:30) Sodium Chloride Flush (Catheter Flush Sy (10/26/21 13:30) Ns (Ivpb) (Sodium Chloride 0.9% Ivpb Bag (10/26/21 13:30) Morphine Injection (Morphine Injection (10/26/21 14:53) Morphine Injection (Morphine Injection (10/26/21 15:17) Medications Given in ED Vital Signs/I&O 10/26/21 12:17 Temp 36.7 Pulse 125 Resp 18 B/P (MAP) 104/61 (75) Pulse Ox 97 O2 Delivery Room Air 10/26/21 23:59 Intake Total 1100 ml Balance 1100 ml Capillary Refill : Less Than 3 Seconds Blood Pressure Mean: 84 Progress Note : Time: 13:26 Progress Note Patient is rectal exam performed, he has significant pain on digital rectal exam. No fluctuance is palpated inside the vault. He has significant induration at the gluteal cleft just to the left of the rectum and into the buttock. No overlying erythema or fluctuance in the skin. Very tender buttock to palpation. I discussed the case with Dr. Bowen on for general surgery recommends repeating the CT with IV contrast. Anjum and Osman. Would like the patient admitted to the medicine service. Diagnostic Imaging Diagonstic Imaging: Xray Comments [facility], [place] NAME: [facility] REC#: [id number] PT STATUS: REG ER : 1965 PHYSICIAN: NEGAR SAWYER MD ADMIT DATE: 10/26/21/ER Draft Date of Exam:10/26/21 CHEST 1 VIEW, AP/PA ONLY INDICATION: Rectal abscess. TIME OF EXAM: 1:09 p.m. COMPARISON: Correlation is made with prior chest from 03/11/2020. FINDINGS: The heart size is normal. The pulmonary vascularity is unremarkable. The lungs are clear. No infiltrate, effusion or pneumothorax is detected. IMPRESSION: No acute cardiopulmonary process is detected. Dictated on workstation # [id number] Dict: 10/26/21 1310 Trans: 10/26/21 1313 [id number] Interpreted by: KIKE HUERTA MD Electronically signed by: Diagonstic Imaging: CT Comments [facility], [place] NAME: [facility] REC#: [id number] PT STATUS: REG ER : 1965 PHYSICIAN: NEGAR SAWYER MD ADMIT DATE: 10/26/21/ER Draft Date of Exam:10/26/21 CT ABDOMEN/PELVIS W EXAMINATION: CT abdomen and pelvis with intravenous contrast. TECHNIQUE: Multiple contiguous axial images were obtained through the abdomen and pelvis after the uneventful administration of intravenous contrast. All CT scans use one or more of the following dose optimizing techniques: Automated exposure control, MA and/or KvP adjustment based on patient size and exam type or iterative reconstruction. HISTORY: Severe rectal pain. COMPARISON: 07/03/2019. FINDINGS: Limited views of the lower thorax are unremarkable. The liver is normal without focal lesion. There is no biliary ductal dilation. Gallbladder is normal. Pancreas is normal. Spleen is normal. Adrenal glands are normal. The kidneys are normal. There is no hydronephrosis. Urinary bladder is normal. There is a low attenuating collection posterior to the anus measuring 6.1 x 5.2 cm. It directly abuts the distal anus. There is mild presacral stranding. No free fluid or air. No abdominal or pelvic lymphadenopathy. Aorta is normal in caliber without aneurysm. There are no suspicious osseous lesions. IMPRESSION: 1. Low attenuating collection posterior to the anus measuring 6.1 x 5.2 cm and directly abutting the distal anus. Primary concern is for a perianal abscess with possible fistulization. Dictated on workstation # [id number] Dict: 10/26/21 1408 Trans: 10/26/21 1414 [id number] Interpreted by: MARGIE MEDELLIN MD Electronically signed by: Departure Communication (Admissions) Time/Spoke to Admitting Phy: 15:[address] Marie Time/Spoke to Consulting Phy: 13:[address] Bowen Impression Primary Impression: Karis-rectal abscess Disposition: ADMITTED INPATIENT Condition: Stable Admissions Decision to Admit Reason: Admit from ER (General) Decision to Admit/Date: Oct 26, 2021 Time/Decision to Admit Time: 13:27 Departure-Patient Inst. Referrals: CATALINA MONTEZ MD (PCP/Family) Primary Care Physician NEGAR SAWYER MD Oct 26, 2021 12:49
[2021-10-26 12:51] LABS: BASOPHILS # (AUTO) 0.1 10^3/uL (0.0-0.1); BASOPHILS % (AUTO) 0 % (0-10); EOSINOPHILS % (AUTO) 0 % (0-10); HEMATOCRIT 37 % (40-54); HEMOGLOBIN 11.8 g/dL (13.3-17.7); LYMPHOCYTES # (AUTO) 2.4 10^3/uL (1.0-4.0); LYMPHOCYTES % (AUTO) 8 % (12-44); MEAN CORPUSCULAR HEMOGLOBIN 26 pg (25-34); MEAN CORPUSCULAR HGB CONC 32 g/dL (32-36); MEAN CORPUSCULAR VOLUME 81 fL (80-99); MEAN PLATELET VOLUME 9.2 fL (9.0-12.2); MONOCYTES # (AUTO) 2.8 10^3/uL (0.0-1.0); MONOCYTES % (AUTO) 9 % (0-12); NEUTROPHILS # (AUTO) 24.2 10^3/uL (1.8-7.8); NEUTROPHILS % (AUTO) 81 % (42-75); PLATELET COUNT 407 10^3/uL (130-400); WHITE BLOOD COUNT 29.9 10^3/uL (4.3-11.0)
[2021-10-26 12:57] LABS: ALBUMIN 3.7 GM/DL (3.2-4.5); INR 1.1 (0.8-1.4); POTASSIUM 3.9 MMOL/L (3.6-5.0); PROTHROMBIN TIME PATIENT 14.6 SEC (12.2-14.7)
[2021-10-26 12:58] LABS: CALCIUM 8.7 MG/DL (8.5-10.1)
[2021-10-26 12:59] LABS: TOTAL PROTEIN 6.8 GM/DL (6.4-8.2)
[2021-10-26 13:01] LABS: BILIRUBIN,TOTAL 0.6 MG/DL (0.1-1.0)
[2021-10-26 13:03] LABS: CREATININE SERUM 0.99 MG/DL (0.60-1.30)
--- NOTE | 2021-10-26 13:14 | Diagnostic Imaging Report ---
INDICATION: Rectal abscess. TIME OF EXAM: 1:09 p.m. COMPARISON: Correlation is made with prior chest from 03/11/2020. FINDINGS: The heart size is normal. The pulmonary vascularity is unremarkable. The lungs are clear. No infiltrate, effusion or pneumothorax is detected. IMPRESSION: No acute cardiopulmonary process is detected. Dictated by: Dictated on workstation # [id number]
[2021-10-26] MEDS ORDERED: CATHETER FLUSH 10 ML SYR IV PRN (13:30)
[2021-10-26] MEDS ORDERED: HOLD METFORMIN - RECEIVED CONTRAST 20 ML VIAL IV SCH (13:30)
[2021-10-26] MEDS ORDERED: PIPERACILLIN SODIUM/TAZOBACTAM 4.5 GM in NS (IVPB) 100 ML IV ONE (13:30)
[2021-10-26] MEDS ORDERED: NS 100 ML (IVPB) BAG IV ONE (13:30)
[2021-10-26] MEDS ORDERED: IOHEXOL 350 MG/ML 100 ML (OMNIPAQUE 350) VIAL IV ONE (13:30)
[2021-10-26] MEDS ORDERED: metroNIDAZOLE 500MG/100ML IVPB 100 ML IV ONE (13:30)
[2021-10-26 13:39] LABS: BAND NEUTROPHILS 4 %; LYMPHOCYTES % (MANUAL) 9 %; MICROCYTOSIS SLIGHT; MONOCYTES % (MANUAL) 5 %; NEUTROPHILS % (MANUAL) 82 %
[2021-10-26 13:40] LABS: BURR CELLS MODERATE; ELLIPT/OVALOCYTES SLIGHT
--- NOTE | 2021-10-26 14:15 | Diagnostic Imaging Report ---
EXAMINATION: CT abdomen and pelvis with intravenous contrast. TECHNIQUE: Multiple contiguous axial images were obtained through the abdomen and pelvis after the uneventful administration of intravenous contrast. All CT scans use one or more of the following dose optimizing techniques: Automated exposure control, MA and/or KvP adjustment based on patient size and exam type or iterative reconstruction. HISTORY: Severe rectal pain. COMPARISON: 07/03/2019. FINDINGS: Limited views of the lower thorax are unremarkable. The liver is normal without focal lesion. There is no biliary ductal dilation. Gallbladder is normal. Pancreas is normal. Spleen is normal. Adrenal glands are normal. The kidneys are normal. There is no hydronephrosis. Urinary bladder is normal. There is a low attenuating collection posterior to the anus measuring 6.1 x 5.2 cm. It directly abuts the distal anus. There is mild presacral stranding. No free fluid or air. No abdominal or pelvic lymphadenopathy. Aorta is normal in caliber without aneurysm. There are no suspicious osseous lesions. IMPRESSION: 1. Low attenuating collection posterior to the anus measuring 6.1 x 5.2 cm and directly abutting the distal anus. Primary concern is for a perianal abscess with possible fistulization. Dictated by: Dictated on workstation # [id number]
[2021-10-26] MEDS ORDERED: morphine INJ 10 MG/ML 1ML (SYR OR VIAL) ONE (14:53)
--- NOTE | 2021-10-26 15:32 | Consultation - Surgery ---
SILVIO VELEZ Isaiah 10/26/21 1532: History of Present Illness History of Present Illness Patient Consulted On(bebo/time) 10/26/21 15:26 Date Seen by Provider: Oct 26, 2021 Time Seen by Provider: 13:35 Reason for Visit: Perianal pain History of Present Illness Mr. Steiner is a 55 year old male with a past medical history of COPD, gout, and pericarditis who presented to the ED with a chief complaint of rectal pain. General surgery was consulted for a perirectal abscess. Patient reports his pain started around 1 week ago around his rectum. He says it feels like he was "kicked in the butt." He says the pain has been constant and has been progressively getting worse since it began. He describes the pain as sharp. Medicine given to him at the hospital makes it better; coughing, sitting, movement, or any pressure to the area makes it worse. He endorses associated fever, chills, nausea, and vomiting. He reports decreased appetite over the last week alongside generalized malaise. He denies radiation of the pain. He rates the severity of his pain as a 6/10 with medicine at the hospital but a 9/10 before he came in. He has been taking TMP-SMX for a week given to him from a walk-in clinic. CXR in the ED showed no acute process. CT scan showed a "low attenuating collection posterior to the anus measuring 6.1 x 5.2 cm and directly abutting the distal anus. Primary concern is for a perianal abscess with possible fistulization." Allergies and Home Medications Allergies Coded Allergies: No Known Drug Allergies (Unverified , 10/26/21) Patient Home Medication List Albuterol Sulfate (Proair Hfa) 1 Puff Puff, 2 PUFF IH Q4H PRN for SHORTNESS OF BREATH, (Reported) Entered as Reported by: MISHEL PATRICIA on 07/02/19 1458 Allopurinol (Allopurinol) 100 Mg Tablet, 100 MG PO DAILY, (Reported) Entered as Reported by: MISHEL PATRICIA on 07/02/19 1458 Atorvastatin Calcium (Lipitor) 20 Mg Tablet, 20 MG PO DAILY, (Reported) Entered as Reported by: MISHEL PATRICIA on 07/02/19 1458 Budesonide/Formoterol Fumarate (Symbicort 160-4.5 Mcg Inhaler) 10.2 Gm Hfa.aer.ad, 2 PUFF IH BID, (Reported) Entered as Reported by: MISHEL PATRICIA on 07/02/191457 D-Methorphan/Acetamin/Doxylamn (Vicks Nyquil Cold & Flu Liquid) 236 Ml Liquid, 30 ML PO Q6H PRN for COUGH, (Reported) Entered as Reported by: MISHEL PATRICIA on 07/02/191457 Dextromethorphan Polistirex (Delsym) 30 Mg/5 Ml Siria.er.12h, 10 ML PO Q12H PRN for COUGH, (Reported) Entered as Reported by: MISHEL PATRICIA on 07/02/191457 Doxycycline Hyclate (Doxycycline Hyclate) 100 Mg Tablet, 100 MG PO BID Prescribed by: JAVAN ROLAND on 03/06/202317 Magnesium Oxide (Magnesium) 400 Mg Tablet, 400 MG PO DAILY, (Reported) Entered as Reported by: MISHEL PATRICIA on 07/02/191457 Multivitamin (Multivitamins) 1 Each Tablet, 1 TAB PO DAILY, (Reported) Entered as Reported by: MISHEL PATRICIA on 07/02/191457 Naproxen Sodium (Aleve) 220 Mg Tablet, 440 MG PO Q8H PRN for PAIN-MILD (1-4), (Reported) Entered as Reported by: MISHEL PATRICIA on 07/02/191457 Prednisone (Prednisone) 20 Mg Tab, 40 MG PO DAILY Prescribed by: JAVAN ROLAND on 03/06/202317 Saw/Vit E/Sod Cinthia/Lyc/Beta/Pyg (Prostate Health Caplet) 1 Each Tablet, 1 TAB PO DAILY, (Reported) Entered as Reported by: MISHEL PATRICIA on 07/02/191457 Sildenafil Citrate (Viagra) 100 Mg Tablet, 100 MG PO DAILY PRN for ED, (Reported) Entered as Reported by: MISHEL PATRICIA on 07/02/191457 Tamsulosin HCl (Flomax) 0.4 Mg Cap, 0.4 MG PO DAILY, (Reported) Entered as Reported by: MISHEL PATRICIA on 07/02/191457 Past Jletfsw-Nfwgna-Lwbiwk Hx Patient Social History Smoking Status: Current Everyday Smoker (37 year history at 1/2 [facility]) Type Used: Cigarettes 2nd Hand Smoke Exposure: No Recent Hopitalizations: No Alcohol Use?: Yes Substance type: Marijuana Have you traveled recently?: No Immunizations Up To Date Tetanus Booster (TDap): Unknown PED Vaccines UTD: No Date of Pneumonia Vaccine: May 02, 2020 Seasonal Allergies Seasonal Allergies: No Surgeries History of Surgeries: Yes (Jaw Sx from fracture) Respiratory History of Respiratory Disorde: Yes Respiratory Disorders: COPD Cardiovascular History of Cardiac Disorders: Yes Cardiac Disorders: High Cholesterol Neurological History of Neurological Disord: No Reproductive System Hx Reproductive Disorders: No Genitourinary History of Genitourinary Disor: Yes Genitourinary Disorders: Prostate Problems Gastrointestinal History of Gastrointestinal Di: No Musculoskeletal History of Musculoskeletal Dis: No Musculoskeletal Disorders: Gout Endocrine History of Endocrine Disorders: No HEENT History of HEENT Disorders: No Loss of Vision: Denies Hearing Impairment: Denies Cancer History of Cancer: No Psychosocial History of Psychiatric Problem: No Integumentary History of Skin or Integumenta: No Blood Transfusions History of Blood Disorders: No Family Medical History Significant Family History: Heart Disease, Cancer (Mother, unsure of type), Lung Disease (Father, pulmonary fibrosis) Family Medial History: Arthritis 19 MOTHER Cardiovascular disease 19 MOTHER Psychosocial problem 19 MOTHER Respiratory disorder 19 FATHER 19 MOTHER Review of Systems-General Constitutional: chills, fever, malaise EENTM: No blurred vision, No double vision Respiratory: No cough, No dyspnea on exertion; short of breath Cardiovascular: No chest pain, No palpitations Gastrointestinal: abdominal pain, loss of appetite, nausea, vomiting Genitourinary: No dysuria, No frequency Musculoskeletal: No joint pain, No muscle pain Psychiatric/Neurological: Headache; Denies Numbness Physical Exam-General Problems Physical Exam Vital Signs Vital Signs - First Documented 10/26/21 12:17 Temp 36.7 Pulse 125 Resp 18 B/P (MAP) 104/61 (75) Pulse Ox 97 O2 Delivery Room Air Capillary Refill : Less Than 3 Seconds General Appearance: WD/WN, no apparent distress HEENT: PERRL/EOMI; No scleral icterus (R), No scleral icterus (L) Neck: non-tender, supple; No lymphadenopathy (R), No lymphadenopathy (L) Respiratory: chest non-tender, lungs clear, normal breath sounds, no respiratory distress, no accessory muscle use Cardiovascular: normal peripheral pulses, tachycardia, other (Distant heart sounds) Peripheral Pulses: 2+ Radial Pulses (R), 2+ Radial Pulses (L) Gastrointestinal: normal bowel sounds, soft, tenderness (Generalized tenderness to palpation) Rectal: No blood streaked stool, No heme positive stool; tenderness, other (Erythema around apex of gluteal cleft bilaterally. Exquisitely tender to p alpation along left and right buttocks, more on left.) Extremities: normal range of motion, no pedal edema, no calf tenderness Neurologic/Psychiatric: no motor/sensory deficits, alert, normal mood/affect, oriented x 3 Skin: normal color, warm/dry Lymphatic: no adenopathy (Head and neck) Data Review Labs Laboratory Tests 10/26/21 12:39: White Blood Count 29.9H, Red Blood Count 4.53, Hemoglobin 11.8L, Hematocrit 37L, Mean Corpuscular Volume 81, Mean Corpuscular Hemoglobin 26, Mean Corpuscular Hemoglobin Concent 32, Red Cell Distribution Width 16.8H, Platelet Count 407H, Mean Platelet Volume 9.2, Immature Granulocyte % (Auto) 1, Neutrophils (%) (Auto) 81H, Lymphocytes (%) (Auto) 8L, Monocytes (%) (Auto) 9, Eosinophils (%) (Auto) 0, Basophils (%) (Auto) 0, Neutrophils # (Auto) 24.2H, Lymphocytes # (Auto) 2.4, Monocytes # (Auto) 2.8H, Eosinophils # (Auto) 0.0, Basophils # (Auto) 0.1, Immature Granulocyte # (Auto) 0.4H, Neutrophils % (Manual) 82, Lym phocytes % (Manual) 9, Monocytes % (Manual) 5, Band Neutrophils 4, Microcytosis SLIGHT, Morales Cells MODERATE, Elliptocytes SLIGHT, Prothrombin Time 14.6, INR Comment 1.1, Activated Partial Thromboplast Time 33, Sodium Level 131L, Potass ium Level 3.9, Chloride Level 95L, Carbon Dioxide Level 21, Anion Gap 15H, Blood Urea Nitrogen 20H, Creatinine 0.99, Estimat Glomerular Filtration Rate 91, BUN/Creatinine Ratio 20, Glucose Level 123H, Calcium Level 8.7, Corrected Calcium 8.9, Total Bilirubin 0.6, Aspartate Amino Transf (AST/SGOT) 18, Alanine Aminotransferase (ALT/SGPT) 15, Alkaline Phosphatase 104, Total Protein 6.8, Albumin 3.7 10/26/21 12:50: Lactic Acid Level 1.32 Radiology Date of Exam:10/26/21 CT ABDOMEN/PELVIS W EXAMINATION: CT abdomen and pelvis with intravenous contrast. TECHNIQUE: Multiple contiguous axial images were obtained through the abdomen and pelvis after the uneventful administration of intravenous contrast. All CT scans use one or more of the following dose optimizing techniques: Automated exposure control, MA and/or KvP adjustment based on patient size and exam type or iterative reconstruction. HISTORY: Severe rectal pain. COMPARISON: 07/03/2019. FINDINGS: Limited views of the lower thorax are unremarkable. The liver is normal without focal lesion. There is no biliary ductal dilation. Gallbladder is normal. Pancreas is normal. Spleen is normal. Adrenal glands are normal. The kidneys are normal. There is no hydronephrosis. Urinary bladder is normal. There is a low attenuating collection posterior to the anus measuring 6.1 x 5.2 cm. It directly abuts the distal anus. There is mild presacral stranding. No free fluid or air. No abdominal or pelvic lymphadenopathy. Aorta is normal in caliber without aneurysm. There are no suspicious osseous lesions. IMPRESSION: 1. Low attenuating collection posterior to the anus measuring 6.1 x 5.2 cm and directly abutting the distal anus. Primary concern is for a perianal abscess with possible fistulization. Assessment/Plan Assessment/Plan Assessment/Plan Assessment: Perirectal pain Perirectal abscess - CT showed low attenuating collection posterior to the anus measuring 6.1x 5.2 cm and directly abutting the distal anus Leukocytosis - WBC count 29.9 on admission - Marked neutrophilia Hyponatremia - 131 on admission Anemia - 11.8 on admission Gout h/o Pericarditis HLD Plan: Performed I&D on perirectal abscess Sent for cultures of abscess fluid. Packed with iodoform dressing Dressing changes daily and PRN Continue Pip/tazo and metronidazole for coverage Continue IVF Admit to hospital. Monitor labs MEGHANN PARHAM DO 10/26/21 7022: History of Present Illness History of Present Illness History of Present Illness Consult requested for perirectal abscess. Patient is a 55 vishal old male in emergency department for 1 week has has pain around his rectum. Feels like was kicked in the butt, sharp, constant pain. No radiation of pain. Pain 9/10. Has been taking bactrim without improvement. Patient had ct scan showing presacral inflamation and perirectal abscess extend ing down to the anus Allergies and Home Medications Allergies Coded Allergies: No Known Drug Allergies (Unverified , 10/26/21) Patient Home Medication List Home Medication List Reviewed: Yes Albuterol Sulfate (Proair Hfa) 1 Puff Puff, 2 PUFF IH Q4H PRN for SHORTNESS OF BREATH, (Reported) Entered as Reported by: MISHEL PATRICIA on 07/02/19 145 Allopurinol (Allopurinol) 100 Mg Tablet, 100 MG PO DAILY, (Reported) Entered as Reported by: MISHEL PATRICIA on 07/02/19 145 Atorvastatin Calcium (Lipitor) 20 Mg Tablet, 20 MG PO DAILY, (Reported) Entered as Reported by: MISHEL PATRICIA on 07/02/19 145 Budesonide/Formoterol Fumarate (Symbicort 160-4.5 Mcg Inhaler) 10.2 Gm Hfa.aer.ad, 2 PUFF IH BID, (Reported) Entered as Reported by: MISHEL PATRICIA on 07/02/19 145 D-Methorphan/Acetamin/Doxylamn (Vicks Nyquil Cold & Flu Liquid) 236 Ml Liquid, 30 ML PO Q6H PRN for COUGH, (Reported) Entered as Reported by: MISHEL PATRICIA on 07/02/19 145 Dextromethorphan Polistirex (Delsym) 30 Mg/5 Ml Siria.er.12h, 10 ML PO Q12H PRN for COUGH, (Reported) Entered as Reported by: MISHEL PATRICIA on 07/02/19 145 Doxycycline Hyclate (Doxycycline Hyclate) 100 Mg Tablet, 100 MG PO BID Prescribed by: JAVAN ROLAND on 03/06/20 0588 Magnesium Oxide (Magnesium) 400 Mg Tablet, 400 MG PO DAILY, (Reported) Entered as Reported by: MISHEL PATRICIA on 07/02/19 145 Multivitamin (Multivitamins) 1 Each Tablet, 1 TAB PO DAILY, (Reported) Entered as Reported by: MISHEL PATRICIA on 07/02/19 145 Naproxen Sodium (Aleve) 220 Mg Tablet, 440 MG PO Q8H PRN for PAIN-MILD (1-4), (Reported) Entered as Reported by: MISHEL PATRICIA on 07/02/191457 Prednisone (Prednisone) 20 Mg Tab, 40 MG PO DAILY Prescribed by: JAVAN ROLAND on 03/06/20 2312 Saw/Vit E/Sod Cinthia/Lyc/Beta/Pyg (Prostate Health Caplet) 1 Each Tablet, 1 TAB PO DAILY, (Reported) Entered as Reported by: MISHEL PATRICIA on 07/02/191457 Sildenafil Citrate (Viagra) 100 Mg Tablet, 100 MG PO DAILY PRN for ED, (Reported) Entered as Reported by: MISHEL PATRICIA on 07/02/19 145 Tamsulosin HCl (Flomax) 0.4 Mg Cap, 0.4 MG PO DAILY, (Reported) Entered as Reported by: MISHEL PATRICIA on 07/02/191457 Past Wbuaewq-Uvlqob-Ihtyjv Hx Patient Social History Smoking Status: Current Everyday Smoker (37 year history at 07/02 [facility]) Reviewed Nursing Assessment Reviewed/Agree w Nursing PMH: Yes Family Medical History Significant Family History: Heart Disease, Cancer (Mother, unsure of type), Esvin g Disease (Father, pulmonary fibrosis) Family Medial History: Arthritis 19 MOTHER Cardiovascular disease 19 MOTHER Psychosocial problem 19 MOTHER Respiratory disorder 19 FATHER 19 MOTHER Review of Systems-General Constitutional: chills, fever, malaise EENTM: No blurred vision, No double vision Respiratory: No cough, No dyspnea on exertion; short of breath Cardiovascular: No chest pain, No palpitations Gastrointestinal: loss of appetite, nausea, vomiting Genitourinary: No dysuria, No frequency Musculoskeletal: No joint pain, No muscle pain Skin: change in color (perianal cellulitis) Psychiatric/Neurological: Denies Anxiety, Denies Numbness All Other Systems Reviewed Negative Unless Noted: Yes (Negative excepted noted.) Physical Exam-General Problems Physical Exam General Appearance: WD/WN, mild distress HEENT: PERRL/EOMI, normal ENT inspection Neck: non-tender, supple Respiratory: chest non-tender, no respiratory distress, no accessory muscle use Cardiovascular: no JVD, tachycardia Gastrointestinal: non tender, soft Rectal: tenderness, other (Erythema around apex of gluteal cleft bilaterally. Exquisitely tender to palpation along left and right buttocks, more on left.) Extremities: non-tender, no pedal edema Neurologic/Psychiatric: no motor/sensory deficits, alert, normal mood/affect, oriented x 3 Skin: normal color, warm/dry Lymphatic: no adenopathy (Head and neck) Assessment/Plan Assessment/Plan Assessment/Plan Perirectal pain Perirectal abscess - CT showed presacral inflammation with abscess extending down to the anus measuring 6.1x 5.2 cm and directly abutting the distal anus Leukocytosis - WBC count 29.9 on admission - Marked neutrophilia Hyponatremia - 131 on admission Anemia - 11.8 on admission Gout h/o Pericarditis HLD Patient discussed risks and benefits of incision and drainage and wishes to proceed. Performed I&D on perirectal abscess at bedside large amount of purulent material evacuated up into the perirectal region Sent for cultures of abscess fluid. Packed irrigated and packed with iodoform dressing Dressing changes daily and PRN Continue Pip/tazo and metronidazole for coverage Continue IVF Admitted to hospital. Supervisory-Addendum Brief Verification & Attestation Participated in pt care: history, MDM, physical Personally performed: exam, history, MDM, supervision of care Care discussed with: Medical Student Procedures: performed (by me) Results interpretation: Verified all documentation Verification and Attestation of Medical Student E/M Service A medical student performed and documented this service in my presence. I reviewed and verified all information documented by the medical student and made modifications to such information, when appropriate. I personally performed the physical exam and medical decision making. Meghann Parham, Oct 26, 2021,18:50 SILVIO VELEZ Oct 26, 2021 15:32 MEGHANN PARHAM DO Oct 26, 2021 18:42
[2021-10-26 16:22] VITALS: BP 98/60
[2021-10-26] MEDS ORDERED: ONDANSETRON 4 MG/2 ML (SDV) Z0FRAN IV PRN (16:30)
[2021-10-26] MEDS ORDERED: CATHETER FLUSH 10 ML SYR IVP PRN (16:30)
[2021-10-26 16:59] VITALS: BP 104/61
[2021-10-26] MEDS: NS IV 1000 ML 1,000 ML IV SCH (17:22)
[2021-10-26 17:33] VITALS: BP 118/93
[2021-10-26] MEDS ORDERED: RT-ALBUTEROL SULF 2.5 MG/3 ML PRE-MIX VIAL INH PRN (19:00)
[2021-10-26 19:56] VITALS: BP 133/67
--- NOTE | 2021-10-26 20:36 | OPERATIVE REPORT ---
DATE OF SERVICE: 10/26/2021 PREOPERATIVE DIAGNOSIS: Perirectal abscess. POSTOPERATIVE DIAGNOSIS: Perirectal abscess. PROCEDURE: Incision and drainage of perirectal abscess. SURGEON: Meghann Bowen DO ANESTHESIA: Local anesthetic. ESTIMATED BLOOD LOSS: Minimal. COMPLICATIONS: None. INDICATIONS: The patient is a 55-year-old male who has been treated outpatient for perirectal cellulitis/abscess. The patient continued having increasing pain. He presented to the Emergency Department due to the increasing pain. The patient was found to have a perirectal abscess extending down all the way to the anus. He was discussed risks and benefits of procedure and wishes to proceed. Consent was signed in the chart. DESCRIPTION OF PROCEDURE: The patient was placed in left lateral recumbent position. He was prepped and draped in sterile fashion. Timeout was performed. There was left posterior perianal area of most fluctuance. Local anesthetic was infiltrated. A #11 blade scalpel was used to make a skin incision approximately 2 cm in length. The subcutaneous tissues then had to be continued to be divided with a hemostat, once dissecting down through the deeper subcutaneous tissues, a pocket of purulent material was found and a large amount of purulent material erupted, culture was obtained. A hemostat was then used to start to break up loculations, which were continued to be advanced all the way up into the perirectal region. Once all loculations were broken up again, a significant amount of purulent material was able to be evacuated. At this time, copious amounts of irrigation was used to irrigate the cavity and the wound was then packed with iodoform. The area was then washed and dried and sterile bandage was applied. The patient tolerated the procedure well without any complications. He is going to be admitted for IV antibiotics. Await cultures. He is currently on Zosyn and Flagyl. RECOMMENDATIONS: The patient will need daily wound care and pain control. Job ID: [id number] DocumentID: [id number] Dictated Date: 10/26/2021 18:56:07 Airline Dispatcher Date: 10/26/2021 20:36:26 Dictated By: MEGHANN BOWEN DO
[2021-10-26] MEDS: morphine INJ 4 MG/ML 1 ML (VIAL/SYRINGE) IV PRN (21:01)
[2021-10-26] MEDS: metroNIDAZOLE 500 MG/100 ML IVPB (PRE-MIX) IV SCH (22:11)
[2021-10-26] MEDS: PIPERACILLIN SODIUM/TAZOBACTAM 4.5 GM in NS (IVPB) 100 ML IV SCH (22:12)
[2021-10-26] MEDS: RT-ALBUTEROL SULF 2.5 MG/3 ML PRE-MIX VIAL INH SCH (22:20)
[2021-10-27] VITALS (7 sets, daily range): BP systolic 104–130; BP diastolic 57–70
[2021-10-27] MEDS: NS IV 1000 ML 1,000 ML IV SCH ×4 (00:31→21:22)
[2021-10-27] MEDS: RT-ALBUTEROL SULF 2.5 MG/3 ML PRE-MIX VIAL INH SCH ×2 (02:20→07:27)
[2021-10-27] MEDS: morphine INJ 4 MG/ML 1 ML (VIAL/SYRINGE) IV PRN ×5 (03:51→20:14)
[2021-10-27] MEDS: metroNIDAZOLE 500 MG/100 ML IVPB (PRE-MIX) IV SCH ×3 (05:24→21:36)
[2021-10-27] MEDS: PIPERACILLIN SODIUM/TAZOBACTAM 4.5 GM in NS (IVPB) 100 ML IV SCH ×3 (05:25→20:01)
[2021-10-27 05:51] LABS: BASOPHILS # (AUTO) 0.1 10^3/uL (0.0-0.1); BASOPHILS % (AUTO) 1 % (0-10); EOSINOPHILS % (AUTO) 0 % (0-10); HEMATOCRIT 30 % (40-54); HEMOGLOBIN 9.8 g/dL (13.3-17.7); LYMPHOCYTES # (AUTO) 2.3 10^3/uL (1.0-4.0); LYMPHOCYTES % (AUTO) 9 % (12-44); MEAN CORPUSCULAR HEMOGLOBIN 26 pg (25-34); MEAN CORPUSCULAR HGB CONC 32 g/dL (32-36); MEAN CORPUSCULAR VOLUME 81 fL (80-99); MEAN PLATELET VOLUME 9.4 fL (9.0-12.2); MONOCYTES # (AUTO) 2.2 10^3/uL (0.0-1.0); MONOCYTES % (AUTO) 9 % (0-12); NEUTROPHILS # (AUTO) 19.3 10^3/uL (1.8-7.8); NEUTROPHILS % (AUTO) 80 % (42-75); PLATELET COUNT 340 10^3/uL (130-400); WHITE BLOOD COUNT 24.2 10^3/uL (4.3-11.0)
--- NOTE | 2021-10-27 07:51 | Progress Note - Surgery ---
SILVIO VELEZ 10/27/21 0751: Subjective Date Seen by a Provider: Oct 27, 2021 Time Seen by a Provider: 07:15 Subjective/Events-last exam Mr. Steiner is 1 day s/p incision and drainage of perirectal abscess. This morning he still reports rectal pain but says it is much better than it was yesterday. He had several questions about the healing process, the procedure, and what his stay in the hospital will look like. His WBC and Hgb are trending down. Review of Systems General: Chills; No Fatigue; Other (Subjective fever overnight) HEENT: No Head Aches, No Visual Changes Pulmonary: No Dyspnea, No Cough Cardiovascular: No: Chest Pain, Palpitations Gastrointestinal: No: Nausea, Vomiting, Abdominal Pain Genitourinary: Other (Rectal pain) Neurological: No: Weakness, Confusion Focused Exam Lactate Level 10/26/21 12:50: Lactic Acid Level 1.32 Objective Exam Vital Signs Date Time Temp Pulse Resp B/P (MAP) Pulse Ox O2 Delivery O2 Flow Rate FiO2 10/27/21 07:30 94 Nasal Cannula 3.00 10/27/21 04:00 37.0 108 20 109/62 (78) 91 Nasal Cannula 2.00 10/27/21 02:20 98 Nasal Cannula 2.00 10/27/21 00:00 38.0 120 18 122/62 (82) 92 Nasal Cannula 2.00 10/26/21 22:20 97 Room Air 10/26/21 21:00 Room Air 10/26/21 19:56 36.6 114 18 133/67 (89) 91 Room Air 10/26/21 17:33 109 18 118/93 (101) 94 Room Air 10/26/21 16:59 36.7 125 97 21 10/26/21 16:30 94 Room Air 10/26/21 16:22 35.5 136 22 98/60 (73) 90 Room Air 10/26/21 16:10 108 18 112/64 98 Room Air 10/26/21 12:17 36.7 125 18 104/61 (75) 97 Room Air I & O 10/27/21 06:59 Intake Total 2210 ml Output Total 600 ml Balance 1610 ml Capillary Refill : Less Than 3 Seconds General Appearance: No Apparent Distress, WD/WN HEENT: PERRL/EOMI; No Scleral Icterus (L), No Scleral Icterus (R) Neck: Normal Inspection, Non Tender; No Lymphadenopathy (L), No Lymphadenopathy (R) Respiratory: Chest Non Tender, No Accessory Muscle Use, No Respiratory Distres s, Wheezing Cardiovascular: Regular Rate, Rhythm, No Edema, No Murmur, Normal Peripheral Pulses Peripheral Pulses: 2+ Radial Pulses (R), 2+ Radial Pulses (L) Gastrointestinal: normal bowel sounds, non tender, soft Extremity: Normal Capillary Refill, No Pedal Edema Neurologic/Psychiatric: Alert, Oriented x3, No Motor/Sensory Deficits, Normal Mood/Affect Skin: Normal Color, Other (Dressing over left buttocks. Incision is open with iodoform packing hanging out. Scant amount of purulent draiange. Overlying area with less tenderness and erythema.) Lymphatic: No Adenopathy (Head and neck) Results Lab Laboratory Tests 10/26/21 12:39: White Blood Count 29.9H, Red Blood Count 4.53, Hemoglobin 11.8L, Hematocrit 37L, Mean Corpuscular Volume 81, Mean Corpuscular Hemoglobin 26, Mean Corpuscular He moglobin Concent 32, Red Cell Distribution Width 16.8H, Platelet Count 407H, Mean Platelet Volume 9.2, Immature Granulocyte % (Auto) 1, Neutrophils (%) (Auto) 81H, Lymphocytes (%) (Auto) 8L, Monocytes (%) (Auto) 9, Eosinophils (%) (Auto) 0, Basophils (%) (Auto) 0, Neutrophils # (Auto) 24.2H, Lymphocytes # (Auto) 2.4, Monocytes # (Auto) 2.8H, Eosinophils # (Auto) 0.0, Basophils # (Aut o) 0.1, Immature Granulocyte # (Auto) 0.4H, Neutrophils % (Manual) 82, Lymphocytes % (Manual) 9, Monocytes % (Manual) 5, Band Neutrophils 4, Microcytosis SLIGHT, Morales Cells MODERATE, Elliptocytes SLIGHT, Prothrombin Time 14.6, INR Comment 1.1, Activated Partial Thromboplast Time 33, Sodium Level 131L , Potassium Level 3.9, Chloride Level 95L, Carbon Dioxide Level 21, Anion Gap 15H, Blood Urea Nitrogen 20H, Creatinine 0.99, Estimat Glomerular Filtration Rate 91, BUN/Creatinine Ratio 20, Glucose Level 123H, Calcium Level 8.7, Corrected Calcium 8.9, Total Bilirubin 0.6, Aspartate Amino Transf (AST/SGOT) 18, Alanine Aminotransferase (ALT/SGPT) 15, Alkaline Phosphatase 104, Total Protein 6.8, Albumin 3.7 10/26/21 12:50: Lactic Acid Level 1.32 10/27/21 05:30: White Blood Count 24.2H, Red Blood Count 3.74L, Hemoglobin 9.8L, Hematocrit 30L, Mean Corpuscular Volume 81, Mean Corpuscular Hemoglobin 26, Mean Corpuscular H emoglobin Concent 32, Red Cell Distribution Width 16.8H, Platelet Count 340, Mean Platelet Volume 9.4, Immature Granulocyte % (Auto) 1, Neutrophils (%) (Auto) 80H, Lymphocytes (%) (Auto) 9L, Monocytes (%) (Auto) 9, Eosinophils (%) (Auto) 0, Basophils (%) (Auto) 1, Neutrophils # (Auto) 19.3H, Lymphocytes # (Auto) 2.3, Monocytes # (Auto) 2.2H, Eosinophils # (Auto) 0.0, Basophils # (Auto) 0.1, Immature Granulocyte # (Auto) 0.3H Assessment/Plan Assessment/Plan Assessment/Plan Assessment: Perirectal pain Perirectal abscess - CT showed presacral inflammation with abscess extending down to the anus measuring 6.1x 5.2 cm and directly abutting the distal anus - Dressing over left buttocks. Incision is open with iodoform packing hanging out. Scant amount of purulent draiange. Overlying area with less tenderness and erythema. Leukocytosis - WBC count 29.9 on admission - Trend down to 24.2 - Marked neutrophilia Hyponatremia - 131 on admission Anemia - 11.8 on admission - 9.8 this morning. Likely dilutional, monitor. Gout h/o Pericarditis HLD Plan: Performed I&D on perirectal abscess at bedside large amount of purulent material evacuated up into the perirectal region Sent for cultures of abscess fluid. Packed irrigated and packed with iodoform dressing Dressing changes daily and PRN Continue Pip/tazo and metronidazole for coverage Continue IVF Admitted to hospital. Monitor for signs of infection Pain control PRN THADDEUS BOWEN DO 10/27/21 1131: Subjective Subjective/Events-last exam Buttock pain improving. WBC decreasing now 24.2. Reports slight fever. Denies n/v sweats chills shortness of breath or chest pain. Objective Exam General Appearance: No Apparent Distress, WD/WN HEENT: PERRL/EOMI Neck: Normal Inspection, Non Tender Respiratory: Chest Non Tender, No Accessory Muscle Use, No Respiratory Distress Cardiovascular: No JVD, Tachycardia Gastrointestinal: non tender, soft Extremity: Normal Capillary Refill, Non Tender Neurologic/Psychiatric: Alert, Oriented x3, No Motor/Sensory Deficits, Normal Mood/Affect Skin: Other ( Scant amount of purulent draiange. Overlying area with less tenderness and erythema, less induration.) Lymphatic: No Adenopathy (Head and neck) Assessment/Plan Assessment/Plan Assessment/Plan Perirectal pain Perirectal abscess - CT showed presacral inflammation with abscess extending down to the anus measuring 6.1x 5.2 cm and directly abutting the distal anus - Dressing over left buttocks. Incision is open with iodoform packing hanging out. Scant amount of purulent draiange. Overlying area with less tenderness and erythema. Leukocytosis - WBC count 29.9 on admission - Trend down to 24.2 - Marked neutrophilia Hyponatremia - 131 on admission Anemia - 11.8 on admission - 9.8 this morning. Likely dilutional, monitor. Gout h/o Pericarditis HLD Performed I&D on perirectal abscess at bedside large amount of purulent material evacuated up into the perirectal region Sent for cultures of abscess fluid. Packed irrigated and packed with iodoform dressing Dressing changes daily and PRN Continue Pip/tazo and metronidazole for coverage Continue IVF Admitted to hospital. Pain control PRN Supervisory-Addendum Brief Verification & Attestation Participated in pt care: history, MDM, physical Personally performed: exam, history, MDM, supervision of care Care discussed with: Medical Student Procedures: n/a Results interpretation: Verified all documentation Verification and Attestation of Medical Student E/M Service A medical student performed and documented this service in my presence. I reviewed and verified all information documented by the medical student and made modifications to such information, when appropriate. I personally performed the physical exam and medical decision making. Thaddeus Bowen, Oct 27, 2021,11:31 SILVIO VELEZ Oct 27, 2021 07:51 THADDEUS BOWEN DO Oct 27, 2021 11:31
--- NOTE | 2021-10-27 12:17 | History & Physical ---
HPI History of Present Illness: 55 yo M that presented to [facility] and then ER with rectal pain and was found to have a rectal abscess. Patient states that he had been having pain for the last few days. Denies any fever or chills. States that he has never had anything like this in the past. Denies any previous colonoscopy. Source: patient Exam Limitations: no limitations Date seen by provider: Oct 27, 2021 Time Seen by Provider: 10:05 Attending Physician Heather Marie MD PCP Aramis Armstrong MD Consult Date of Admission Oct 26, 2021 at 15:18 Home Medications Home Medications Reviewed patient Home Medication Reconciliation performed by pharmacy medication reconciliations body technician/painter and/or nursing. Patients Allergies have been reviewed. Allergies Coded Allergies: No Known Drug Allergies (Unverified , 10/26/21) QUI-Dwckoa-Vfahdn Hx Patient Social History Living Status: Lives at home independently Smoking Status: Current Everyday Smoker (37 year history at 1/2 PPD) 2nd Hand Smoke Exposure: No Recent Hopitalizations: No Alcohol Use?: Yes Substance type: Marijuana Tobacco type used: Cigarettes Have you traveled recently?: No Immunizations Up To Date Tetanus Booster (TDap): Unknown First/Initial COVID19 Vaccinat: AUG 2020 Second COVID19 Vaccination Brandon: AUGUST 2020 COVID19 Vaccine Licensed Prosthetist: MODERNA Past Medical History h/o Pericarditis Tobacco abuse Family Medical History Significant Family History: Heart Disease, Cancer (Mother, unsure of type), Lung Disease (Father, pulmonary fibrosis) Family History: Arthritis 19 MOTHER Cardiovascular disease 19 MOTHER Psychosocial problem 19 MOTHER Respiratory disorder 19 FATHER 19 MOTHER Review of Systems ([facility]) Constitutional: no symptoms reported EENTM: no symptoms reported Respiratory: no symptoms reported Cardiovascular: no symptoms reported Gastrointestinal: abdominal pain, constipation, loss of appetite Genitourinary: dysuria Musculoskeletal: no symptoms reported Skin: no symptoms reported Psychiatric/Neurological: No Symptoms Reported Reviewed Test Results Reviewed Test Results Lab Laboratory Tests Test 10/27/21 05:30 Range/Units White Blood Count 24.2 H 4.3-11.0 10^3/uL Red Blood Count 3.74 L 4.30-5.52 10^6/uL Hemoglobin 9.8 L 13.3-17.7 g/dL Hematocrit 30 L 40-54 % Mean Corpuscular Volume 81 80-99 fL Mean Corpuscular Hemoglobin 26 25-34 pg Mean Corpuscular Hemoglobin Concent 32 32-36 g/dL Red Cell Distribution Width 16.8 H 10.0-14.5 % Platelet Count 340 130-400 10^3/uL Mean Platelet Volume 9.4 9.0-12.2 fL Immature Granulocyte % (Auto) 1 % Neutrophils (%) (Auto) 80 H 42-75 % Lymphocytes (%) (Auto) 9 L 12-44 % Monocytes (%) (Auto) 9 0-12 % Eosinophils (%) (Auto) 0 0-10 % Basophils (%) (Auto) 1 0-10 % Neutrophils # (Auto) 19.3 H 1.8-7.8 10^3/uL Lymphocytes # (Auto) 2.3 1.0-4.0 10^3/uL Monocytes # (Auto) 2.2 H 0.0-1.0 10^3/uL Eosinophils # (Auto) 0.0 0.0-0.3 10^3/uL Basophils # (Auto) 0.1 0.0-0.1 10^3/uL Immature Granulocyte # (Auto) 0.3 H 0.0-0.1 10^3/uL Radiology Date of Exam:10/26/21 CT ABDOMEN/PELVIS W EXAMINATION: CT abdomen and pelvis with intravenous contrast. TECHNIQUE: Multiple contiguous axial images were obtained through the abdomen and pelvis after the uneventful administration of intravenous contrast. All CT scans use one or more of the following dose optimizing techniques: Automated exposure control, MA and/or KvP adjustment based on patient size and exam type or iterative reconstruction. HISTORY: Severe rectal pain. COMPARISON: 07/03/2019. FINDINGS: Limited views of the lower thorax are unremarkable. The liver is normal without focal lesion. There is no biliary ductal dilation. Gallbladder is normal. Pancreas is normal. Spleen is normal. Adrenal glands are normal. The kidneys are normal. There is no hydronephrosis. Urinary bladder is normal. There is a low attenuating collection posterior to the anus measuring 6.1 x 5.2 cm. It directly abuts the distal anus. There is mild presacral stranding. No free fluid or air. No abdominal or pelvic lymphadenopathy. Aorta is normal in caliber without aneurysm. There are no suspicious osseous lesions. IMPRESSION: 1. Low attenuating collection posterior to the anus measuring 6.1 x 5.2 cm and directly abutting the distal anus. Primary concern is for a perianal abscess with possible fistulization. Physical Exam-([facility]) Physical Exam Vital Signs VS - Last 72 Hours, by Label 10/26/21 10/26/21 10/26/21 10/26/21 12:17 16:10 16:22 16:30 Temp 36.7 35.5 Pulse 125 108 136 Resp 18 18 22 B/P (MAP) 104/61 (75) 112/64 98/60 (73) Pulse Ox 97 98 90 94 O2 Delivery Room Air Room Air Room Air Room Air 10/26/21 10/26/21 10/26/21 10/26/21 16:59 17:33 19:56 21:00 Temp 36.7 36.6 Pulse 125 109 114 Resp 18 18 B/P (MAP) 118/93 (101) 133/67 (89) Pulse Ox 97 94 91 O2 Delivery Room Air Room Air Room Air FiO2 21 10/26/21 10/27/21 10/27/21 10/27/21 22:20 00:00 02:20 04:00 Temp 38.0 37.0 Pulse 120 108 Resp 18 20 B/P (MAP) 122/62 (82) 109/62 (78) Pulse Ox 97 92 98 91 O2 Delivery Room Air Nasal Cannula Nasal Cannula Nasal Cannula O2 Flow Rate 2.00 2.00 2.00 10/27/21 10/27/21 10/27/21 10/27/21 07:30 08:31 08:59 12:06 Temp 35.9 37.1 Pulse 97 97 Resp 19 18 B/P (MAP) 110/57 (74) 130/61 (84) Pulse Ox 94 92 96 O2 Delivery Nasal Cannula Nasal Cannula Room Air Nasal Cannula O2 Flow Rate 3.00 2.00 2.00 10/27/21 10/27/21 10/27/21 15:22 15:35 15:36 Temp 37.5 36.7 Pulse 93 125 Resp 18 B/P (MAP) 122/59 (80) Pulse Ox 93 91 97 O2 Delivery Room Air Room Air FiO2 21 Capillary Refill : Less Than 3 Seconds General Appearance: WD/WN, no apparent distress HEENT: PERRL/EOMI Neck: non-tender, full range of motion, supple Respiratory: chest non-tender, lungs clear, normal breath sounds, no respiratory distress, no accessory muscle use Cardiovascular: regular rate, rhythm, no murmur Gastrointestinal: normal bowel sounds, soft Genital/Rectal: other (Rectal packing in place) Extremities: normal range of motion, non-tender, normal inspection, no pedal edema, no calf tenderness, normal capillary refill Neurologic/Psychiatric: basting marker II-XII nml as tested, no motor/sensory deficits, alert, normal mood/affect, oriented x 3 Skin: normal color, warm/dry Lymphatic: no adenopathy Assessment/Plan Assessment/Plan Admission Status: Inpatient Order (span 2 midnights) Reason for Inpatient Admission: Patient requiring IV antibiotics and surgery consult for high risk infection (1) Sepsis Assessment & Plan: - Continue broad spectrum antibiotics, General Surgery consult for abscess which has been drained and packed, culture pending, Sepsis resolved this AM Qualifiers: Qualified Codes: A41.9 - Sepsis, unspecified organism (2) Karis-rectal abscess Status: Acute (3) Normocytic anemia Status: Acute Assessment & Plan: - Patient age appropriate for outpatient colonoscopy (4) Smoker Status: Chronic Assessment & Plan: -1/2 ppd, discussed the importance of cessation, patient not ready to quit, offered nicotine patches HEATHER MARIE MD Oct 27, 2021 12:17
[2021-10-27] MEDS ORDERED: [UNRECOGNIZED DRUG - OTHER] PO (13:13)
[2021-10-27] MEDS ORDERED: ACET-2267 PO (13:13)
[2021-10-27] MEDS ORDERED: IBUP-2473 PO (13:13)
[2021-10-27] MEDS ORDERED: COLC0.6T59 PO (13:13)
[2021-10-27] MEDS ORDERED: [UNRECOGNIZED DRUG - OTHER] PO (13:13)
[2021-10-27] MEDS: NICOTINE 21 MG (NICODERM) PATCH TD SCH (17:15)
[2021-10-27] MEDS: SENNA W/DOCUSATE (SENOKOT S) TABLET PO SCH (20:01)
[2021-10-27] MEDS: DOCUSATE SODIUM 100 MG (COLACE) CAP PO SCH (20:01)
[2021-10-28] VITALS (7 sets, daily range): BP systolic 118–139; BP diastolic 66–84
[2021-10-28] MEDS: PIPERACILLIN SODIUM/TAZOBACTAM 4.5 GM in NS (IVPB) 100 ML IV SCH ×3 (04:50→20:10)
[2021-10-28] MEDS: morphine INJ 4 MG/ML 1 ML (VIAL/SYRINGE) IV PRN ×2 (04:59→08:24)
[2021-10-28] MEDS: metroNIDAZOLE 500 MG/100 ML IVPB (PRE-MIX) IV SCH ×3 (05:16→21:27)
[2021-10-28 05:38] LABS: BASOPHILS # (AUTO) 0.1 10^3/uL (0.0-0.1); BASOPHILS % (AUTO) 1 % (0-10); EOSINOPHILS # (AUTO) 0.4 10^3/uL (0.0-0.3); EOSINOPHILS % (AUTO) 3 % (0-10); HEMATOCRIT 31 % (40-54); HEMOGLOBIN 9.9 g/dL (13.3-17.7); LYMPHOCYTES # (AUTO) 2.5 10^3/uL (1.0-4.0); LYMPHOCYTES % (AUTO) 17 % (12-44); MEAN CORPUSCULAR HEMOGLOBIN 26 pg (25-34); MEAN CORPUSCULAR HGB CONC 32 g/dL (32-36); MEAN CORPUSCULAR VOLUME 82 fL (80-99); MEAN PLATELET VOLUME 9.3 fL (9.0-12.2); MONOCYTES # (AUTO) 1.5 10^3/uL (0.0-1.0); MONOCYTES % (AUTO) 10 % (0-12); NEUTROPHILS # (AUTO) 10.1 10^3/uL (1.8-7.8); NEUTROPHILS % (AUTO) 68 % (42-75); PLATELET COUNT 372 10^3/uL (130-400); WHITE BLOOD COUNT 14.7 10^3/uL (4.3-11.0)
[2021-10-28 05:45] LABS: ALBUMIN 2.8 GM/DL (3.2-4.5); POTASSIUM 3.9 MMOL/L (3.6-5.0)
[2021-10-28 05:46] LABS: CALCIUM 7.6 MG/DL (8.5-10.1)
[2021-10-28 05:48] LABS: TOTAL PROTEIN 5.1 GM/DL (6.4-8.2)
[2021-10-28 05:49] LABS: BILIRUBIN,TOTAL 0.2 MG/DL (0.1-1.0)
[2021-10-28 05:51] LABS: CREATININE SERUM 0.68 MG/DL (0.60-1.30)
[2021-10-28] MEDS: NS IV 1000 ML 1,000 ML IV SCH (06:22)
[2021-10-28] MEDS: NICOTINE 21 MG (NICODERM) PATCH TD SCH (08:24)
[2021-10-28] MEDS: DOCUSATE SODIUM 100 MG (COLACE) CAP PO SCH ×2 (08:24→20:10)
[2021-10-28] MEDS: SENNA W/DOCUSATE (SENOKOT S) TABLET PO SCH ×2 (08:24→20:10)
[2021-10-28] MEDS: NICOTINE PATCH REMOVAL TP SCH (08:25)
--- NOTE | 2021-10-28 10:47 | Progress Note ---
Subjective Date Seen by a Provider: Oct 28, 2021 Time Seen by a Provider: 10:10 Subjective/Events-last exam Patient seen with Dr. Cosme. Patient reports doing well. Denies any pain. Tolerating diet. Ambulating. Focused Exam Lactate Level 10/26/21 12:50: Lactic Acid Level 1.32 Objective Exam Vital Signs Date Time Temp Pulse Resp B/P (MAP) Pulse Ox O2 Delivery O2 Flow Rate FiO2 10/28/21 08:11 Nasal Cannula 2.00 10/28/21 07:20 36.7 100 20 125/71 (89) 93 Nasal Cannula 2.00 10/28/21 06:59 Nasal Cannula 2.00 10/28/21 04:50 36.7 98 18 127/66 (86) 94 Nasal Cannula 2.00 10/28/21 00:09 37.3 95 18 122/72 (89) 95 Nasal Cannula 2.00 10/27/21 20:10 Nasal Cannula 2.00 10/27/21 20:03 37.3 100 18 120/70 (87) 93 Nasal Cannula 2.00 10/27/21 15:36 36.7 125 97 21 10/27/21 15:35 91 Room Air 10/27/21 15:22 37.5 93 18 122/59 (80) 93 Room Air 10/27/21 12:06 37.1 97 18 130/61 (84) 96 Nasal Cannula 2.00 I & O 10/28/21 07:00 Intake Total 3670 ml Output Total 3000 ml Balance 670 ml Capillary Refill : Less Than 3 Seconds General Appearance: No Apparent Distress, WD/WN Neck: Normal Inspection, Supple Respiratory: No Accessory Muscle Use, No Respiratory Distress Gastrointestinal: normal bowel sounds, non tender, soft Extremity: Normal Inspection, Normal Range of Motion Neurologic/Psychiatric: Alert, Oriented x3 Skin: Other (Patient refused examination of incision) Results Lab Laboratory Tests 10/28/21 05:10: White Blood Count 14.7H, Red Blood Count 3.81L, Hemoglobin 9.9L, Hematocrit 31L, Mean Corpuscular Volume 82, Mean Corpuscular Hemoglobin 26, Mean Corpuscular Hemoglobin Concent 32, Red Cell Distribution Width 17.1H, Platelet Count 372, Mean Platelet Volume 9.3, Immature Granulocyte % (Auto) 1, Neutrophils (%) (Auto) 68, Lymphocytes (%) (Auto) 17, Monocytes (%) (Auto) 10, Eosinophils (%) (Auto) 3, Basophils (%) (Auto) 1, Neutrophils # (Auto) 10.1H, Lymphocytes # (Auto) 2.5, Monocytes # (Auto) 1.5H, Eosinophils # (Auto) 0.4H, Basophils # (Auto) 0.1, Immature Granulocyte # (Auto) 0.1, Sodium Level 138, Potassium Level 3.9, Chloride Level 105, Carbon Dioxide Level 22, Anion Gap 11, Blood Urea Nitrogen 11, Creatinine 0.68, Estimat Glomerular Filtration Rate 110, BUN/Creatinine Ratio 16, Glucose Level 115H, Calcium Level 7.6L, Corrected Calcium 8.6, Total Bilirubin 0.2, Aspartate Amino Transf (AST/SGOT) 21, Alanine Aminotransferase (ALT/SGPT) 21, Alkaline Phosphatase 91, Total Protein 5.1L, Albumin 2.8L Microbiology 10/26/21 Gram Stain - Final, Resulted 10/26/21 Anaerobic Culture, Resulted Pending 10/26/21 Wound Culture - Preliminary, Resulted Strep, Beta Hemolytic Group F Gram Negative Bacillus 1 10/26/21 Blood Culture - Preliminary, Resulted No growth Assessment/Plan Assessment/Plan Assess & Plan/Chief Complaint A 55 year old male with Perirectal pain, Perirectal abscess, S/P I&D of perianal abscess VSS WBC down to 14.7 Continue iodoform dressing changes daily and PRN Continue Pip/tazo and metronidazole for coverage Continue IVF Pain control PRN ALDA ASTUDILLO APRN Oct 28, 2021 10:47
--- NOTE | 2021-10-28 11:52 | Progress Note - Hospitalist ---
Subjective HPI/CC On Admission Date Seen by Provider: Oct 28, 2021 Time Seen by Provider: 09:30 Subjective/Events-last exam Patient doing very well White count down to 14,000 IV antibiotics continue Packed the wound and it looks really good Appreciate general surgery Review of Systems General: Fatigue, Malaise Focused Exam Lactate Level 10/26/21 12:50: Lactic Acid Level 1.32 Objective Exam Vital Signs Vital Signs Date Time Temp Pulse Resp B/P (MAP) Pulse Ox O2 Delivery O2 Flow Rate FiO2 10/28/21 11:09 36.6 100 22 139/73 (95) 92 Room Air 10/28/21 08:11 2.00 10/27/21 15:36 21 Capillary Refill : Less Than 3 Seconds General Appearance: No Apparent Distress, WD/WN, Chronically ill, Obese Respiratory: Lungs Clear, Normal Breath Sounds Cardiovascular: Regular Rate, Rhythm Neurologic/Psychiatric: Alert, Oriented x3, No Motor/Sensory Deficits, Normal Mood/Affect Results/Procedures Lab Laboratory Tests 10/28/21 05:10 Patient resulted labs reviewed. Assessment/Plan Assessment and Plan Assess & Plan/Chief Complaint Assessment: Sepsis Rectal abscess Smoker COPD Leukocytosis Plan: Appreciate general surgery Pack wound IV antibiotics Hep-Lock IV fluid Ambulate TAVON NICHOLSON DO Oct 28, 2021 11:52
[2021-10-28] MEDS: ENOXAPARIN 40 MG/0.4 ML (LOVENOX) SYR SC SCH (13:40)
[2021-10-29 03:53] VITALS: BP 105/55
[2021-10-29] MEDS: metroNIDAZOLE 500 MG/100 ML IVPB (PRE-MIX) IV SCH ×2 (05:26→14:18)
[2021-10-29] MEDS: PIPERACILLIN SODIUM/TAZOBACTAM 4.5 GM in NS (IVPB) 100 ML IV SCH ×2 (05:26→13:04)
[2021-10-29 05:30] LABS: HEMATOCRIT 37 % (40-54); HEMOGLOBIN 11.5 g/dL (13.3-17.7); MEAN CORPUSCULAR HEMOGLOBIN 26 pg (25-34); MEAN CORPUSCULAR HGB CONC 31 g/dL (32-36); MEAN CORPUSCULAR VOLUME 82 fL (80-99); PLATELET COUNT 491 10^3/uL (130-400); WHITE BLOOD COUNT 15.5 10^3/uL (4.3-11.0)
[2021-10-29 07:50] VITALS: BP 113/72
[2021-10-29] MEDS: DOCUSATE SODIUM 100 MG (COLACE) CAP PO SCH (08:01)
[2021-10-29] MEDS: SENNA W/DOCUSATE (SENOKOT S) TABLET PO SCH (08:01)
[2021-10-29] MEDS: NICOTINE 21 MG (NICODERM) PATCH TD SCH (08:01)
[2021-10-29] MEDS: NICOTINE PATCH REMOVAL TP SCH (08:01)
--- NOTE | 2021-10-29 10:06 | Progress Note ---
Subjective Date Seen by a Provider: October 29, 2021 Time Seen by a Provider: 10:20 Subjective/Events-last exam Patient seen with Dr. Cosme. Patient reports doing well. Had BM this morning. Denies any fever/chills. Reports that he would like to go home. Focused Exam Lactate Level 10/26/21 12:50: Lactic Acid Level 1.32 Objective Exam Vital Signs Date Time Temp Pulse Resp B/P (MAP) Pulse Ox O2 Delivery O2 Flow Rate FiO2 10/29/21 07:50 36.9 95 20 113/72 (86) 94 Nasal Cannula 2.00 10/29/21 07:20 Nasal Cannula 2.00 10/29/21 03:53 36.8 86 18 105/55 (72) 93 Nasal Cannula 2.00 10/28/21 23:56 37.0 103 18 136/82 (100) 92 Nasal Cannula 2.00 10/28/21 20:15 Nasal Cannula 2.00 10/28/21 19:52 36.1 104 17 118/73 (88) 93 Room Air 10/28/21 16:05 37.1 86 19 135/84 (101) 94 Room Air 10/28/21 11:09 36.6 100 22 139/73 (95) 92 Room Air I & O 10/29/21 07:00 Intake Total 1820 ml Output Total 2685 ml Balance -865 ml Capillary Refill : Less Than 3 Seconds General Appearance: No Apparent Distress, WD/WN Neck: Normal Inspection, Supple Respiratory: No Accessory Muscle Use, No Respiratory Distress Gastrointestinal: normal bowel sounds, non tender, soft Extremity: Normal Inspection, Normal Range of Motion Neurologic/Psychiatric: Alert, Oriented x3 Results Lab Laboratory Tests 10/29/21 05:20: White Blood Count 15.5H, Red Blood Count 4.49, Hemoglobin 11.5L, Hematocrit 37L, Mean Corpuscular Volume 82, Mean Corpuscular Hemoglobin 26, Mean Corpuscular Hemoglobin Concent 31L, Red Cell Distribution Width 17.1H, Platelet Count 491H, Mean Platelet Volume 9.0 Microbiology 10/26/21 Gram Stain - Final, Resulted 10/26/21 Anaerobic Culture, Resulted Pending 10/26/21 Wound Culture - Preliminary, Resulted Strep anginosus Gram Negative Bacillus 1 10/26/21 Blood Culture - Preliminary, Resulted No growth Assessment/Plan Assessment/Plan Assess & Plan/Chief Complaint A 55 year old male with Perirectal pain, Perirectal abscess, S/P I&D of perianal abscess VSS WBC 15.5 Continue iodoform dressing changes daily and PRN Continue Pip/tazo and metronidazole for coverage Continue IVF Pain control PRN Ok for DC home with abx and pain meds in chart. Follow up with Dr. Bowen in 1-2 weeks. ALDA ASTUDILLO [place] WINDER October 29, 2021 10:06
[2021-10-29] MEDS: ENOXAPARIN 40 MG/0.4 ML (LOVENOX) SYR SC SCH (11:46)
[2021-10-29 11:48] VITALS: BP 143/84
[2021-10-29] MEDS ORDERED: AMOX1TAB12 PO (13:05)
[2021-10-29] MEDS ORDERED: METR-145 PO (13:05)
[2021-10-29] MEDS ORDERED: OXC5T PO (13:05)
--- NOTE | 2021-10-29 13:06 | Discharge Summary ---
Discharge Summary Hospital Course Was the Problem List Reviewed?: Yes Problems/Dx: (1) Karis-rectal abscess Status: Acute (2) Sepsis Qualifiers: Qualified Codes: A41.9 - Sepsis, unspecified organism (3) COPD (chronic obstructive pulmonary disease) (4) Smoker Status: Chronic Hospital Course Date of Admission: Oct 26, 2021 at 15:18 Admission Diagnosis : Family Physician/Provider: Aramis Armstrong MD Date of Discharge: 10/29/21 Discharge Diagnosis: Perirectal abscess, sepsis, COPD, current smoker Hospital Course: Patient had an uneventful hospital course after he was admitted for perirectal abscess status post incision and drainage and packing with dressing changes by nursing staff. Leukocytosis improved. Broad-spectrum of antibiotics of Zosyn and Flagyl maintained. Patient was deemed stable for discharge placed on oral antibiotics and discharged in improved condition. Labs and Pending Lab Test: Laboratory Tests 10/29/21 05:20: White Blood Count 15.5H, Red Blood Count 4.49, Hemoglobin 11.5L, Hematocrit 37L, Mean Corpuscular Volume 82, Mean Corpuscular Hemoglobin 26, Mean Corpuscular Hemoglobin Concent 31L, Red Cell Distribution Width 17.1H, Platelet Count 491H, Mean Platelet Volume 9.0 Microbiology 10/26/21 Gram Stain - Final, Resulted 10/26/21 Anaerobic Culture, Resulted Pending 10/26/21 Wound Culture - Preliminary, Resulted Strep anginosus Gram Negative Bacillus 1 10/26/21 Blood Culture - Preliminary, Resulted No growth Home Meds Active Metronidazole 500 Mg Tablet 500 Mg PO TID Amox Tr-K Clv 875-125 mg Tab (Amoxicillin/Potassium Clav) 875 Mg-125 Mg Tablet 1 Each PO BID Oxyir Tablet (Oxycodone HCl) 5 Mg Tab 5 Mg PO TID PRN Reported Ibuprofen 200 Mg Tablet 400 Mg PO Q8H PRN Tylenol Extra Strength (Acetaminophen) 500 Mg Tablet 1,000 Mg PO Q8H PRN [[facility] Testosterone ] 1 Ea PO BID [[facility] Brain Supplement] 1 Ea PO BID Colchicine 0.6 Mg Tablet 0.6 Mg PO DAILY Flomax (Tamsulosin HCl) 0.4 Mg Cap 0.4 Mg PO DAILY Proair Hfa (Albuterol Sulfate) 1 Puff Puff 2 Puff IH Q4H PRN Lipitor (Atorvastatin Calcium) 20 Mg Tablet 20 Mg PO DAILY Assessment/Pt Instructions Dr. Bowen in 2 weeks Discharge Planning: <30 minutes discharge planning Discharge Instructions Discharge Diet: No Restrictions Discharge Physical Examination Vital Signs Vital Signs Date Time Temp Pulse Resp B/P (MAP) Pulse Ox O2 Delivery O2 Flow Rate FiO2 10/29/21 11:48 36.6 80 20 143/84 (103) 95 Room Air 10/29/21 07:50 2.00 10/27/21 15:36 21 General Appearance: No Apparent Distress, WD/WN, Chronically ill Allergies: Coded Allergies: No Known Drug Allergies (Unverified , 10/26/21) Discharge Summary Date of Admission Oct 26, 2021 at 15:18 Date of Discharge Discharge Date: October 29, 2021 Discharge Diagnosis Assessment: Sepsis Rectal abscess Smoker COPD Leukocytosis Plan: Appreciate general surgery Pack wound IV antibiotics Hep-Lock IV fluid Ambulate TAVON NICHOLSON DO October 29, 2021 13:06
== END 2021-10-29 14:51 | disposition home or self-care (01) | DRG 854 ==
LOC: EDUNIT# 11:51 → ER 11:53 → 4TH 15:18
PROVIDERS: ADMIT Family Medicine; ATTEND Internal Medicine
PROC: 0D9P0ZZ Drainage of Rectum, Open Approach (ICD-10-PCS; principal; 2021-10-26)
DX: A41.9 Sepsis, unspecified organism (principal); K61.1 Rectal abscess; E87.1 Hypo-osmolality and hyponatremia; J44.9 Chronic obstructive pulmonary disease, unspecified; F17.210 Nicotine dependence, cigarettes, uncomplicated; F41.9 Anxiety disorder, unspecified; E78.00 Pure hypercholesterolemia, unspecified; E78.5 Hyperlipidemia, unspecified; M10.9 Gout, unspecified; D64.9 Anemia, unspecified; Z79.1 Long term (current) use of non-steroidal anti-inflammatories (NSAID); Z79.52 Long term (current) use of systemic steroids; Z83.6 Family history of other diseases of the respiratory system
CPT/HCPCS: 36415; 71045; 74177; 80053; 83605; 85007; 85025; 85027; 85610; 85730; 87040; 87070; 87075; 87076; 87077; 87205; 94640

== ENCOUNTER 2022-02-21 18:05 | Emergency (ER) | payer MEDICARE ==
[~2022-02-21] VITALS: Ht 177.8 cm; Wt 92.4 kg
[~2022-02-21 18:05] MED LIST changes: +ACET-2267 PO; +AMOX1TAB12 PO; +COLC0.6T59 PO; +IBUP-2473 PO; +METR-145 PO; +OXC5T PO; +[UNRECOGNIZED DRUG - OTHER] PO; +[UNRECOGNIZED DRUG - OTHER] PO
--- NOTE | 2022-02-21 18:54 | Diagnostic Imaging Report ---
PROCEDURE: CT lumbar spine without contrast. TECHNIQUE: Multiple contiguous axial images were obtained through the lumbar spine without the use of intravenous contrast. Sagittal and coronal reformations were then performed. Auto Exposure Controls were utilized during the CT exam to meet ALARA standards for radiation dose reduction. INDICATION: 56-year-old male, low back pain with intermittent lower extremity tingling x6 days after moving furniture. CORRELATION STUDY: None FINDINGS: Lumbar spinal alignment anatomic. Lumbar vertebral body heights are maintained. There is no acute bony abnormality. Posterior elements intact and in normal alignment. Very slight asymmetric loss of height L2-L3 disc level. There is also slightly more ossified L4-L5 and L5-S1 level. Both these levels demonstrates mild broad-based disc bulge with minimal endplate osteophyte formation. At the L5-S1 level, there is what appears to be moderate bilateral foraminal narrowing left greater than right. Partially visualized sacrum and sacroiliac joints are unremarkable. IMPRESSION: 1. Negative for acute bony hematocrit. Alignment anatomic. 2. Degenerative disease particularly L5-S1, L4-L5 and L2-L3 levels. There is resultant foraminal narrowing, mild to moderate severity at L4-L5 and L5-S1 levels. Dictated by: Dictated on workstation # [id number]
--- NOTE | 2022-02-21 19:06 | ED Back Pain ---
General Chief Complaint: Back Problems Stated Complaint: BACK PAIN Nursing Triage Note: Pt here for low back pain x 6 days after moving furniture. He has had some tingling in his lower extremities since then that is intermittent. Source of Information: Patient Exam Limitations: No Limitations History of Present Illness Date Seen by Provider: Feb 21, 2022 Time Seen by Provider: 18:35 Initial Comments 56-year-old male presents for low back pain. Symptoms present for about 6 days after he was moving a love seat. States he has this happen about once every 2 years but usually resolves spontaneously more quickly. It is a dull throbbing sensation in his mid low back, worse with ambulation, twisting movements. he does have some tingling in the soles of his feet bilaterally. No loss of bowel or bladder control or saddle anesthesia. No lower extremity weakness. Mild at baseline, moderate with movement Allergies and Home Medications Allergies Coded Allergies: No Known Drug Allergies (Unverified , 10/26/21) Patient Home Medication List Home Medication List Reviewed: Yes Acetaminophen (Tylenol Extra Strength) 500 Mg Tablet, 1,000 MG PO Q8H PRN for PAIN-MILD (1-4), (Reported) Entered as Reported by: JOY AGUILAR on 10/27/21 1313 Albuterol Sulfate (Proair Hfa) 1 Puff Puff, 2 PUFF IH Q4H PRN for SHORTNESS OF BREATH, (Reported) Entered as Reported by: MISHEL PATRICIA on 07/02/19 1458 Atorvastatin Calcium (Lipitor) 20 Mg Tablet, 20 MG PO DAILY, (Reported) Entered as Reported by: MISHEL PATRICIA on 07/02/19 1458 Colchicine (Colchicine) 0.6 Mg Tablet, 0.6 MG PO DAILY, (Reported) Entered as Reported by: JOY AGUILAR on 10/27/21 1313 Ibuprofen (Ibuprofen) 200 Mg Tablet, 400 MG PO Q8H PRN for PAIN-MILD (1-4), (Reported) Entered as Reported by: JOY AGUILAR on 10/27/21 1313 Oxycodone Hcl (Oxyir Tablet) 5 Mg Tab, 5 MG PO TID PRN for PAIN-SEVERE (8-10) Prescribed by: TAVON NICHOLSON on 10/29/21 1305 Tamsulosin HCl (Flomax) 0.4 Mg Cap, 0.4 MG PO DAILY, (Reported) Entered as Reported by: MISHEL PATRICIA on 07/02/19 1458 [[facility] Brain Supplement] , 1 EA PO BID, (Reported) Entered as Reported by: JOY AGUILAR on 10/27/21 1313 [[facility] Testosterone ] , 1 EA PO BID, (Reported) Entered as Reported by: JYO AGUILAR on 10/27/21 1313 Discontinued Medications Amoxicillin/Potassium Clav (Amox Tr-K Clv 875-125 mg Tab) 875 Mg-125 Mg Tablet, 1 EACH PO BID Discontinued Reason: No Longer Taking Prescribed by: TAVON NICHOLSON on 10/29/21 130 Last Action: Discontinued Metronidazole (Metronidazole) 500 Mg Tablet, 500 MG PO TID Discontinued Reason: No Longer Taking Prescribed by: TAVON NICHOLSON on 10/29/211304 Last Action: Discontinued Review of Systems Constitutional: no symptoms reported EENTM: no symptoms reported Respiratory: no symptoms reported Cardiovascular: no symptoms reported Gastrointestinal: no symptoms reported Genitourinary: no symptoms reported Musculoskeletal: back pain Skin: no symptoms reported Psychiatric/Neurological: No Symptoms Reported Past Dwryxrz-Htpmsc-Jqbalc Hx Patient Social History Tobacco Use?: Yes Tobacco type used: Cigarettes Smoking Status: Current Everyday Smoker Use of E-Cig and/or Vaping dev: No Substance use?: No Alcohol Use?: No Pt feels they are or have been: No Immunizations Up To Date Tetanus Booster (TDap): Unknown PED Vaccines UTD: No First/Initial COVID19 Vaccinat: AUG 2020 Second COVID19 Vaccination Brandon: AUGUST 2020 Seasonal Allergies Seasonal Allergies: No Past Medical History Surgeries: Yes (Jaw Sx from fracture) Respiratory: Yes COPD Currently Using CPAP: No Currently Using BIPAP: No Cardiac: Yes High Cholesterol Neurological: No Reproductive Disorders: No Genitourinary: Yes Prostate Problems Gastrointestinal: No Musculoskeletal: No Gout Endocrine: No HEENT: No Loss of Vision: Denies Hearing Impairment: Denies Cancer: No Psychosocial: No Integumentary: No Blood Disorders: No Family Medical History Reviewed Nursing Family Hx Arthritis 19 MOTHER Cardiovascular disease 19 MOTHER Psychosocial problem 19 MOTHER Respiratory disorder 19 FATHER 19 MOTHER Heart Disease, Cancer, Lung Disease Physical Exam Vital Signs Vital Signs - First Documented 02/21/22 18:10 Temp 36.2 Pulse 104 Resp 20 B/P (MAP) 110/79 (89) Pulse Ox 95 O2 Delivery Room Air Capillary Refill : Less Than 3 Seconds Height, Weight, BMI Height: 5'10.00" Weight: 205lbs. oz. 92.766898gc; 29.00 BMI Method:Stated General Appearance: No Apparent Distress, WD/WN HEENT: Normal ENT Inspection, Pharynx Normal Cardiovascular: Regular Rate, Rhythm, No Edema, No Gallop, No JVD, No Murmur, Normal Peripheral Pulses Respiratory: Chest Non Tender, Lungs Clear, Normal Breath Sounds, No Accessory Muscle Use, No Respiratory Distress Gastrointestinal: Normal Bowel Sounds, No Organomegaly, No Pulsatile Mass, Non Tender, Soft Back: Other (Tender to palpation around L2-L3 region. No step-offs or deformity.) Extremity: Normal Capillary Refill, Normal Inspection, Normal Range of Motion, Non Tender, No Calf Tenderness Neurologic/Psychiatric: Oriented x3, No Motor/Sensory Deficits, Normal Mood/Affect, line patroller II-XII Norm as Tested, Other (Normal reflex bilateral lower extremity) Skin: Normal Color, Warm/Dry Lymphatic: No Adenopathy Progress/Results/Core Measures Results/Orders My Orders Orders - RASHAD PADGETT DO Ct Lumbar Spine Wo (02/21/22 18:29) Ketorolac Injection (Toradol Injection) (02/21/22 19:15) Vital Signs/I&O 02/21/22 18:10 Temp 36.2 Pulse 104 Resp 20 B/P (MAP) 110/79 (89) Pulse Ox 95 O2 Delivery Room Air Blood Pressure Mean: 89 Diagnostic Imaging Comments [facility], [place] NAME: MAGALI PATEL [facility] REC#: [id number] PT STATUS: REG ER : 1965 PHYSICIAN: RASHAD PADGETT DO ADMIT DATE: 02/21/22/ER FS Draft Date of Exam:02/21/22 CT LUMBAR SPINE WO PROCEDURE: CT lumbar spine without contrast. TECHNIQUE: Multiple contiguous axial images were obtained through the lumbar spine without the use of intravenous contrast. Sagittal and coronal reformations were then performed. Auto Exposure Controls were utilized during the CT exam to meet ALARA standards for radiation dose reduction. INDICATION: 56-year-old male, low back pain with intermittent lower extremity tingling x6 days after moving furniture. CORRELATION STUDY: None FINDINGS: Lumbar spinal alignment anatomic. Lumbar vertebral body heights are maintained. There is no acute bony abnormality. Posterior elements intact and in normal alignment. Very slight asymmetric loss of height L2-L3 disc level. There is also slightly more ossified L4-L5 and L5-S1 level. Both these levels demonstrates mild broad-based disc bulge with minimal endplate osteophyte formation. At the L5-S1 level, there is what appears to be moderate bilateral foraminal narrowing left greater than right. Partially visualized sacrum and sacroiliac joints are unremarkable. IMPRESSION: 1. Negative for acute bony hematocrit. Alignment anatomic. 2. Degenerative disease particularly L5-S1, L4-L5 and L2-L3 levels. There is resultant foraminal narrowing, mild to moderate severity at L4-L5 and L5-S1 levels. Dictated on workstation # [id number] Dict: 02/21/22 1846 Trans: 02/21/22 [id number] [facility] [id number] Interpreted by: CEFERINO FITCH DO Electronically signed by: Departure Communication (Admissions) Patient is hemodynamically stable. CT scan obtained due to the tingling he has in his feet. This shows some degenerative changes and mild to moderate stenosis. He will be referred to orthopedics for further evaluation should his symptoms not resolve in the next week or so. He sent home with Toradol. Impression Primary Impression: Lumbar sprain Qualified Codes: S33.5XXA - Sprain of ligaments of lumbar spine, initial encounter Disposition: HOME, SELF-CARE Condition: Stable Departure-Patient Inst. Referrals: CATALINA MONTEZ MD (PCP) Primary Care Physician RAMYA KAUR APRN (Family) Primary Care Physician SAIRA JOHNSTON MD Patient Instructions: Back Muscle Strain (DC), Acute Pain, Adult Add. Discharge Instructions: Take the prescribed medications as needed. Return to the emergency department for any severe concerns. Follow-up with your primary physicians for any nonem ergent needs. Should your symptoms persist past the next week recommend you call to schedule follow-up appointment with Dr. Johnston. If you develop any weakness of your legs, loss of bowel or bladder control you need to return to the emergency department immediately All discharge instructions reviewed with patient and/or family. Voiced understanding. Scripts Tizanidine HCl (Zanaflex) 2 Mg Capsule 2 MG PO Q6H for Muscle Spasms for 3 Days, #12 CAP Prov: RASHAD PADGETT DO 02/21/22 RASHAD PADGETT DO Feb 21, 2022 19:06
[2022-02-21] MEDS ORDERED: TIZA2CAP PO (19:12)
[2022-02-21] MEDS ORDERED: KETOROLAC 60 MG/2 ML VIAL IM ONE (19:15)
[2022-02-21 19:23] VITALS: BP 110/79
== END 2022-02-21 19:23 | disposition home or self-care (01) ==
LOC: EDUNIT# 18:05 → ER FS 18:07
DX: S33.5XXA Sprain of ligaments of lumbar spine, initial encounter (principal); F17.210 Nicotine dependence, cigarettes, uncomplicated; X50.1XXA Overexertion from prolonged static or awkward postures, initial encounter
CPT/HCPCS: 72131; 96372

== ENCOUNTER 2022-06-03 18:19 | Inpatient (IN) | payer MEDICARE ==
[~2022-06-03] VITALS: Ht 177.8 cm; Wt 96.4 kg
[~2022-06-03 18:19] MED LIST changes: +ALBU8.5H6 IH; -RT-ALBUINH IH; +TIZA2CAP PO
[2022-06-03] MEDS ORDERED: methylPREDNISolone 125 MG (Solu-MEDROL) VIAL IV STA (18:28)
[2022-06-03] MEDS ORDERED: RT-ALBUTEROL/IPRATROPIUM 3 ML (DUONEB) VIAL ONE (18:28)
--- NOTE | 2022-06-03 18:28 | ED Cough/URI ---
General Stated Complaint: COUGH; SOB History of Present Illness Date Seen by Provider: Jun 03, 2022 Time Seen by Provider: 18:24 Initial Comments 56-year-old male presents with cough shortness of breath some chest tightness. Patient denies any nausea or vomiting. He does not have any chest pain. Patient has a history of COPD and has had to use his inhaler increasingly. He reports symptoms started 3 to 4 days ago. No reports of fever some chills. Patient does have an increased cough from his baseline Allergies and Home Medications Allergies Coded Allergies: No Known Drug Allergies (Unverified , 10/26/21) Patient Home Medication List Home Medication List Reviewed: Yes Acetaminophen (Tylenol Extra Strength) 500 Mg Tablet, 1,000 MG PO Q8H PRN for PAIN-MILD (1-4), (Reported) Entered as Reported by: JOY AGUILAR on 10/27/21 131 Albuterol Sulfate (Ventolin Hfa) 1 Puff Puff, 2 PUFF IH Q4H PRN for SHORTNESS OF BREATH, (Reported) Entered as Reported by: MISHEL PATRICIA on 07/02/19 1458 Atorvastatin Calcium (Lipitor) 20 Mg Tablet, 20 MG PO DAILY, (Reported) Entered as Reported by: MISHEL PATRICIA on 07/02/19 145 Colchicine (Colchicine) 0.6 Mg Tablet, 0.6 MG PO DAILY, (Reported) Entered as Reported by: JOY AGUILAR on 10/27/21 131 Ibuprofen (Ibuprofen) 200 Mg Tablet, 400 MG PO Q8H PRN for PAIN-MILD (1-4), (Reported) Entered as Reported by: JOY AGUILAR on 10/27/21 1313 Oxycodone Hcl (Oxyir Tablet) 5 Mg Tab, 5 MG PO TID PRN for PAIN-SEVERE (8-10) Prescribed by: TAVON NICHOLSON on 10/29/21 1305 Tamsulosin HCl (Flomax) 0.4 Mg Cap, 0.4 MG PO DAILY, (Reported) Entered as Reported by: MISHEL PATRICIA on 07/02/19 145 Tizanidine HCl (Zanaflex) 2 Mg Capsule, 2 MG PO Q6H Prescribed by: RASHAD PADGETT MD on 02/21/22 191 [[facility] Brain Supplement] , 1 EA PO BID, (Reported) Entered as Reported by: JOY AGUILAR on 10/27/21 131 [Gn Testosterone ] , 1 EA PO BID, (Reported) Entered as Reported by: JOY AGUILAR on 10/27/211312 Review of Systems Review of Systems Constitutional: chills; No fever EENTM: no symptoms reported Respiratory: cough, short of breath, wheezing Cardiovascular: no symptoms reported Gastrointestinal: no symptoms reported Genitourinary: no symptoms reported Musculoskeletal: no symptoms reported Skin: no symptoms reported Psychiatric/Neurological: No Symptoms Reported Past Cotrund-Xmkeck-Woeomu Hx Immunizations Up To Date Tetanus Booster (TDap): Unknown PED Vaccines UTD: No First/Initial COVID19 Vaccinat: AUG 2020 Second COVID19 Vaccination Brandon: AUGUST 2020 Seasonal Allergies Seasonal Allergies: No Past Medical History Surgeries: Yes (Jaw Sx from fracture) Respiratory: Yes COPD Currently Using CPAP: No Currently Using BIPAP: No Cardiac: Yes High Cholesterol Neurological: No Reproductive Disorders: No Genitourinary: Yes Prostate Problems Gastrointestinal: No Musculoskeletal: No Gout Endocrine: No HEENT: No Loss of Vision: Denies Hearing Impairment: Denies Cancer: No Psychosocial: No Integumentary: No Blood Disorders: No Family Medical History Arthritis 19 MOTHER Cardiovascular disease 19 MOTHER Psychosocial problem 19 MOTHER Respiratory disorder 19 FATHER 19 MOTHER Heart Disease, Cancer, Lung Disease Physical Exam Vital Signs - First Documented 06/03/22 18:20 Temp 35.8 Pulse 136 Resp 22 B/P (MAP) 142/86 (104) Pulse Ox 86 O2 Delivery Room Air Capillary Refill : Height: 5'10.00" Weight: 205lbs. oz. 92.737737cw; 29.00 BMI Method:Stated General Appearance: mild distress HEENT: PERRL/EOMI Neck: full range of motion, supple Respiratory: no respiratory distress, no accessory muscle use, decreased breath sounds; No wheezing Cardiovascular: normal peripheral pulses, regular rate, rhythm Gastrointestinal: non tender, soft Neurologic/Psychiatric: alert, normal mood/affect, oriented x 3 Skin: normal color, warm/dry Focused Exam Lactate Level 06/03/22 18:31: Lactic Acid Level 1.35 Lactic Acid Level Laboratory Tests Test 06/03/22 18:31 Lactic Acid Level 1.35 MMOL/L (0.50-2.00) Progress/Results/Core Measures Suspected Sepsis SIRS Temperature: Pulse: Respiratory Rate: Laboratory Tests 06/03/22 18:31: White Blood Count 26.8H Blood Pressure / Mean: 06/03/22 18:31: Lactic Acid Level 1.35 Laboratory Tests 06/03/22 18:31: Creatinine 0.88, Platelet Count 380, Total Bilirubin 0.8 Results/Orders Lab Results Laboratory Tests Test 06/03/22 18:31 Range/Units White Blood Count 26.8 H 4.3-11.0 10^3/uL Red Blood Count 4.89 4.30-5.52 10^6/uL Hemoglobin 13.2 L 13.3-17.7 g/dL Hematocrit 41 40-54 % Mean Corpuscular Volume 83 80-99 fL Mean Corpuscular Hemoglobin 27 25-34 pg Mean Corpuscular Hemoglobin Concent 32 32-36 g/dL Red Cell Distribution Width 16.2 H 10.0-14.5 % Platelet Count 380 130-400 10^3/uL Mean Platelet Volume 9.0 9.0-12.2 fL Immature Granulocyte % (Auto) 1 % Neutrophils (%) (Auto) 78 H 42-75 % Lymphocytes (%) (Auto) 11 L 12-44 % Monocytes (%) (Auto) 9 0-12 % Eosinophils (%) (Auto) 0 0-10 % Basophils (%) (Auto) 0 0-10 % Neutrophils # (Auto) 21.0 H 1.8-7.8 10^3/uL Lymphocytes # (Auto) 3.1 1.0-4.0 10^3/uL Monocytes # (Auto) 2.5 H 0.0-1.0 10^3/uL Eosinophils # (Auto) 0.0 0.0-0.3 10^3/uL Basophils # (Auto) 0.1 0.0-0.1 10^3/uL Immature Granulocyte # (Auto) 0.2 H 0.0-0.1 10^3/uL Neutrophils % (Manual) 91 % Lymphocytes % (Manual) 4 % Monocytes % (Manual) 5 % Sodium Level 131 L 135-145 MMOL/L Potassium Level 4.2 3.6-5.0 MMOL/L Chloride Level 97 L 98-107 MMOL/L Carbon Dioxide Level 22 21-32 MMOL/L Anion Gap 12 5-14 MMOL/L Blood Urea Nitrogen 14 7-18 MG/DL Creatinine 0.88 0.60-1.30 MG/DL Estimat Glomerular Filtration Rate 102 BUN/Creatinine Ratio 16 Glucose Level 126 H 70-105 MG/DL Lactic Acid Level 1.35 0.50-2.00 MMOL/L Calcium Level 8.9 8.5-10.1 MG/DL Corrected Calcium 8.7 8.5-10.1 MG/DL Total Bilirubin 0.8 0.1-1.0 MG/DL Aspartate Amino Transf (AST/SGOT) 19 5-34 U/L Alanine Aminotransferase (ALT/SGPT) 51 0-55 U/L Alkaline Phosphatase 132 40-136 U/L C-Reactive Protein 17.51 H <0.50 MG/DL Total Protein 8.1 6.4-8.2 GM/DL Albumin 4.2 3.2-4.5 GM/DL Influenza Type A (RT-PCR) Not Detected Not Detecte Influenza Type B (RT-PCR) Not Detected Not Detecte SARS-CoV-2 RNA (RT-PCR) Not Detected Not Detecte My Orders Orders - ZAYRA DAMON DO Cbc With Automated Diff (06/03/22 18:28) Comprehensive Metabolic Panel (06/03/22 18:28) Influenza A And B By Pcr (06/03/22 18:28) Crp Fs (06/03/22 18:28) Covid 19 Inhouse Test (06/03/22 18:28) Chest Pa/Lat (2 View) (06/03/22 18:28) Albuterol/Ipra Inhalation Soln (Duoneb I (06/03/22 18:30) Methylprednisolone Sod Succ (Solu-Medrol (06/03/22 18:28) Svn Small Volume Nebulizer (06/03/22 18:28) Albuterol/Ipra Inhalation Soln (Duoneb I (06/03/22 18:28) Manual Differential (06/03/22 18:31) Lactic Acid Analyzer (06/03/22 18:44) Blood Culture (06/03/22 18:44) Azithromycin Injection (Zithromax Inject (06/03/22 19:12) Medications Given in ED Current Medications Medications Dose Ordered Sig/Cami Route Start Time Stop Time Status Last Admin Dose Admin Albuterol/ Ipratropium 3 ml ONCE ONCE INH 12/4/22 18:30 06/03/22 18:31 DC 06/03/22 18:30 3 ML Vital Signs/I&O 06/03/22 18:20 Temp 35.8 Pulse 136 Resp 22 B/P (MAP) 142/86 (104) Pulse Ox 86 O2 Delivery Room Air Capillary Refill : Diagnostic Imaging Diagonstic Imaging: Xray Plain Films/CT/US/NM/MRI: chest Comments Date of Exam:06/03/22 CHEST PA/LAT (2 VIEW) INDICATION: Cough and shortness of breath. COMPARISON: 07/02/2019. FINDINGS: Diaphragms are flattened compatible with air trapping. There is no evidence of alveolar pneumonia. There is no effusion. There is no pneumothorax. Heart size is normal. Pulmonary vascularity is normal. There is no acute osseous abnormality. IMPRESSION: Background features of COPD with pulmonary hyperinflation and air trapping. No acute superimposed cardiopulmonary process evident. Departure Impression Primary Impression: COPD (chronic obstructive pulmonary disease) Qualified Codes: J44.0 - Chronic obstructive pulmonary disease with (acute) lower respiratory infection Disposition: 30 STILL A PATIENT Condition: Stable Admissions Decision to Admit/Date: Jun 03, 2022 Time/Decision to Admit Time: 19:34 Departure-Patient Inst. Referrals: RAMYA KAUR APRN (PCP) Primary Care Physician CATALINA MONTEZ MD (Family) Primary Care Physician ZAYRA DAMON DO Jun 03, 2022 18:28
[2022-06-03] MEDS ORDERED: RT-ALBUTEROL/IPRATROPIUM 3 ML (DUONEB) VIAL INH ONE (18:30)
[2022-06-03 18:36] LABS: BASOPHILS # (AUTO) 0.1 10^3/uL (0.0-0.1); BASOPHILS % (AUTO) 0 % (0-10); EOSINOPHILS % (AUTO) 0 % (0-10); HEMATOCRIT 41 % (40-54); HEMOGLOBIN 13.2 g/dL (13.3-17.7); LYMPHOCYTES # (AUTO) 3.1 10^3/uL (1.0-4.0); LYMPHOCYTES % (AUTO) 11 % (12-44); MEAN CORPUSCULAR HEMOGLOBIN 27 pg (25-34); MEAN CORPUSCULAR HGB CONC 32 g/dL (32-36); MEAN CORPUSCULAR VOLUME 83 fL (80-99); MONOCYTES # (AUTO) 2.5 10^3/uL (0.0-1.0); MONOCYTES % (AUTO) 9 % (0-12); NEUTROPHILS % (AUTO) 78 % (42-75); PLATELET COUNT 380 10^3/uL (130-400); WHITE BLOOD COUNT 26.8 10^3/uL (4.3-11.0)
--- NOTE | 2022-06-03 18:51 | Diagnostic Imaging Report ---
INDICATION: Cough and shortness of breath. COMPARISON: 07/02/2019. FINDINGS: Diaphragms are flattened compatible with air trapping. There is no evidence of alveolar pneumonia. There is no effusion. There is no pneumothorax. Heart size is normal. Pulmonary vascularity is normal. There is no acute osseous abnormality. IMPRESSION: Background features of COPD with pulmonary hyperinflation and air trapping. No acute superimposed cardiopulmonary process evident. Dictated by: Dictated on workstation # [id number]
[2022-06-03 18:59] LABS: BILIRUBIN,TOTAL 0.8 MG/DL (0.1-1.0); CALCIUM 8.9 MG/DL (8.5-10.1); CREATININE SERUM 0.88 MG/DL (0.60-1.30); POTASSIUM 4.2 MMOL/L (3.6-5.0)
[2022-06-03 19:00] LABS: ALBUMIN 4.2 GM/DL (3.2-4.5); TOTAL PROTEIN 8.1 GM/DL (6.4-8.2)
[2022-06-03] MEDS ORDERED: AZITHROMYCIN INJECTION 500 MG in NS (IVPB) 250 ML IV STA (19:12)
[2022-06-03 19:22] LABS: LYMPHOCYTES % (MANUAL) 4 %; MONOCYTES % (MANUAL) 5 %; NEUTROPHILS % (MANUAL) 91 %
[2022-06-03 23:23] VITALS: BP 130/64
[2022-06-03 23:49] VITALS: BP 130/64
[2022-06-04] MEDS ORDERED: RT-ALBUTEROL/IPRATROPIUM 3 ML (DUONEB) VIAL INH PRN
[2022-06-04] MEDS: NS IV 1000 ML 1,000 ML IV SCH ×4 (00:19→19:58)
[2022-06-04] MEDS: oxyCODONE/APAP 5/325MG (PERCOCET 5) TABLET PO PRN (00:41)
[2022-06-04 03:42] VITALS: BP 112/69
[2022-06-04 06:03] LABS: BASOPHILS % (AUTO) 0 % (0-10); EOSINOPHILS % (AUTO) 0 % (0-10); HEMATOCRIT 38 % (40-54); HEMOGLOBIN 12.3 g/dL (13.3-17.7); LYMPHOCYTES # (AUTO) 1.5 10^3/uL (1.0-4.0); LYMPHOCYTES % (AUTO) 8 % (12-44); MEAN CORPUSCULAR HEMOGLOBIN 27 pg (25-34); MEAN CORPUSCULAR HGB CONC 32 g/dL (32-36); MEAN CORPUSCULAR VOLUME 85 fL (80-99); MEAN PLATELET VOLUME 9.2 fL (9.0-12.2); MONOCYTES # (AUTO) 0.7 10^3/uL (0.0-1.0); MONOCYTES % (AUTO) 4 % (0-12); NEUTROPHILS # (AUTO) 17.2 10^3/uL (1.8-7.8); NEUTROPHILS % (AUTO) 88 % (42-75); PLATELET COUNT 370 10^3/uL (130-400); WHITE BLOOD COUNT 19.6 10^3/uL (4.3-11.0)
[2022-06-04 06:15] LABS: POTASSIUM 4.6 MMOL/L (3.6-5.0)
[2022-06-04 06:17] LABS: CALCIUM 8.6 MG/DL (8.5-10.1)
[2022-06-04 06:21] LABS: CREATININE SERUM 0.75 MG/DL (0.60-1.30)
[2022-06-04] MEDS: RT-ALBUTEROL/IPRATROPIUM 3 ML (DUONEB) VIAL INH SCH ×5 (07:09→21:07)
[2022-06-04 08:00] VITALS: BP 107/73
[2022-06-04] MEDS ORDERED: NS IV 1000 ML 1,000 ML IV SCH (08:00)
[2022-06-04] MEDS: CEFEPIME INJECTION 1,000 MG in NS (IVPB) 50 ML IV SCH ×3 (08:06→19:58)
[2022-06-04 08:11] LABS: ABG BASE EXCESS -3.3 MMOL/L (-2.5-2.5); ABG OXYGEN SATURATION 97 % (94-100); ABG PCO2 48 MMHG (35-45); ABG PO2 103 MMHG (79-93); ABG TCO2 23.8 MMOL/L (21.0-31.0)
[2022-06-04 08:14] LABS: ABG PH 7.29 (7.37-7.43); ALLENS TEST YES-POS; INSPIRED O2 4.5 L; PATIENT TEMP 36.7; VENTILATOR NO
--- NOTE | 2022-06-04 09:05 | Diagnostic Imaging Report ---
INDICATION: Hypoxia. Comparison is made with prior examination 10/26/2021 FINDINGS: The heart size is normal. The lungs are clear. There appears to be some air trapping likely reflecting some degree of COPD. There is no pleural effusion or pneumothorax. Mediastinum is unremarkable. IMPRESSION: Air trapping suggestive of COPD otherwise unremarkable. Dictated by: Dictated on workstation # [id number]
[2022-06-04] MEDS: AZITHROMYCIN INJECTION 250 MG in NS (IVPB) 250 ML IV SCH (10:09)
[2022-06-04] MEDS ORDERED: ACET325T38 PO (12:09)
[2022-06-04] MEDS ORDERED: FLUT1BLS3 IH (12:09)
[2022-06-04 12:32] VITALS: BP 111/71
[2022-06-04 15:14] VITALS: BP 121/74
[2022-06-04] MEDS: predniSONE 20 MG TAB PO SCH (17:16)
[2022-06-04] MEDS: guaiFENesin/DM (ROBITUSSIN DM) 10 ML UDC PO PRN ×2 (17:17→22:58)
--- NOTE | 2022-06-04 17:23 | History & Physical ---
DAVID LAUGHLIN 06/04/22 1723: HPI History of Present Illness: 56 yo male admitted on 06/03 for high sepsis risk following an same day ER visit for SOB and cough. He says that his SOB has improved with O2 supplementation but that he still feels he is working to breathe. He complains of fatigue, an unremitting cough, and nausea with diffuse abdominal pain since last night. He denies vomiting or bloody stool. His last bowel movement was late last evening. He history of a perirectal abcess that was drained several months ago and reports concerns of a new abcess since his anal region has been "uncomfortable" for the past 3 weeks. When asked, he admits to intermittent chest pressure that he attributes to pericarditis diagnosed 2 years ago. He describes < 2 minute episodes of chest pressure with a "tight sensation" that occur in week-long spurts 1-2x/day with cessation for several weeks. He denies any sharp pain and/or radiating pain to the jaw or arm. He denies headache, lightheadedness, and dizziness. Attending Physician Alexa Arrieta Aprn PCP Admitting Physician: Sangeetha Schreiber MD Attending Physician: Néstor Perdue MD Consult Date of Admission Jun 03, 2022 at 22:40 Home Medications Home Medications Reviewed patient Home Medication Reconciliation performed by pharmacy medication reconciliations machining technician and/or nursing. Patients Allergies have been reviewed. Allergies Coded Allergies: No Known Drug Allergies (Unverified , 10/26/21) DHK-Dcrori-Nwrnns Hx Patient Social History Smoking Status: Current Everyday Smoker 2nd Hand Smoke Exposure: No Recent Hopitalizations: No Alcohol Use?: Yes Tobacco type used: Cigarettes Have you traveled recently?: No Immunizations Up To Date Tetanus Booster (TDap): Unknown Influenza Vaccine Up-to-Date: Yes; Up-to-Date First/Initial COVID19 Vaccinat: AUG 2020 Second COVID19 Vaccination Brandon: AUGUST 2020 Third COVID19 Vaccination Date: MAR 2021 Past Medical History h/o Pericarditis Tobacco abuse Family Medical History Significant Family History: Heart Disease, Cancer, Lung Disease Family History: Arthritis 19 MOTHER Cardiovascular disease 19 MOTHER Psychosocial problem 19 MOTHER Respiratory disorder 19 FATHER 19 MOTHER Review of Systems (CHC) Constitutional: no symptoms reported EENTM: no symptoms reported Respiratory: cough, short of breath, wheezing (on expiration) Cardiovascular: other (chest pressure/tighness) Gastrointestinal: RUQ (tenderness), abdominal pain (RUQ), nausea Genitourinary: no symptoms reported Musculoskeletal: other (no tenderness on palpation of chest wall ) Reviewed Test Results Reviewed Test Results Lab WBC: 06/03 18:31: 26.8 06/04 5:34: 19.6 Neutrophil #: 08/04 18:31: 21.0 06/04 5:34: 17.2 ABG 06/04 8:00 pH 7.19, pCO2 48, HCO3 22, pO2 103 lactic acid 06/04 8:00: 2.21 Radiology CXR 06/04 8:49: Air trapping suggestive of COPD otherwise unremarkable Physical Exam-([facility]) Physical Exam Vital Signs VS - Last 72 Hours, by Label 06/03/22 06/03/22 06/03/22 06/03/22 18:20 20:01 22:48 23:23 Temp 35.8 36.4 Pulse 136 115 109 Resp 22 18 24 B/P (MAP) 142/86 (104) 126/78 130/64 (86) Pulse Ox 86 95 92 93 O2 Delivery Room Air Nasal Cannula Nasal Cannula Nasal Cannula O2 Flow Rate 3.00 3.00 4.00 06/03/22 06/04/22 06/04/22 06/04/22 23:49 03:42 07:11 08:00 Temp 36.0 36.5 Pulse 109 90 118 Resp 16 18 B/P (MAP) 112/69 (83) 107/73 (84) Pulse Ox 93 95 91 98 O2 Delivery Nasal Cannula Nasal Cannula Vapotherm O2 Flow Rate 4.00 5.00 06/04/22 06/04/22 06/04/22 06/04/22 08:00 08:00 10:40 12:32 Temp 36.3 Pulse 95 Resp 18 B/P (MAP) 111/71 (84) Pulse Ox 100 93 100 95 O2 Delivery Vapotherm Nasal Cannula Vapotherm Vapotherm O2 Flow Rate 5.00 30.00 60.00 30.00 FiO2 30 60 06/04/22 06/04/22 06/04/22 06/04/22 15:14 15:24 18:52 19:19 Temp 36.8 37.1 Pulse 81 94 Resp 20 18 B/P (MAP) 121/74 (90) 112/72 (85) Pulse Ox 97 98 99 96 O2 Delivery Vapotherm Vapotherm Vapotherm Vapotherm O2 Flow Rate 60.00 30.00 30.00 30.00 30.00 30.00 FiO2 60 50 06/04/22 06/04/22 20:09 21:07 Pulse Ox 96 96 O2 Delivery Vapotherm Vapotherm O2 Flow Rate 30.00 30.00 FiO2 50 50 Capillary Refill : Less Than 3 Seconds General Appearance: mild distress Neck: normal inspection Respiratory: wheezing (on expiration) Cardiovascular: regular rate, rhythm Peripheral Pulses: 3+ Radial Pulses (R) Gastrointestinal: normal bowel sounds, tenderness (on palpation of RUQ and periumbilical region), other (negative gonzalez's, negative oburator test, psoas test, and heel tap ) Extremities: no pedal edema Skin: normal color, damp Assessment/Plan Assessment/Plan Admission Dx Admitting diagnosis of COPD, pericarditis, morbid obesity, and BPH. Reason for Inpatient Admission: Admitted on 06/03 for high sepsis risk after visiting the ER for SOB and cough earlier in the day. Assessment & Plan 1. Sepsis - patient meets 2 SIRS criteria; will continue to work-up source of infection and provide prophylaxis / fluids - cefipime HCl 1,000 mg/Sodium Chloride IV - azithromycin 250 mg IV - sodium chloride 1,000 mg IV 2. COPD exacerbation - methylprednisone solumedrol 125 mg at 18:29 06/03 - albuterol-ipratropium inhalation 3 ml at 18:30 06/03 - 3 L of O2 on nasal canula - 3 L of O2 on nasal canula - start oral prednisone 60 mg PO qday - restart Trelegy at home dose - start guafinesin/dextromethorphan for cough suppression 3. Mixed respiratory and metabolic acidosis 4. Chest pressure - reviewed cardiology records: 2019 MRI showed findings consistent with subacute or resolving pericarditis, in 09/2020 PRN use of colchicine for symptoms relief was permitted with a plan to eventually discontinue. - consider cardiology consult if symptoms do not improve 5. History of perirectal abscess - order CT scan per patient's complaints of rectal discomfort, history of perirectal abcess, and sepsis with unknown cause 6. Pericarditis - colchicine 0.6 mg PO qday 7. Benign prostatic hyperplasia - tamsulosin 0.4 mg PO qday NÉSTOR PERDUE MD 06/04/22 2155: HPI History of Present Illness: Time Seen by Provider: 12:20 Home Medications Allergies Coded Allergies: No Known Drug Allergies (Unverified , 10/26/21) [id number]-Neuzbt Hx Family Medical History Family History: Arthritis 19 MOTHER Cardiovascular disease 19 MOTHER Psychosocial problem 19 MOTHER Respiratory disorder 19 FATHER 19 MOTHER Physical Exam-([facility]) Physical Exam General Appearance: mild distress Respiratory: decreased breath sounds, accessory muscle use, wheezing (on expiration) Cardiovascular: regular rate, rhythm Gastrointestinal: normal bowel sounds; No tenderness Genital/Rectal: other (no perirectal erythema, fluctuance or drainage noted) Extremities: no pedal edema Neurologic/Psychiatric: alert, normal mood/affect Skin: diaphoresis Assessment/Plan Assessment/Plan Admission Status: Inpatient Order (span 2 midnights) Reason for Inpatient Admission: Sepsis and acute respiratory failure Supervisory-Addendum Brief Verification & Attestation Participated in pt care: history, MDM, physical Personally performed: exam, history, MDM, supervision of care Care discussed with: Medical Student Procedures: n/a I personally saw and examined patient, see my exam for my physical exam. I direc rosa the plan of care as documented by the medical student. DAVID LAUGHLIN Jun 04, 2022 17:23 NÉSTOR PERDUE MD Jun 04, 2022 21:55
[2022-06-04 19:19] VITALS: BP 112/72
[2022-06-04] MEDS: NICOTINE 21 MG (NICODERM) PATCH TD SCH (22:34)
[2022-06-04 23:00] VITALS: BP 123/68
[2022-06-04 23:06] LABS: BILIRUBIN,URINE NEGATIVE (NEGATIVE); CLARITY,URINE CLEAR; COLOR,URINE YELLOW; GLUCOSE, URINE (UA) NEGATIVE (NEGATIVE); KETONES,URINE NEGATIVE (NEGATIVE); LEUKOCYTE ESTERASE ,URINE NEGATIVE (NEGATIVE); NITRITE,URINE NEGATIVE (NEGATIVE); PROTEIN,URINE NEGATIVE (NEGATIVE)
[2022-06-04 23:12] LABS: BACTERIA,URINE NEGATIVE /HPF
[2022-06-05] VITALS (7 sets, daily range): BP systolic 106–142; BP diastolic 60–85
[2022-06-05] MEDS: CEFEPIME INJECTION 1,000 MG in NS (IVPB) 50 ML IV SCH ×4 (02:26→19:22)
[2022-06-05] MEDS: RT-ALBUTEROL/IPRATROPIUM 3 ML (DUONEB) VIAL INH SCH ×6 (02:30→21:34)
[2022-06-05] MEDS: NS IV 1000 ML 1,000 ML IV SCH ×3 (05:04→23:46)
[2022-06-05 05:37] LABS: BASOPHILS % (AUTO) 0 % (0-10); EOSINOPHILS % (AUTO) 0 % (0-10); HEMATOCRIT 37 % (40-54); HEMOGLOBIN 11.3 g/dL (13.3-17.7); LYMPHOCYTES # (AUTO) 1.1 10^3/uL (1.0-4.0); LYMPHOCYTES % (AUTO) 6 % (12-44); MEAN CORPUSCULAR HEMOGLOBIN 27 pg (25-34); MEAN CORPUSCULAR HGB CONC 31 g/dL (32-36); MEAN CORPUSCULAR VOLUME 88 fL (80-99); MEAN PLATELET VOLUME 9.4 fL (9.0-12.2); MONOCYTES # (AUTO) 0.8 10^3/uL (0.0-1.0); MONOCYTES % (AUTO) 4 % (0-12); NEUTROPHILS # (AUTO) 18.2 10^3/uL (1.8-7.8); NEUTROPHILS % (AUTO) 89 % (42-75); PLATELET COUNT 383 10^3/uL (130-400); WHITE BLOOD COUNT 20.3 10^3/uL (4.3-11.0)
[2022-06-05 05:47] LABS: POTASSIUM 4.6 MMOL/L (3.6-5.0)
[2022-06-05 05:53] LABS: CREATININE SERUM 0.72 MG/DL (0.60-1.30)
[2022-06-05] MEDS: predniSONE 20 MG TAB PO SCH (06:21)
[2022-06-05] MEDS: UMECLIDINIUM BROMIDE (INCRUSE ELLIPTA) 7'S IH SCH (06:47)
[2022-06-05] MEDS: RT--FLUTICASONE/SALMETEROL 232-14 (AIRDUO RespiCLICK) IH SCH ×2 (06:47→21:34)
[2022-06-05] MEDS: guaiFENesin/DM (ROBITUSSIN DM) 10 ML UDC PO PRN ×4 (07:57→23:46)
[2022-06-05] MEDS: TAMSULOSIN 0.4 MG (FLOMAX) CAP PO SCH (07:57)
[2022-06-05] MEDS: COLCHICINE 0.6 MG (COLCRYS) TABLET PO SCH (07:57)
[2022-06-05] MEDS: NICOTINE 21 MG (NICODERM) PATCH TD SCH (07:58)
[2022-06-05] MEDS ORDERED: IOHEXOL 350 MG/ML 100 ML (OMNIPAQUE 350) VIAL IV ONE (08:00)
[2022-06-05] MEDS ORDERED: CATHETER FLUSH 10 ML SYR IV PRN (08:00)
[2022-06-05] MEDS ORDERED: NS 100 ML (IVPB) BAG IV ONE (08:00)
[2022-06-05] MEDS ORDERED: HOLD METFORMIN - RECEIVED CONTRAST 20 ML VIAL IV SCH (08:00)
[2022-06-05] MEDS: AZITHROMYCIN INJECTION 250 MG in NS (IVPB) 250 ML IV SCH (08:08)
[2022-06-05] MEDS ORDERED: NON-FORMULARY MEDICATION 1 EA EA (Fluticasone/Umeclidin/Vilanter (Trelegy Ellipta 100-62.5 IH SCH (09:00)
[2022-06-05] MEDS: ENOXAPARIN 40 MG/0.4 ML (LOVENOX) SYR SQ SCH (10:18)
--- NOTE | 2022-06-05 13:21 | Diagnostic Imaging Report ---
CT ABDOMEN/PELVIS W TECHNIQUE: Multiple contiguous axial images were obtained through the abdomen and pelvis after administration of intravenous contrast. All CT scans use one or more of the following dose optimizing techniques: automated exposure control, MA and/or KvP adjustment based on patient size and exam type or iterative reconstruction. INDICATION: Perirectal abscess COMPARISON: 10/26/2021 FINDINGS: Lower chest: The lung bases are clear. No pericardial or pleural effusion. Peritoneum: No free intraperitoneal air or fluid. Liver and biliary system: Stable low-attenuation liver suggestive of hepatic steatosis. No focal hepatic lesion. The gallbladder is normal. No biliary duct dilation. Spleen and Pancreas: Spleen is normal. The pancreas enhances normally without mass lesion or peripancreatic inflammatory changes. Adrenals: Normal. tract: The kidneys enhance normally without suspicious mass or obstruction. Urinary bladder is distended without wall thickening. Prostate is normal. GI tract: Stomach is decompressed. No bowel obstruction. No pericolonic inflammatory changes. No abnormal fluid collection or inflammation in the perineal fat to suggest anal fissure. Mesial rectal fat is normal. Normal appendix. Vasculature and Lymph nodes: Normal caliber aorta. No abdominal or pelvic lymphadenopathy. Musculoskeletal: No concerning osseous lesion. IMPRESSION: 1. No perirectal/perianal abscess or fissure. 2. Stable diffuse hepatic steatosis. Dictated by: Dictated on workstation # [id number]
[2022-06-05] MEDS ORDERED: ATOR20TA66 PO (14:45)
[2022-06-05] MEDS ORDERED: RT-ALBUINH INH (14:45)
[2022-06-05] MEDS ORDERED: ALBU2.5V4 INH (14:45)
--- NOTE | 2022-06-05 21:36 | Progress Note ---
Subjective Subjective/Events-last exam Pt seen at 1315. He states he is feeling a little better, still very short of breath with any activity. He continues to have some central chest pressure. Discussed his history of pericarditis and last Cardiology notes from 2020, he does state that was his last visit. He states he was not aware of the recommenda tion from them to stop colchicine- notes say they would call him to let him know when to stop. Focused Exam Lactate Level 06/03/22 18:31: Lactic Acid Level 1.35 06/04/22 08:00: Lactic Acid Level 2.21*H 06/04/22 10:06: Lactic Acid Level 0.79 Objective Exam Last Set of Vital Signs Vital Signs Date Time Temp Pulse Resp B/P (MAP) Pulse Ox O2 Delivery O2 Flow Rate FiO2 06/05/22 20:24 110 20 125/78 (94) 96 06/05/22 20:12 36.8 Vapotherm 30.00 30.00 06/05/22 19:35 40 Capillary Refill : Less Than 3 Seconds I&O Intake and Output 06/04/22 23:59 Intake Total 4720 ml Output Total 1630 ml Balance 3090 ml Intake Oral 1320 ml IV Total 3400 ml Output Urine Total 1630 ml General: Alert, Mild Distress Lungs: Other (diffuse wheezing) Heart: Regular Rate Abdomen: Normal Bowel Sounds, Soft Extremities: No Edema Neuro: Normal Speech Psych/Mental Status: Mood NL Results/Procedures Lab Laboratory Tests 06/04/22 22:50: Urine Color YELLOW, Urine Clarity CLEAR, Urine pH 6.0, Urine Specific [place] >=1.030, Urine Protein NEGATIVE, Urine Glucose (UA) NEGATIVE, Urine Ketones NEGATIVE, Urine Nitrite NEGATIVE, Urine Bilirubin NEGATIVE, Urine Urobilinogen 0.2, Urine Leukocyte Esterase NEGATIVE, Urine RBC (Auto) NEGATIVE, Urine RBC NONE, Urine WBC NONE, Urine Squamous Epithelial Cells NONE, Urine Renal Epithelial Cells NONE, Urine Crystals NONE, Urine Bacteria NEGATIVE, Urine Casts NONE, Urine Mucus NEGATIVE, Urine Culture Indicated NO 06/05/22 05:00: White Blood Count 20.3H, Red Blood Count 4.17L, Hemoglobin 11.3L, Hematocrit 37L , Mean Corpuscular Volume 88, Mean Corpuscular Hemoglobin 27, Mean Corpuscular Hemoglobin Concent 31L, Red Cell Distribution Width 16.8H, Platelet Count 383, Mean Platelet Volume 9.4, Immature Granulocyte % (Auto) 1, Neutrophils (%) (Auto) 89H, Lymphocytes (%) (Auto) 6L, Monocytes (%) (Auto) 4, Eosinophils (%) (Auto) 0, Basophils (%) (Auto) 0, Neutrophils # (Auto) 18.2H, Lymphocytes # (Auto) 1.1, Monocytes # (Auto) 0.8, Eosinophils # (Auto) 0.0, Basophils # (Auto) 0.0, Immature Granulocyte # (Auto) 0.2H, Sodium Level 138, Potassium Level 4.6, Chloride Level 107, Carbon Dioxide Level 22, Anion Gap 9, Blood Urea Nitrogen 14, Creatinine 0.72, Estimat Glomerular Filtration Rate 108, BUN/Creatinine Ratio 19, Glucose Level 154H, Calcium Level 8.0L 06/05/22 13:41: Troponin I < 0.028 Microbiology 06/03/22 Blood Culture - Preliminary, Resulted No growth Radiology CXR 06/04 8:49: Air trapping suggestive of COPD otherwise unremarkable Assessment/Plan Assessment/Plan Assessment & Plan Sepsis - patient met 2 SIRS criteria - cefipime and azithromycin COPD exacerbation - Duonebs - oral prednisone 60 mg PO qday - restart Trelegy at home dose - start guafinesin/dextromethorphan for cough suppression Chest pressure - reviewed cardiology records: 2019 MRI showed findings consistent with subacute or resolving pericarditis, in 09/2020 PRN use of colchicine for symptoms relief was permitted with a plan to eventually discontinue. - Check troponin and echo History of perirectal abscess - order CT scan per patient's complaints of rectal discomfort, history of perirectal abcess, and sepsis with unknown cause - CT negative for abscess Benign prostatic hyperplasia - tamsulosin 0.4 mg PO qday DVT prophylaxis -Enoxaparin NÉSTOR PERDUE MD Jun 05, 2022 21:36
[2022-06-05] MEDS: oxyCODONE/APAP 5/325MG (PERCOCET 5) TABLET PO PRN (23:57)
[2022-06-06] MEDS: CEFEPIME INJECTION 1,000 MG in NS (IVPB) 50 ML IV SCH ×4 (01:10→19:17)
[2022-06-06] MEDS: RT-ALBUTEROL/IPRATROPIUM 3 ML (DUONEB) VIAL INH SCH ×6 (02:00→21:11)
[2022-06-06 03:10] VITALS: BP 140/90
[2022-06-06] MEDS: predniSONE 20 MG TAB PO SCH (05:41)
[2022-06-06 05:58] LABS: HEMATOCRIT 35 % (40-54); MEAN CORPUSCULAR HEMOGLOBIN 28 pg (25-34); MEAN CORPUSCULAR HGB CONC 32 g/dL (32-36); MEAN CORPUSCULAR VOLUME 87 fL (80-99); MEAN PLATELET VOLUME 9.4 fL (9.0-12.2); PLATELET COUNT 370 10^3/uL (130-400)
[2022-06-06 06:19] LABS: CREATININE SERUM 0.73 MG/DL (0.60-1.30); POTASSIUM 3.5 MMOL/L (3.6-5.0)
[2022-06-06] MEDS: RT--FLUTICASONE/SALMETEROL 232-14 (AIRDUO RespiCLICK) IH SCH ×2 (06:52→21:12)
[2022-06-06] MEDS: UMECLIDINIUM BROMIDE (INCRUSE ELLIPTA) 7'S IH SCH (06:53)
[2022-06-06 07:50] VITALS: BP 129/73
[2022-06-06] MEDS: NICOTINE 21 MG (NICODERM) PATCH TD SCH (08:07)
[2022-06-06] MEDS: AZITHROMYCIN 250 MG TAB (ZITHROMAX) PO SCH (08:08)
[2022-06-06] MEDS: COLCHICINE 0.6 MG (COLCRYS) TABLET PO SCH (08:09)
[2022-06-06] MEDS: TAMSULOSIN 0.4 MG (FLOMAX) CAP PO SCH (08:09)
[2022-06-06] MEDS ORDERED: KCL 20 MEQ TAB (K-DUR) PO NR (08:30)
[2022-06-06] MEDS: ENOXAPARIN 40 MG/0.4 ML (LOVENOX) SYR SQ SCH (09:03)
[2022-06-06] MEDS: NS IV 1000 ML 1,000 ML IV SCH ×2 (09:03→17:20)
[2022-06-06] MEDS: NICOTINE PATCH REMOVAL TP SCH (09:04)
[2022-06-06 12:31] VITALS: BP 141/83
--- NOTE | 2022-06-06 13:51 | Progress Note ---
Subjective Subjective/Events-last exam Pt states he is still feeling short of breath, but slightly improved. Is able to speak in longer sentences today. Focused Exam Lactate Level 06/03/22 18:31: Lactic Acid Level 1.35 06/04/22 08:00: Lactic Acid Level 2.21*H 06/04/22 10:06: Lactic Acid Level 0.79 Objective Exam Last Set of Vital Signs Vital Signs Date Time Temp Pulse Resp B/P (MAP) Pulse Ox O2 Delivery O2 Flow Rate FiO2 06/06/22 12:31 36.2 116 19 141/83 (102) Vapotherm 30.00 06/06/22 07:50 93 06/06/22 06:53 35 Capillary Refill : Less Than 3 Seconds I&O Intake and Output 06/06/22 00:00 Intake Total 4290 ml Output Total 1900 ml Balance 2390 ml Intake Oral 2190 ml IV Total 2100 ml Output Urine Total 1900 ml # Bowel Movements 1 General: Alert, Mild Distress Lungs: Other (wheezing) Heart: Regular Rate, No Murmurs Extremities: No Edema Neuro: Normal Speech Psych/Mental Status: Mood NL Results/Procedures Lab Laboratory Tests 06/06/22 05:06: White Blood Count 20.0H, Red Blood Count 3.98L, Hemoglobin 11.0L, Hematocrit 35L , Mean Corpuscular Volume 87, Mean Corpuscular Hemoglobin 28, Mean Corpuscular Hemoglobin Concent 32, Red Cell Distribution Width 16.9H, Platelet Count 370, Mean Platelet Volume 9.4, Sodium Level 140, Potassium Level 3.5L, Chloride Level 107, Carbon Dioxide Level 25, Anion Gap 8, Blood Urea Nitrogen 9, Creatinine 0.73, Estimat Glomerular Filtration Rate 107, BUN/Creatinine Ratio 12, Glucose Level 117H, Calcium Level 8.0L Microbiology 06/03/22 Blood Culture - Preliminary, Resulted No growth Radiology CXR 06/04 8:49: Air trapping suggestive of COPD otherwise unremarkable Assessment/Plan Assessment/Plan Assessment & Plan Sepsis - patient met 2 SIRS criteria on admit - cefipime and azithromycin COPD exacerbation - Duonebs - oral prednisone 60 mg PO qday - restart Trelegy at home dose - start guafinesin/dextromethorphan for cough suppression Chest pressure - reviewed cardiology records: 2019 MRI showed findings consistent with subacute or resolving pericarditis, in 09/2020 PRN use of colchicine for symptoms relief was permitted with a plan to eventually discontinue. - Check troponin and echo - 06/06 trop negative, echo no pericardial effusion, normal EF. EKG unremarkable. History of perirectal abscess - order CT scan per patient's complaints of rectal discomfort, history of perirectal abcess, and sepsis with unknown cause - CT negative for abscess Benign prostatic hyperplasia - tamsulosin 0.4 mg PO qday DVT prophylaxis -Enoxaparin NÉSTOR PERDUE MD Jun 06, 2022 13:51
[2022-06-06 16:14] VITALS: BP 112/74
[2022-06-06] MEDS: guaiFENesin/DM (ROBITUSSIN DM) 10 ML UDC PO PRN (17:19)
[2022-06-06] MEDS: oxyCODONE/APAP 5/325MG (PERCOCET 5) TABLET PO PRN (17:19)
--- NOTE | 2022-06-06 18:05 | Physician Query Clarification ---
Physician Query-General Query to Physician: The medical record reflects the following clinical scenario: History/Risk factors: Sepsis COPD, no documentation of home 02 use Clinical Findings: shortness of air with exertion, unable to lie flat on admission also documentation of shortness of air at rest, respiratory rate 22 on admission has been as high as 24 mostly 18-24, has been on supplemental oxygen since admission up to 50% 3 L on admission increased to 50% Remains on 5 L, 86% 02 Sat on admission on room air (P/F = 248) lowest O2 sat while on oxygen is 91% that was on 5 L (P/F=124) Treatment: Supplemental 02, Albuterol, Solu-Medrol IV, DuoNeb, azithromycin IV, Respiratory monitoring, Question: Is Acute Respiratory Failure a clinically valid diagnosis? Acute Respiratory Failure was documented in the Reason for Inpatient admission on the H and P with no further documentation of Acute Respiratory Failure in the medical record. If yes, please document in the Progress Notes and Discharge Summary. 1. Yes, Acute Respiratory Failure is clinically valid, present on admission and improving 2. No, Acute Respiratory Failure ruled out 3. Other, with explanation of clinical findings 4. Undetermined, no explanation for clinical findings In responding to this query, please exercise your independent professional judgment. The purpose of this communication is to more accurately reflect the complexity of your patients condition. The fact that a question is asked does not imply that any particular answer is desired or expected. Thank you for your timely response to this clarification. Katherine Slaughter MSN, RN [email or web address] PHYSICIAN RESPONSE: Based on the clinical findings in the record, please respond to the query above on this document as an addendum. Physician Response: Physician Response 1 If you have questions please contact: General Studies Program Chair: Ext: Thank you for your time and cooperation. [employer]/General Studies Program Chair This is a permanent part of the medical record KATHERINE SLAUGHTER Jun 06, 2022 18:05 NÉSTOR PERDUE MD Jun 06, 2022 19:29
[2022-06-06 19:23] VITALS: BP 122/76
[2022-06-07] VITALS (8 sets, daily range): BP systolic 123–138; BP diastolic 63–83
[2022-06-07] MEDS: guaiFENesin/DM (ROBITUSSIN DM) 10 ML UDC PO PRN ×3 (02:06→21:53)
[2022-06-07] MEDS: CEFEPIME INJECTION 1,000 MG in NS (IVPB) 50 ML IV SCH ×4 (02:07→21:47)
[2022-06-07] MEDS: RT-ALBUTEROL/IPRATROPIUM 3 ML (DUONEB) VIAL INH SCH ×4 (02:24→21:54)
[2022-06-07] MEDS: predniSONE 20 MG TAB PO SCH (05:58)
[2022-06-07 06:04] LABS: HEMATOCRIT 37 % (40-54); HEMOGLOBIN 11.7 g/dL (13.3-17.7); MEAN CORPUSCULAR HEMOGLOBIN 28 pg (25-34); MEAN CORPUSCULAR HGB CONC 32 g/dL (32-36); MEAN CORPUSCULAR VOLUME 86 fL (80-99); MEAN PLATELET VOLUME 9.3 fL (9.0-12.2); PLATELET COUNT 398 10^3/uL (130-400); WHITE BLOOD COUNT 20.2 10^3/uL (4.3-11.0)
[2022-06-07] MEDS ORDERED: ACETAMINOPHEN 500 MG TAB (TYLENOL) ONE (06:06)
[2022-06-07] MEDS: ACETAMINOPHEN 500 MG TAB (TYLENOL) PO PRN ×2 (06:08→14:02)
[2022-06-07 06:18] LABS: POTASSIUM 3.8 MMOL/L (3.6-5.0)
[2022-06-07 06:19] LABS: CALCIUM 8.5 MG/DL (8.5-10.1)
[2022-06-07 06:24] LABS: CREATININE SERUM 0.74 MG/DL (0.60-1.30)
[2022-06-07] MEDS: TAMSULOSIN 0.4 MG (FLOMAX) CAP PO SCH (08:41)
[2022-06-07] MEDS: ASPIRIN E.C. 81 MG (ECOTRIN) TAB PO SCH (08:41)
[2022-06-07] MEDS: NICOTINE 21 MG (NICODERM) PATCH TD SCH (08:41)
[2022-06-07] MEDS: AZITHROMYCIN 250 MG TAB (ZITHROMAX) PO SCH (08:41)
[2022-06-07] MEDS: COLCHICINE 0.6 MG (COLCRYS) TABLET PO SCH (08:41)
[2022-06-07] MEDS: ENOXAPARIN 40 MG/0.4 ML (LOVENOX) SYR SQ SCH (08:41)
[2022-06-07] MEDS: NICOTINE PATCH REMOVAL TP SCH (09:05)
[2022-06-07] MEDS: RT--FLUTICASONE/SALMETEROL 232-14 (AIRDUO RespiCLICK) IH SCH ×2 (11:35→21:55)
[2022-06-07] MEDS: UMECLIDINIUM BROMIDE (INCRUSE ELLIPTA) 7'S IH SCH (11:35)
--- NOTE | 2022-06-07 12:49 | Progress Note ---
Subjective Subjective/Events-last exam Pt states he is feeling much better today, feels he could breathe more deeply for his treatments. Would like to go home if possible, but is still on 5 lpm supplemental oxygen. Objective Exam Last Set of Vital Signs Vital Signs Date Time Temp Pulse Resp B/P (MAP) Pulse Ox O2 Delivery O2 Flow Rate FiO2 06/07/22 10:45 High Flow N/C 4.00 06/07/22 10:39 95 06/07/22 08:04 36.6 74 19 138/83 (101) 06/06/22 14:45 35 Capillary Refill : Less Than 3 Seconds I&O Intake and Output 06/07/22 00:00 Intake Total 2350 ml Output Total 3775 ml Balance -1425 ml Intake Oral 2250 ml IV Total 100 ml Output Urine Total 3775 ml # Bowel Movements 2 General: Alert, No Acute Distress Lungs: Other (wheezing throughout with increased air movement compared to prior ) Heart: Regular Rate, No Murmurs Neuro: Normal Speech Psych/Mental Status: Mood NL Results/Procedures Lab Laboratory Tests 06/07/22 05:43: White Blood Count 20.2H, Red Blood Count 4.26L, Hemoglobin 11.7L, Hematocrit 37L , Mean Corpuscular Volume 86, Mean Corpuscular Hemoglobin 28, Mean Corpuscular Hemoglobin Concent 32, Red Cell Distribution Width 17.0H, Platelet Count 398, Mean Platelet Volume 9.3, Sodium Level 138, Potassium Level 3.8, Chloride Level 103, Carbon Dioxide Level 29, Anion Gap 6, Blood Urea Nitrogen 12, Creatinine 0.74, Estimat Glomerular Filtration Rate 107, BUN/Creatinine Ratio 16, Glucose Level 96, Calcium Level 8.5 Microbiology 06/03/22 Blood Culture - Preliminary, Resulted No growth Radiology CXR 06/04 8:49: Air trapping suggestive of COPD otherwise unremarkable Assessment/Plan Assessment/Plan Assessment & Plan Sepsis - patient met 2 SIRS criteria on admit - cefipime and azithromycin COPD exacerbation - Duonebs - oral prednisone 60 mg PO qday - restart Trelegy at home dose - start guafinesin/dextromethorphan for cough suppression - 06/07 taper prednisone, continues to need high level of supplemental O2, possible d/c tomorrow Chest pressure - reviewed cardiology records: 2019 MRI showed findings consistent with subacute or resolving pericarditis, in 09/2020 PRN use of colchicine for symptoms relief was permitted with a plan to eventually discontinue. - Check troponin and echo - 06/06 trop negative, echo no pericardial effusion, normal EF. EKG unremarkable. History of perirectal abscess - order CT scan per patient's complaints of rectal discomfort, history of perirectal abcess, and sepsis with unknown cause - CT negative for abscess Benign prostatic hyperplasia - tamsulosin 0.4 mg PO qday DVT prophylaxis -Enoxaparin NÉSTOR PERDUE MD Jun 07, 2022 12:49
[2022-06-07] MEDS ORDERED: NICO-685 TD (12:50)
[2022-06-08] MEDS: CEFEPIME INJECTION 1,000 MG in NS (IVPB) 50 ML IV SCH ×2 (02:39→08:45)
[2022-06-08] MEDS: RT-ALBUTEROL/IPRATROPIUM 3 ML (DUONEB) VIAL INH SCH ×2 (03:11→07:38)
[2022-06-08] MEDS: guaiFENesin/DM (ROBITUSSIN DM) 10 ML UDC PO PRN (03:47)
[2022-06-08 03:55] VITALS: BP 138/72
[2022-06-08 06:10] LABS: HEMATOCRIT 37 % (40-54); HEMOGLOBIN 11.7 g/dL (13.3-17.7); MEAN CORPUSCULAR HEMOGLOBIN 27 pg (25-34); MEAN CORPUSCULAR HGB CONC 32 g/dL (32-36); MEAN CORPUSCULAR VOLUME 86 fL (80-99); MEAN PLATELET VOLUME 9.1 fL (9.0-12.2); PLATELET COUNT 387 10^3/uL (130-400); WHITE BLOOD COUNT 18.4 10^3/uL (4.3-11.0)
[2022-06-08 06:33] LABS: CALCIUM 8.3 MG/DL (8.5-10.1); CREATININE SERUM 0.71 MG/DL (0.60-1.30); POTASSIUM 3.1 MMOL/L (3.6-5.0)
[2022-06-08] MEDS: RT--FLUTICASONE/SALMETEROL 232-14 (AIRDUO RespiCLICK) IH SCH (07:40)
[2022-06-08] MEDS: UMECLIDINIUM BROMIDE (INCRUSE ELLIPTA) 7'S IH SCH (07:40)
[2022-06-08] MEDS ORDERED: PRD10T PO (07:57)
[2022-06-08] MEDS ORDERED: CEFD300C3 PO (07:57)
[2022-06-08 08:00] VITALS: BP 127/73
[2022-06-08] MEDS ORDERED: predniSONE 20 MG TAB PO SCH (08:00)
[2022-06-08] MEDS ORDERED: KCL 20 MEQ TAB (K-DUR) PO ONE (08:00)
[2022-06-08] MEDS: TAMSULOSIN 0.4 MG (FLOMAX) CAP PO SCH (08:45)
[2022-06-08] MEDS: AZITHROMYCIN 250 MG TAB (ZITHROMAX) PO SCH (08:45)
[2022-06-08] MEDS: NICOTINE 21 MG (NICODERM) PATCH TD SCH (08:46)
[2022-06-08] MEDS: ASPIRIN E.C. 81 MG (ECOTRIN) TAB PO SCH (08:46)
[2022-06-08] MEDS: COLCHICINE 0.6 MG (COLCRYS) TABLET PO SCH (08:51)
[2022-06-08] MEDS: NICOTINE PATCH REMOVAL TP SCH (08:52)
[2022-06-08] MEDS: ENOXAPARIN 40 MG/0.4 ML (LOVENOX) SYR SQ SCH (08:56)
--- NOTE | 2022-06-08 11:49 | Discharge Summary ---
Discharge Summary Hospital Course Hospital Course Date of Admission: Jun 03, 2022 at 22:40 Admission Diagnosis : Family Physician/Provider: Aramis Armstrong MD Date of Discharge: 06/08/22 Discharge Diagnosis: Sepsis COPD exacerbation Chest pressure History of perirectal abscess Benign prostatic hyperplasia Hospital Course: Sepsis - patient met 2 SIRS criteria on admit- treated with cefepime and azithromycin for possible pneumonia, but no clear infiltrate noted on CXR. COPD exacerbation- treated with Duonebs and steroid taper, resumed home Trelegy. Discharged home with supplemental oxygen. Chest pressure- thought to be related to COPD exacerbation - reviewed cardiology records: 2019 MRI showed findings consistent with subacute or resolving pericarditis, in 09/2020 PRN use of colchicine for symptoms relief was permitted with a plan to eventually discontinue. - 06/06 trop negative, echo no pericardial effusion, normal EF. EKG unremarkable. History of perirectal abscess - order CT scan per patient's complaints of rectal discomfort, history of perirectal abcess, and sepsis with unknown cause - CT negative for abscess Benign prostatic hyperplasia - tamsulosin Labs and Pending Lab Test: Laboratory Tests 06/08/22 05:48: White Blood Count 18.4H, Red Blood Count 4.32, Hemoglobin 11.7L, Hematocrit 37L, Mean Corpuscular Volume 86, Mean Corpuscular Hemoglobin 27, Mean Corpuscular Hemoglobin Concent 32, Red Cell Distribution Width 16.5H, Platelet Count 387, Mean Platelet Volume 9.1, Sodium Level 140, Potassium Level 3.1L, Chloride Level 103, Carbon Dioxide Level 27, Anion Gap 10, Blood Urea Nitrogen 12, Creatinine 0.71, Estimat Glomerular Filtration Rate 108, BUN/Creatinine Ratio 17, Glucose Level 136H, Calcium Level 8.3L Microbiology 06/03/22 Blood Culture - Preliminary, Resulted No growth Home Meds Active Cefdinir 300 Mg Capsule 300 Mg PO BID Prednisone 10 Mg Tab 0 PO UD Take 5 tabs(60mg)daily, decrease by 1 tab(10mg) every other day. Nicotine Patch (Nicotine) 21 Mg/24 Hour Patch.td24 21 Mg TD DAILY Reported Albuterol Sulfate 2.5 Mg/3 Ml (0.083 %) Vial.neb 3 Ml INH Q4H PRN Ventolin Hfa (Albuterol Sulfate) 1 Puff Puff 1 Puff INH Q4H PRN Atorvastatin Calcium 20 Mg Tablet 20 Mg PO DAILY Trelegy Ellipta 100-62.5-25 (Fluticasone/Umeclidin/Vilanter) 100-62.5 Blst.w.dev 1 Each IH DAILY Tylenol (Acetaminophen) 325 Mg Tablet 650 Mg PO Q6H PRN Colchicine 0.6 Mg Tablet 0.6 Mg PO DAILY Flomax (Tamsulosin HCl) 0.4 Mg Cap 0.4 Mg PO DAILY Assessment/Pt DC Instructions Follow up with primary doctor within a week of discharge. Discharge Diet: Regular Diet Activity as Tolerated: Yes Discharge Physical Examination Allergies: Coded Allergies: No Known Drug Allergies (Unverified , 10/26/21) General Appearance: No Apparent Distress, WD/WN Respiratory: Wheezing (slight end expiratory) Cardiovascular: Regular Rate, Rhythm, No Murmur Extremity: No Pedal Edema Skin: Normal Color, Warm/Dry Neurologic/Psychiatric: Alert, Normal Mood/Affect NÉSTOR PERDUE MD Jun 08, 2022 11:49
[2022-06-08 12:35] VITALS: BP 143/89
[2022-06-08 13:56] VITALS: BP 143/89
[2022-06-09] MEDS ORDERED: predniSONE 20 MG TAB PO SCH (09:00)
== END 2022-06-08 13:45 | disposition home or self-care (01) | DRG 871 ==
LOC: EDUNIT# 18:19 → ER FS 18:22 → 4TH 22:40
PROVIDERS: ADMIT Family Medicine; ATTEND Family Medicine
PROC: 5A0935A Assistance with Respiratory Ventilation, Less than 24 Consecutive Hours, High Flow/Velocity Cannula (ICD-10-PCS; principal; 2022-06-06)
DX: A41.9 Sepsis, unspecified organism (principal); J96.00 Acute respiratory failure, unspecified whether with hypoxia or hypercapnia; J44.1 Chronic obstructive pulmonary disease with (acute) exacerbation; I31.9 Disease of pericardium, unspecified; E87.4 Mixed disorder of acid-base balance; N40.0 Benign prostatic hyperplasia without lower urinary tract symptoms; F17.210 Nicotine dependence, cigarettes, uncomplicated; E66.01 Morbid (severe) obesity due to excess calories; E78.00 Pure hypercholesterolemia, unspecified; M10.9 Gout, unspecified; Z20.822 Contact with and (suspected) exposure to COVID-19; Z68.30 Body mass index [BMI] 30.0-30.9, adult; Z79.899 Other long term (current) drug therapy
CPT/HCPCS: 36415; 36600; 71045; 71046; 74177; 80048; 80053; 81000; 82805; 83605; 84145; 84484; 85007; 85025; 85027; 86141; 87040; 87636; 93005; 93306; 94640; 94760; 94761

== ENCOUNTER 2022-09-06 17:29 | Emergency (ER) | payer MEDICARE ==
[~2022-09-06] VITALS: Ht 177 cm; Wt 100.0 kg
[~2022-09-06 17:29] MED LIST changes: +ACET325T38 PO; +ALBU2.5V4 INH; +ATOR20TA66 PO; +CEFD300C3 PO; +FLUT1BLS3 IH; +NICO-685 TD; +PRD10T PO; +RT-ALBUINH INH
[2022-09-06 17:55] VITALS: BP 144/68
[2022-09-06 17:56] LABS: BASOPHILS % (AUTO) 0 % (0-10); EOSINOPHILS # (AUTO) 0.1 10^3/uL (0.0-0.3); EOSINOPHILS % (AUTO) 1 % (0-10); HEMATOCRIT 37 % (40-54); HEMOGLOBIN 12.2 g/dL (13.3-17.7); LYMPHOCYTES # (AUTO) 3.6 10^3/uL (1.0-4.0); LYMPHOCYTES % (AUTO) 40 % (12-44); MEAN CORPUSCULAR HEMOGLOBIN 28 pg (25-34); MEAN CORPUSCULAR HGB CONC 33 g/dL (32-36); MEAN CORPUSCULAR VOLUME 86 fL (80-99); MEAN PLATELET VOLUME 8.9 fL (9.0-12.2); MONOCYTES # (AUTO) 0.9 10^3/uL (0.0-1.0); MONOCYTES % (AUTO) 10 % (0-12); NEUTROPHILS # (AUTO) 4.3 10^3/uL (1.8-7.8); NEUTROPHILS % (AUTO) 48 % (42-75); PLATELET COUNT 242 10^3/uL (130-400); WHITE BLOOD COUNT 8.9 10^3/uL (4.3-11.0)
--- NOTE | 2022-09-06 18:01 | Diagnostic Imaging Report ---
EXAM: CHEST 1 VIEW AP/PA ONLY INDICATION: Shortness of breath. COPD. COMPARISON: 06/04/2022. FINDINGS: Hyperinflation. No focal pulmonary opacity. No pleural effusion or pneumothorax. No acute osseous findings. IMPRESSION: No acute cardiopulmonary findings. COPD. Dictated by: Dictated on workstation # [id number]
[2022-09-06 18:13] LABS: BAND NEUTROPHILS 9 %; LYMPHOCYTES % (MANUAL) 32 %; MONOCYTES % (MANUAL) 12 %; NEUTROPHILS % (MANUAL) 39 %
[2022-09-06 18:14] LABS: ATYPICAL LYMPHOCYTES 5 %; BASOPHILS % (MANUAL) 1 %; EOSINOPHILS % (MANUAL) 2 %; PLATELET ESTIMATE NORMAL; RBC MORPH NORMAL
[2022-09-06 18:27] LABS: BUN/CREATININE RATIO 14; CARBON DIOXIDE 25 MMOL/L (21-32); CHLORIDE 102 MMOL/L (98-107); CREATININE SERUM 0.87 MG/DL (0.60-1.30); GFR ESTIMATED 102; POTASSIUM 3.7 MMOL/L (3.6-5.0); SODIUM 138 MMOL/L (135-145)
[2022-09-06 18:28] LABS: ALANINE AMINOTRANSFERASE 46 U/L (0-55); ALBUMIN 4.1 GM/DL (3.2-4.5); ALKALINE PHOSPHATASE 106 U/L (40-136); BILIRUBIN,TOTAL 0.3 MG/DL (0.1-1.0); CALCIUM 8.4 MG/DL (8.5-10.1); GLUCOSE 107 MG/DL (70-105)
--- NOTE | 2022-09-06 18:40 | ED Back Pain ---
General Chief Complaint: Respiratory Problems Stated Complaint: SOB Nursing Triage Note: PT REPORTS HE HAS FELT MORE SHORT OF BREATH AT HOME ON HIS 4L OF OXYGEN. HE REPORTS HE HAS COPD AND HAS BEEN ON 4L SINCE MAY. HE TOOK A SH[employer] AND FELT LIGHTHEADED AND WEAK. Source of Information: Patient Exam Limitations: No Limitations History of Present Illness Date Seen by Provider: Sep 06, 2022 Time Seen by Provider: 17:30 Initial Comments Patient is a 56-year-old male with COPD, 4 L supplemental O2 dependent who presents with dizziness upon waking this morning. Patient states his oxygen levels were in the 80s to low 90s this morning while wearing his oxygen concentrator. He reports intermittent dizziness today while standing and with movement. No focal extremity weakness or loss of sensation. He denies he adache, change in vision, chest pain palpitations or increased shortness of breath. No fever chills, sore throat, worsening cough, leg pain or swelling. No other acute symptoms or complaints. Timing/Duration: Other Pain/Injury Location: Other Radiation: Other Method of Injury: Other Modifying Factors: Improves With Other Associated Symptoms: other Allergies and Home Medications Allergies Coded Allergies: No Known Drug Allergies (Unverified , 10/26/21) Patient Home Medication List Home Medication List Reviewed: Yes Acetaminophen (Tylenol) 325 Mg Tablet, 650 MG PO Q6H PRN for PAIN-MILD (1-4), (Reported) Entered as Reported by: BRANDEN VILA on 06/04/22 1209 Albuterol Sulfate (Ventolin Hfa) 1 Puff Puff, 1 PUFF INH Q4H PRN for SHORTNESS OF BREATH, (Reported) Entered as Reported by: BRANDEN VILA on 06/05/22 1445 Albuterol Sulfate (Albuterol Sulfate) 2.5 Mg/3 Ml (0.083 %) Vial.neb, 3 ML INH Q4H PRN for SHORTNESS OF BREATH, (Reported) Entered as Reported by: BRANDEN VILA on 06/05/22 1445 Atorvastatin Calcium (Atorvastatin Calcium) 20 Mg Tablet, 20 MG PO DAILY, (Reported) Entered as Reported by: BRANDEN VILA on 06/05/22 1445 Cefdinir (Cefdinir) 300 Mg Capsule, 300 MG PO BID Prescribed by: NÉSTOR PERDUE on 06/08/22 0757 Colchicine (Colchicine) 0.6 Mg Tablet, 0.6 MG PO DAILY, (Reported) Entered as Reported by: JOY AGUILAR on 10/27/21 1313 Fluticasone/Umeclidin/Vilanter (Trelegy Ellipta 100-62.5-25) 100-62.5 Blst.w.dev, 1 EACH IH DAILY, (Reported) Entered as Reported by: BRANDEN VILA on 06/04/22 1209 Nicotine (Nicotine Patch) 21 Mg/24 Hour Patch.td24, 21 MG TD DAILY Prescribed by: NÉSTOR PERDUE on 06/07/22 1250 Prednisone (Prednisone) 10 Mg Tab, 0 PO UD Prescribed by: NÉSTOR PERDUE on 06/08/22 0757 Tamsulosin HCl (Flomax) 0.4 Mg Cap, 0.4 MG PO DAILY, (Reported) Entered as Reported by: MISHEL PATRICIA on 07/02/19 1458 Review of Systems Constitutional: see HPI EENTM: see HPI Respiratory: see HPI Cardiovascular: see HPI Gastrointestinal: see HPI Genitourinary: see HPI Musculoskeletal: see HPI Skin: see HPI Psychiatric/Neurological: See HPI All Other Systems Reviewed Negative Unless Noted: No Past Uykuqkb-Rhshpd-Wkqeqw Hx Patient Social History Tobacco Use?: No Tobacco type used: Cigarettes Smoking Status: Former Smoker Use of E-Cig and/or Vaping dev: No Substance use?: No Alcohol Use?: No Pt feels they are or have been: No Immunizations Up To Date Tetanus Booster (TDap): Unknown PED Vaccines UTD: No First/Initial COVID19 Vaccinat: AUG 2020 Second COVID19 Vaccination Brandon: AUGUST 2020 Third COVID19 Vaccination Date: MAR 2021 Seasonal Allergies Seasonal Allergies: No Past Medical History Surgery/Hospitalization HX: COPD, jaw sx Surgeries: Yes (Jaw Sx from fracture) Respiratory: Yes COPD Currently Using CPAP: No Currently Using BIPAP: No Cardiac: Yes High Cholesterol Neurological: No Reproductive Disorders: No Genitourinary: Yes Prostate Problems Gastrointestinal: No Musculoskeletal: No Gout Endocrine: No HEENT: No Loss of Vision: Denies Hearing Impairment: Denies Cancer: No Psychosocial: No Integumentary: No Blood Disorders: No Family Medical History Arthritis 19 MOTHER Cardiovascular disease 19 MOTHER Psychosocial problem 19 MOTHER Respiratory disorder 19 FATHER 19 MOTHER Heart Disease, Cancer, Lung Disease Physical Exam Vital Signs Vital Signs - First Documented 09/06/22 17:32 Temp 36.5 Pulse 93 Resp 16 B/P (MAP) 123/96 (105) Pulse Ox 96 O2 Delivery FI02 O2 Flow Rate 4.00 Capillary Refill : Less Than 3 Seconds Height, Weight, BMI Height: 5'10.00" Weight: 205lbs. oz. [id number]; 31.00 BMI Method:Stated General Appearance: No Apparent Distress, WD/WN, Anxious HEENT: PERRL/EOMI, Normal ENT Inspection, Pharynx Normal Neck: Full Range of Motion, Normal Inspection Cardiovascular: Regular Rate, Rhythm, Other (No calf tenderness or swelling) Respiratory: Lungs Clear, Decreased Breath Sounds Gastrointestinal: Non Tender, Soft Back: Normal Inspection Extremity: Normal Capillary Refill, Normal Inspection Neurologic/Psychiatric: Alert, Oriented x3 Skin: Normal Color Progress/Results/Core Measures Results/Orders Lab Results Laboratory Tests Test 09/06/22 17:49 Range/Units White Blood Count 8.9 4.3-11.0 10^3/uL Red Blood Count 4.32 4.30-5.52 10^6/uL Hemoglobin 12.2 L 13.3-17.7 g/dL Hematocrit 37 L 40-54 % Mean Corpuscular Volume 86 80-99 fL Mean Corpuscular Hemoglobin 28 25-34 pg Mean Corpuscular Hemoglobin Concent 33 32-36 g/dL Red Cell Distribution Width 15.2 H 10.0-14.5 % Platelet Count 242 130-400 10^3/uL Mean Platelet Volume 8.9 L 9.0-12.2 fL Immature Granulocyte % (Auto) 0 % Neutrophils (%) (Auto) 48 42-75 % Lymphocytes (%) (Auto) 40 12-44 % Monocytes (%) (Auto) 10 0-12 % Eosinophils (%) (Auto) 1 0-10 % Basophils (%) (Auto) 0 0-10 % Neutrophils # (Auto) 4.3 1.8-7.8 10^3/uL Lymphocytes # (Auto) 3.6 1.0-4.0 10^3/uL Monocytes # (Auto) 0.9 0.0-1.0 10^3/uL Eosinophils # (Auto) 0.1 0.0-0.3 10^3/uL Basophils # (Auto) 0.0 0.0-0.1 10^3/uL Immature Granulocyte # (Auto) 0.0 0.0-0.1 10^3/uL Neutrophils % (Manual) 39 % Lymphocytes % (Manual) 32 % Monocytes % (Manual) 12 % Eosinophils % (Manual) 2 % Basophils % (Manual) 1 % Band Neutrophils 9 % Atypical Lymphocytes 5 % Platelet Estimate NORMAL Blood Morphology Comment NORMAL Sodium Level 138 135-145 MMOL/L Potassium Level 3.7 3.6-5.0 MMOL/L Chloride Level 102 98-107 MMOL/L Carbon Dioxide Level 25 21-32 MMOL/L Anion Gap 11 5-14 MMOL/L Blood Urea Nitrogen 12 7-18 MG/DL Creatinine 0.87 0.60-1.30 MG/DL Estimat Glomerular Filtration Rate 102 BUN/Creatinine Ratio 14 Glucose Level 107 H 70-105 MG/DL Calcium Level 8.4 L 8.5-10.1 MG/DL Corrected Calcium 8.3 L 8.5-10.1 MG/DL Total Bilirubin 0.3 0.1-1.0 MG/DL Aspartate Amino Transf (AST/SGOT) 35 H 5-34 U/L Alanine Aminotransferase (ALT/SGPT) 46 0-55 U/L Alkaline Phosphatase 106 40-136 U/L Troponin I < 0.30 <0.30 NG/ML Pro-B-Type Natriuretic Peptide 94.2 <125.0 PG/ML Total Protein 7.0 6.4-8.2 GM/DL Albumin 4.1 3.2-4.5 GM/DL My Orders Orders - KENDY ELLIOTT DO Cbc With Automated Diff (09/06/22 17:39) Comprehensive Metabolic Panel (09/06/22 17:39) Troponin I [place] (09/06/22 17:39) Ekg Tracing (09/06/22 17:39) Chest 1 View Ap/Pa Only (09/06/22 17:39) Probnp Fs (09/06/22 17:39) Manual Differential (09/06/22 17:49) Vital Signs/I&O 09/06/22 09/06/22 09/06/22 17:32 17:32 17:55 Temp 36.5 Pulse 93 93 Resp 16 B/P (MAP) 123/96 (105) 144/68 (93) Pulse Ox 96 O2 Delivery FI02 Nasal Cannula O2 Flow Rate 4.00 4.00 Blood Pressure Mean: 93 Departure Communication (Admissions) Chest x-ray: No acute cardiopulmonary disease on preliminary ED review. EKG y: Sinus rhythm, rate 65, no acute ST-T wave changes Patient with dizziness with standing. Orthostatic vital signs normal. EKG, lab reassuring. No arrhythmia present on monitor peer patient's O2 saturation greater than 94%. Vital signs remained stable throughout ED stay. Recommendations are watchful waiting and close PCP follow-up. Return precautions reviewed. Patient verbalizes understanding agreement with discharge instructions prior to departure. Impression Primary Impression: Dizziness Additional Impression: COPD (chronic obstructive pulmonary disease) Disposition: HOME, SELF-CARE Condition: Stable Departure-Patient Inst. Decision time for Depature: 18:39 Referrals: RAMYA KAUR APRN (PCP) Primary Care Physician CATALINA MONTEZ MD (Family) Primary Care Physician Patient Instructions: Dizziness, Adult ED, Chronic Obstructive Pulmonary Disease (COPD), Including Emphysema Add. Discharge Instructions: You were evaluated in the emergency department for dizziness. EKG lab and imaging studies were performed and are nondiagnostic. The cause of your symptoms has not been determined. Please go home and rest, continue home medications and use of home concentrator. Follow-up with your PCP early next week for reevaluation. In the meantime, if you develop new or worsening sympto ms, return to the emergency department. All discharge instructions reviewed with patient and/or family. Voiced understanding. KENDY ELLIOTT DO Sep 06, 2022 18:40
[2022-09-06 18:44] VITALS: BP 117/63
== END 2022-09-06 18:45 | disposition home or self-care (01) ==
LOC: EDUNIT# 17:29 → ER FS 17:30
DX: R42 Dizziness and giddiness (principal); J44.9 Chronic obstructive pulmonary disease, unspecified; Z99.81 Dependence on supplemental oxygen; Z87.891 Personal history of nicotine dependence
CPT/HCPCS: 36415; 71045; 80053; 83880; 84484; 85007; 85027; 93005